=== PATIENT | male | born 1975 | race Caucasian/White ===

== ENCOUNTER 2016-04-19 13:38 | Emergency (ER) | payer BC ==
[2016-04-19 14:00] VITALS: BP 123/64; PULSE 77; RESP 17; TEMP 98.4
--- NOTE | 2016-04-19 15:04 | ED ---
URI HPI - General Chief Complaint: Upper Respiratory Infection Stated Complaint: sore throat/Ribs hurting Time Seen by Provider: 04/19/16 14:40 Source: patient, RN notes reviewed Mode of arrival: ambulatory Limitations: no limitations - History of Present Illness Initial Comments: Patient is a 32-year-old male with chief complaint of a left rib pain with coughing. Patient reports he is recently gotten over strep throat and influenza Plan the antibiotics approximately 3 days ago. Patient reports that he has no sore throat or upper respiratory congestion but feels that he now has bronchitis and possible pneumonia with this increased cough in the chest pain. Patient reports that earlier today he was coughing so hard he felt a pop in his left ribs. Patient denies any other specific injury to cause the pain. He denies any shortness of breath or chest pain right now. Patient denies any fever or chills. - Related Data Home Medications Medication Instructions Recorded Confirmed Atenolol [Atenolol] 50 mg PO DAILY@1200 08/13/15 09/28/15 Diazepam [Diazepam] 10 mg PO DAILY@1200 08/13/15 09/28/15 Previous Rx's Medication Instructions Recorded Albuterol Inhaler [Ventolin Hfa 1 - 2 puff INHALATION Q6HR PRN #1 04/19/16 Inhaler] inhaler methylPREDNISolone Dose Pack 4 mg PO DIRECTED #21 package 04/19/16 [Medrol Dose Pack] Allergies Allergy/AdvReac Type Severity Reaction Status Date / Time codeine Allergy Hallucinati Verified 04/19/16 13:56 ons Penicillins Allergy Rash/Hives Verified 04/19/16 13:56 Review of Systems ROS Statement: Those systems with pertinent positive or pertinent negative responses have been documented in the HPI. ROS Other: All systems not noted in ROS Statement are negative. Past Medical History Past Medical History: Hypertension History of Any Multi-Drug Resistant Organisms: None Reported Past Surgical History: No Surgical Hx Reported Past Psychological History: Anxiety Smoking Status: Current every day smoker Past Alcohol Use History: None Reported Past Drug Use History: None Reported General Exam - General Exam Comments Initial Comments: Patient is a well-appearing 40-year-old male. He does not appear to be in any acute distress. Limitations: no limitations General appearance: alert, in no apparent distress Head exam: Present: atraumatic, normocephalic, normal inspection Eye exam: Present: normal appearance, PERRL, EOMI. Absent: scleral icterus, conjunctival injection, periorbital swelling ENT exam: Present: normal exam, mucous membranes moist Neck exam: Present: normal inspection. Absent: tenderness, meningismus, lymphadenopathy Respiratory exam: Present: normal lung sounds bilaterally, other (Patient does have a mild productive cough with deep inspiration.). Absent: respiratory distress, wheezes, rales, rhonchi, stridor Cardiovascular Exam: Present: regular rate, normal rhythm, normal heart sounds. Absent: systolic murmur, diastolic murmur, rubs, gallop, clicks GI/Abdominal exam: Present: soft, normal bowel sounds. Absent: distended, tenderness, guarding, rebound, rigid Extremities exam: Present: normal inspection, full ROM, normal capillary refill. Absent: tenderness, pedal edema, joint swelling, calf tenderness Back exam: Present: normal inspection Neurological exam: Present: alert, oriented X3, CN II-XII intact Psychiatric exam: Present: normal affect, normal mood Skin exam: Present: warm, dry, intact, normal color. Absent: rash Course Vital Signs 04/19/16 13:56 Temperature 98.4 F Pulse Rate 77 Respiratory 17 Rate Blood Pressure 123/64 O2 Sat by Pulse 96 Oximetry Medical Decision Making - Medical Decision Making Patient is a 32-year-old male chief complaint of cough and left rib pain with coughing. Patient reports that earlier today he felt a rib pop due to significant coughing. He denies any fever or chills. Patient reports that he recently got over influenza and strep throat and completed antibiotics 2 days ago. Patient denies any other symptoms including fever or chills. Chest x-ray was reviewed. Patient has no wheezing at this time. Patient Xray is negative for any acute process.PAtient will be given Rx for steriods. Advised to follow up with PCP. Return parameters discussed. Disposition Clinical Impression: Bronchitis Disposition: HOME SELF-CARE Condition: Good Instructions: Acute Bronchitis (ED) Additional Instructions: Patient instructed to complete steroid prescription. Follow-up with primary care provider. Return to the [facility] if any alarming signs or symptoms occur. Prescriptions: Albuterol Inhaler [Ventolin Hfa Inhaler] 1 - 2 puff INHALATION Q6HR PRN #1 inhaler PRN Reason: Shortness Of Breath methylPREDNISolone Dose Pack [Medrol Dose Pack] 4 mg PO DIRECTED #21 package Referrals: Judith Rodriguez MD [Primary Care Provider] - 1-2 days Time of Disposition: 15:28
--- NOTE | 2016-04-19 15:21 | XR ---
EXAMINATION TYPE: XR chest 2V DATE OF EXAM: 04/19/2016 2:58 PM COMPARISON: NONE INDICATION: Pain, cough x2 months TECHNIQUE: Frontal and lateral views of the chest are obtained. FINDINGS: The heart size is normal. The pulmonary vasculature is normal. The lungs are clear. IMPRESSION: 1. No acute pulmonary process.
== END 2016-04-19 15:43 | disposition home or self-care (01) ==
LOC: EC 13:38
DX: J40 Bronchitis, not specified as acute or chronic (principal); R07.81 Pleurodynia; I10 Essential (primary) hypertension; F41.9 Anxiety disorder, unspecified; Z79.899 Other long term (current) drug therapy; Z88.5 Allergy status to narcotic agent; Z88.0 Allergy status to penicillin; F17.200 Nicotine dependence, unspecified, uncomplicated
CPT/HCPCS: 71020; 99283

== ENCOUNTER 2016-07-06 18:14 | Emergency (ER) | payer BC ==
--- NOTE | 2016-07-06 20:13 | ED ---
Extremity Problem HPI - General Chief complaint: Extremity Problem,Nontraumatic Stated complaint: CHEST/SHOULDER PAIN BREATHING, LIFTING OR COUGHIN Time Seen by Provider: 07/06/16 19:51 Source: patient, RN notes reviewed Mode of arrival: ambulatory Limitations: no limitations - History of Present Illness Initial comments: Patient is a 40-year-old male. Patient reports that over the past A he's had some left shoulder and chest pain whenever he is coughing or moving his arms. Patient reports that he did a different job at work today and had a lot of movement with her shoulders and arms. Patient states that he has full range of motion of her shoulder and chest it just hurts with movement. He did not take any Motrin or Tylenol. Patient denies any trauma or falls to the area. Patient states he is no numbness or tingling down the arms and has full strength at this time. Patient denies any recent fever, chills, shortness of breath, chest pain, back pain, abdominal pain, nausea vomiting, numbness or tingling, dysuria or hematuria, constipation or diarrhea, headaches or visual changes, or any other current symptoms. - Related Data Home Medications Medication Instructions Recorded Confirmed Atenolol [Atenolol] 50 mg PO DAILY@1200 08/13/15 07/06/16 Diazepam [Diazepam] 10 mg PO DAILY@1200 08/13/15 07/06/16 Previous Rx's Medication Instructions Recorded Naproxen 500 mg PO Q12HR #20 tab 07/06/16 Allergies Allergy/AdvReac Type Severity Reaction Status Date / Time codeine Allergy Hallucinati Verified 07/06/16 19:40 ons Penicillins Allergy Rash/Hives Verified 07/06/16 19:40 Review of Systems ROS Statement: Those systems with pertinent positive or pertinent negative responses have been documented in the HPI. ROS Other: All systems not noted in ROS Statement are negative. Past Medical History Past Medical History: Hypertension History of Any Multi-Drug Resistant Organisms: None Reported Past Surgical History: No Surgical Hx Reported Past Psychological History: Anxiety Smoking Status: Current every day smoker Past Alcohol Use History: None Reported Past Drug Use History: None Reported General Exam Limitations: no limitations General appearance: alert, in no apparent distress Head exam: Present: atraumatic, normocephalic, normal inspection Eye exam: Present: normal appearance, PERRL, EOMI. Absent: scleral icterus, conjunctival injection, periorbital swelling ENT exam: Present: normal exam, mucous membranes moist Neck exam: Present: normal inspection. Absent: tenderness, meningismus, lymphadenopathy Respiratory exam: Present: normal lung sounds bilaterally. Absent: respiratory distress, wheezes, rales, rhonchi, stridor Cardiovascular Exam: Present: regular rate, normal rhythm, normal heart sounds. Absent: systolic murmur, diastolic murmur, rubs, gallop, clicks GI/Abdominal exam: Present: soft, normal bowel sounds. Absent: distended, tenderness, guarding, rebound, rigid Extremities exam: Present: normal inspection, full ROM, normal capillary refill , other (Patient is reproducible left shoulder tenderness. Also reproducible left anterior chest wall tenderness.). Absent: tenderness, pedal edema, joint swelling, calf tenderness Back exam: Present: normal inspection Neurological exam: Present: alert, oriented X3, CN II-XII intact Psychiatric exam: Present: normal affect, normal mood Skin exam: Present: warm, dry, intact, normal color. Absent: rash Course Vital Signs 07/06/16 19:40 Temperature 97.6 F Pulse Rate 69 Respiratory 18 Rate Blood Pressure 122/69 O2 Sat by Pulse 98 Oximetry Medical Decision Making - Medical Decision Making Is a 32-year-old male chief complaint of left shoulder and chest pain with any movement. Patient pain is reproducible with movements. Patient denies any trauma. I discussed that we did not Need X-Rays at This Time. Discussed with the Patient to Take Anti-Inflammatory Medication Apply Heat over the Area. Patient Agrees with Treatment Plan. Also Discussed Following up with Orthopedic Physician If Symptoms Continue Persist. Disposition Clinical Impression: Left shoulder pain Disposition: HOME SELF-CARE Condition: Stable Instructions: Muscle Strain (ED) Additional Instructions: Patient advised to take Motrin or Tylenol or naproxen for pain. Apply heat and ice over the areas. Follow-up with primary care physician within the next 2-3 days. Prescriptions: Naproxen 500 mg PO Q12HR #20 tab Referrals: Judith Rodriguez MD [Primary Care Provider] - 1-2 days Time of Disposition: 20:11
[2016-07-06 20:14] VITALS: BP 122/69; PULSE 69; RESP 18; TEMP 97.6
== END 2016-07-06 20:19 | disposition home or self-care (01) ==
LOC: EC 18:14
DX: M25.512 Pain in left shoulder (principal); R07.9 Chest pain, unspecified; I10 Essential (primary) hypertension; F41.9 Anxiety disorder, unspecified; F17.200 Nicotine dependence, unspecified, uncomplicated; Z79.899 Other long term (current) drug therapy; Z88.0 Allergy status to penicillin; Z88.5 Allergy status to narcotic agent
CPT/HCPCS: 99284

== ENCOUNTER 2019-03-02 15:54 | Emergency (ER) | payer BC, OTHER ==
[2019-03-02 16:17] VITALS: RESP 18
[2019-03-02] MEDS ORDERED: SODIUM CHLORIDE 0.9% 500 ML 500 ML IV STA (16:35)
[2019-03-02] MEDS ORDERED: MORPHINE SULFATE 4 MG/ML SYRINGE IV STA (16:37)
[2019-03-02 17:10] LABS: Basophils # (A) 0.1 k/uL (0-0.2); Basophils % (A) 1 %; Eosinophils # (A) 0.3 k/uL (0-0.7); Eosinophils % (A) 3 %; HCT 47.1 % (39.0-53.0); HGB 15.5 gm/dL (13.0-17.5); Lymphocytes # (A) 1.8 k/uL (1.0-4.8); Lymphocytes % (A) 21 %; MCH 29.2 pg (25.0-35.0); MCHC 32.9 g/dL (31.0-37.0); MCV 88.6 fL (80.0-100.0); Mean Platelet Volume 7.2; Monocytes # (A) 0.5 k/uL (0-1.0); Monocytes % (A) 5 %; Neutrophils # (A) 5.8 k/uL (1.3-7.7); Neutrophils % (A) 68 %; Platelet Count 334 k/uL (150-450); RBC 5.32 m/uL (4.30-5.90); RDW 13.4 % (11.5-15.5); WBC 8.5 k/uL (3.8-10.6)
[2019-03-02 17:19] LABS: Appearance,Urine Clear (Clear); Bilirubin,Urine Negative (Negative); Blood,Urine Negative (Negative); Color,Urine Yellow; Glucose,Urine (UA) Negative (Negative); Ketones,Urine Negative (Negative); Leukocyte Esterase,Urine Negative (Negative); Nitrite,Urine Negative (Negative); Protein,Urine Trace (Negative); Specific Gravity,Urine 1.029 (1.001-1.035)
[2019-03-02 17:20] LABS: ALT 25 U/L (4-49); AST 27 U/L (17-59); African American GFR (CKD) >90 (>60 ml/min/1.73 sqM); Albumin 4.2 g/dL (3.5-5.0); Alkaline Phosphatase 132 U/L (38-126); Anion Gap 8 mmol/L; Blood Urea Nitrogen 16 mg/dL (9-20); Calcium 9.4 mg/dL (8.4-10.2); Carbon Dioxide 21 mmol/L (22-30); Chloride 110 mmol/L (98-107); Glucose 94 mg/dL (74-99); Non-African American GFR(CKD) >90 (>60 ml/min/1.73 sqM); Potassium 4.3 mmol/L (3.5-5.1); Sodium 139 mmol/L (137-145); Total Bilirubin 0.9 mg/dL (0.2-1.3); Total Protein 7.1 g/dL (6.3-8.2)
--- NOTE | 2019-03-02 18:46 | XR ---
EXAMINATION TYPE: XR chest 2V DATE OF EXAM: 03/02/2019 COMPARISON: 04/19/2016 HISTORY: Chest pain TECHNIQUE: 2 views FINDINGS: There is no heart failure. Heart size is normal. There is minimal linear density in the verito gula left upper lobe. There is no pleural effusion. Bony thorax is intact. IMPRESSION: Minimal scarring or subsegmental atelectasis in the lingula unchanged. Normal heart.
[2019-03-02] MEDS ORDERED: predniSONE 50 MG TAB PO STA (18:49)
[2019-03-02] MEDS ORDERED: IBUPROFEN 600 MG STARTER PACK 4 TAB BTL PO STA (18:49)
[2019-03-02] MEDS ORDERED: AZITHROMYCIN 500 MG TAB PO STA (18:49)
--- NOTE | 2019-03-02 18:54 | ED ---
General Adult HPI - General Source: patient, RN notes reviewed, old records reviewed Mode of arrival: ambulatory Limitations: no limitations <James Perea - Last Filed: 03/02/19 18:52> <Yoli Lopes - Last Filed: 03/04/19 14:27> - General Chief complaint: Abdominal Pain Stated complaint: Side/Back Pain Time Seen by Provider: 03/02/19 16:22 - History of Present Illness Initial comments: 43-year-old male patient presents to ED for chief complaint of bilateral flank pain. Patient reports that he recently had a cold and has been coughing consistently. Denies any chest pain shortness breath. Patient does report that HAS caused his flanks become very painful. Worse with range of motion. Denies anterior abdominal pain. Denies any other complaints at this time. Systemic: Pt denies fatigue, fever/chills, rash. Pt denies weakness, night sweats, weight loss. Neuro: Pt denies headache, visual disturbances, syncope or pre-syncope. HEENT: Pt denies ocular discharge or irritation, otalgia, rhinorrhea, p haryngitis or notable lymphadenopathy. Cardiopulmonary: Pt denies chest pain, SOB, heart palpitations, dyspnea on exertion. Abdominal/GI: Pt denies abdominal pain, n/v/d. : Pt denies dysuria, burning w/ urination, frequency/urgency. Denies new onset urinary or bowel incontinence. MSK: Pt denies myalgia, loss of strength or function in extremities. Neuro: Pt denies new onset weakness, paresthesias. (James Perea) - Related Data Home Medications Medication Instructions Recorded Confirmed Atenolol 50 mg PO DAILY@1200 08/13/15 07/06/16 Diazepam 10 mg PO DAILY@1200 08/13/15 07/06/16 Previous Rx's Medication Instructions Recorded Naproxen 500 mg PO Q12HR #20 tab 07/06/16 Albuterol Inhaler [Ventolin Hfa 1 - 2 puff INHALATION Q4-6H PRN #1 03/02/19 Inhaler] inhaler Azithromycin [Zithromax Z-pack] 0 mg PO DIRECTED #6 tab 03/02/19 predniSONE 50 mg PO DAILY #4 tab 03/02/19 Allergies Allergy/AdvReac Type Severity Reaction Status Date / Time codeine Allergy Hallucinati Verified 03/02/19 16:16 ons Penicillins Allergy Rash/Hives Verified 03/02/19 16:16 Review of Systems ROS Other: All systems not noted in ROS Statement are negative. <James Perea - Last Filed: 03/02/19 18:52> ROS Other: All systems not noted in ROS Statement are negative. <Yoli Lopes Yaritza - Last Filed: 03/04/19 14:27> ROS Statement: Those systems with pertinent positive or pertinent negative responses have been documented in the HPI. Past Medical History Past Medical History: Hypertension History of Any Multi-Drug Resistant Organisms: None Reported Past Surgical History: Hernia Repair Past Psychological History: Anxiety Smoking Status: Current every day smoker Past Alcohol Use History: None Reported Past Drug Use History: None Reported <James Perea - Last Filed: 03/02/19 18:52> General Exam Limitations: no limitations <James Perea - Last Filed: 03/02/19 18:52> - General Exam Comments Initial Comments: Constitutional: NAD, AOX3, Pt has pleasant affect. HEENT: NC/AT, trachea midline, neck supple, no lymphadenopathy. Posterior pharynx non erythematous, without exudates. External ears appear normal, without discharge. Mucous membranes moist. Eyes PERRLA, EOM intact. There is no scleral icterus. No pallor noted. Cardiopulmonary: RRR, no murmurs, rubs or gallops, no JVD noted. Lungs CTAB in anterior and posterior [place]. No peripheral edema. Abdominal exam: Abdomen soft and non-distended. Abdomen non-tender to palpation in all 4 quadrants. Bowel sounds active in LLQ. No hepatosplenomegaly. No ecchymosis. Flanks mildly tender bilaterally. Reproducible with range of motion. Neuro: CN II-XII grossly intact. No nuchal rigidity. No raccon eyes, no leblanc sign, no hemotympanum. No cervical spinal tenderness. MSK: No posterior calf tenderness bilaterally, homans sign negative bilaterally. Posterior tibialis and radial pulse +2 bilaterally. Sensation intact in upper and lower extremities. Full active ROM in upper and lower extremities, 5/5 stregnth. (James Perea) Course Vital Signs 03/02/19 03/02/19 16:14 19:07 Temperature 98.1 F 97.9 F Pulse Rate 72 65 Respiratory 18 18 Rate Blood Pressure 107/66 127/82 O2 Sat by Pulse 97 98 Oximetry Medical Decision Making - Lab Data Result diagrams: 03/02/19 16:40 03/02/19 16:40 <James Perea - Last Filed: 03/02/19 18:52> - Lab Data Result diagrams: 03/02/19 16:40 03/02/19 16:40 <Yoli Lopes - Last Filed: 03/04/19 14:27> - Medical Decision Making 43-year-old male patient with NC for chief complaint of bilateral flank pain after coughing. Patient reports that he recently had upper respiratory infection and has been coughing since. Patient vital signs are stable, afebrile. Patient is perk negative. Denies chest pain or shortness of breath. Physical exam displayed flanks tender, lungs clear to auscultation bilaterally. Investigations are non-impressive. Chest x-ray slight minimal scarring or subsegmental atelectasis in the lingula unchanged. Normal heart. Patient also seen by attending physician Dr. lopes, discharge or steroids, breathing treatment, azithromycin. Was appropriate as needed for discomfort. Will return to ER if condition worsens. Will follow up with PCP on monday. (James Perea) I was available for consultation in the emergency department. The history and physical exam were done by the midlevel provider. I was consulted for this patients care. I reviewed the case with the midlevel provider and based on their presentation of the patient, I agree with the assessment, medical decision making and plan of care as documented. Chart was dictated using e-contratos dictation software. Attempts were made to correct any dictation errors however some typographical errors may persist. (Yoli Lopes) - Lab Data Lab Results 03/02/19 03/02/19 03/02/19 Range/Units 16:40 16:40 16:53 WBC 8.5 (3.8-10.6) k/uL RBC 5.32 (4.30-5.90) m/uL Hgb 15.5 (13.0-17.5) gm/dL Hct 47.1 (39.0-53.0) % MCV 88.6 (80.0-100.0) fL MCH 29.2 (25.0-35.0) pg MCHC 32.9 (31.0-37.0) g/dL RDW 13.4 (11.5-15.5) % Plt Count 334 (150-450) k/uL Neutrophils % 68 % Lymphocytes % 21 % Monocytes % 5 % Eosinophils % 3 % Basophils % 1 % Neutrophils # 5.8 (1.3-7.7) k/uL Lymphocytes # 1.8 (1.0-4.8) k/uL Monocytes # 0.5 (0-1.0) k/uL Eosinophils # 0.3 (0-0.7) k/uL Basophils # 0.1 (0-0.2) k/uL Sodium 139 (137-145) mmol/L Potassium 4.3 (3.5-5.1) mmol/L Chloride 110 H (98-107) mmol/L Carbon Dioxide 21 L (22-30) mmol/L Anion Gap 8 mmol/L BUN 16 (9-20) mg/dL Creatinine 0.80 (0.66-1.25) mg/dL Est GFR (CKD-EPI)AfAm >90 (>60 ml/min/1.73 sqM) Est GFR (CKD-EPI)NonAf >90 (>60 ml/min/1.73 sqM) Glucose 94 (74-99) mg/dL Calcium 9.4 (8.4-10.2) mg/dL Total Bilirubin 0.9 (0.2-1.3) mg/dL AST 27 (17-59) U/L ALT 25 (4-49) U/L Alkaline Phosphatase 132 H (38-126) U/L Total Protein 7.1 (6.3-8.2) g/dL Albumin 4.2 (3.5-5.0) g/dL Lipase 67 (23-300) U/L Urine Color Yellow Urine Appearance Clear (Clear) Urine pH 6.0 (5.0-8.0) Ur Specific [place] 1.029 (1.001-1.035) Urine Protein Trace H (Negative) Urine Glucose (UA) Negative (Negative) Urine Ketones Negative (Negative) Urine Blood Negative (Negative) Urine Nitrite Negative (Negative) Urine Bilirubin Negative (Negative) Urine Urobilinogen 2.0 (<2.0) mg/dL Ur Leukocyte Esterase Negative (Negative) Disposition Is patient prescribed a controlled substance at d/c from ED?: No <EliazarJames J - Last Filed: 03/02/19 18:52> <Yoli Lopes - Last Filed: 03/04/19 14:27> Clinical Impression: Cough, Musculoskeletal pain Disposition: HOME SELF-CARE Condition: Stable Instructions (If sedation given, give patient instructions): Musculoskeletal Pain (ED), Acute Cough (ED) Additional Instructions: Take medication as directed. Follow-up with primary care provider tomorrow. Return to ER if condition worsens in any way. Use breathing treatments as needed Prescriptions: predniSONE 50 mg PO DAILY #4 tab Albuterol Inhaler [Ventolin Hfa Inhaler] 1 - 2 puff INHALATION Q4-6H PRN #1 inhaler PRN Reason: Cough Azithromycin [Zithromax Z-pack] 0 mg PO DIRECTED #6 tab Referrals: Judith Rodriguez MD [Primary Care Provider] - 1-2 days
[2019-03-02 19:07] VITALS: BP 127/82; PULSE 65; TEMP 97.9
== END 2019-03-02 19:07 | disposition home or self-care (01) ==
LOC: EC 15:54
DX: M79.18 Myalgia, other site (principal); R05 Cough; I10 Essential (primary) hypertension; F41.9 Anxiety disorder, unspecified; F17.200 Nicotine dependence, unspecified, uncomplicated; Z88.0 Allergy status to penicillin; Z88.5 Allergy status to narcotic agent; Z79.899 Other long term (current) drug therapy; Z87.09 Personal history of other diseases of the respiratory system
CPT/HCPCS: 36415; 80053; 83690; 85025; 81003; 71046; 99284; 96374; 96361; J2270; J7512

== ENCOUNTER 2019-03-17 18:53 | Emergency (ER) | payer OTHER ==
[2019-03-17 19:09] VITALS: RESP 16; TEMP 97.8
[2019-03-17] MEDS ORDERED: KETOROLAC 30 MG/ML 1 ML VIAL IVP STA (19:28)
[2019-03-17] MEDS ORDERED: SODIUM CHLORIDE 0.9% 1,000 ML IV STA (19:28)
[2019-03-17 19:59] LABS: Basophils # (A) 0.1 k/uL (0-0.2); Basophils % (A) 1 %; Eosinophils # (A) 0.3 k/uL (0-0.7); Eosinophils % (A) 3 %; HCT 46.1 % (39.0-53.0); HGB 15.5 gm/dL (13.0-17.5); Lymphocytes # (A) 2.3 k/uL (1.0-4.8); Lymphocytes % (A) 20 %; MCH 30.1 pg (25.0-35.0); MCHC 33.6 g/dL (31.0-37.0); MCV 89.4 fL (80.0-100.0); Mean Platelet Volume 7.5; Monocytes # (A) 0.6 k/uL (0-1.0); Monocytes % (A) 5 %; Neutrophils # (A) 8.4 k/uL (1.3-7.7); Neutrophils % (A) 71 %; Platelet Count 250 k/uL (150-450); RBC 5.15 m/uL (4.30-5.90); RDW 13.9 % (11.5-15.5); WBC 11.9 k/uL (3.8-10.6)
[2019-03-17 20:10] LABS: ALT 23 U/L (4-49); AST 22 U/L (17-59); African American GFR (CKD) >90 (>60 ml/min/1.73 sqM); Albumin 3.9 g/dL (3.5-5.0); Alkaline Phosphatase 122 U/L (38-126); Amylase 55 U/L (30-110); Anion Gap 8 mmol/L; Blood Urea Nitrogen 18 mg/dL (9-20); Calcium 9.3 mg/dL (8.4-10.2); Carbon Dioxide 24 mmol/L (22-30); Chloride 106 mmol/L (98-107); Glucose 124 mg/dL (74-99); Non-African American GFR(CKD) >90 (>60 ml/min/1.73 sqM); Potassium 4.2 mmol/L (3.5-5.1); Sodium 138 mmol/L (137-145); Total Bilirubin 0.8 mg/dL (0.2-1.3); Total Protein 6.8 g/dL (6.3-8.2)
--- NOTE | 2019-03-17 20:14 | ED ---
General Adult HPI - General Chief complaint: Shortness of Breath Stated complaint: SOB Time Seen by Provider: 03/17/19 19:11 Source: patient, RN notes reviewed Mode of arrival: ambulatory Limitations: no limitations - History of Present Illness Initial comments: 43-year-old male to past medical history of hypertension presents to the emergency department for a chief complaint of bilateral flank pain. Patient states he has had a cough for the past 3 weeks. States that because this cough he has started to have pain in his flank. This has been ongoing for 3 weeks. Sates the pain is improving somewhat but has not resolved. States his cough is also improved somewhat. He states that when he does cough he is short of breath. He denies any anterior chest pain or abdominal pain whatsoever. He denies fevers or chills. He states he did take antibiotics and steroids. He was prescribed an inhaler but was not able to have this filled.Patient has no other complaints at this time including chest pain, abdominal pain, nausea or vomiting, headache, or visual changes. - Related Data Home Medications Medication Instructions Recorded Confirmed Atenolol 50 mg PO DAILY@1200 08/12/16 07/06/16 Diazepam 10 mg PO DAILY@1200 //16 07/06/16 Previous Rx's Medication Instructions Recorded Naproxen 500 mg PO Q12HR #20 tab 07/06/16 Albuterol Inhaler [Ventolin Hfa 1 - 2 puff INHALATION Q4-6H PRN #1 03/02/19 Inhaler] inhaler Azithromycin [Zithromax Z-pack] 0 mg PO DIRECTED #6 tab 03/02/19 predniSONE 50 mg PO DAILY #4 tab 03/02/19 Lidocaine 5% Patch [Lidoderm 5% 1 patch TOPICAL DAILY PRN 5 Days 03/17/19 Patch] #5 patch Allergies Allergy/AdvReac Type Severity Reaction Status Date / Time codeine Allergy Hallucinati Verified 03/17/19 19:09 ons Penicillins Allergy Rash/Hives Verified 03/17/19 19:09 Review of Systems ROS Statement: Those systems with pertinent positive or pertinent negative responses have been documented in the HPI. ROS Other: All systems not noted in ROS Statement are negative. Past Medical History Past Medical History: Hypertension History of Any Multi-Drug Resistant Organisms: None Reported Past Surgical History: Hernia Repair Past Psychological History: Anxiety Smoking Status: Current every day smoker Past Alcohol Use History: None Reported Past Drug Use History: None Reported General Exam Limitations: no limitations General appearance: alert, in no apparent distress Head exam: Present: atraumatic, normocephalic, normal inspection Eye exam: Present: normal appearance, PERRL, EOMI. Absent: scleral icterus, co njunctival injection, periorbital swelling ENT exam: Present: normal exam, mucous membranes moist Neck exam: Present: normal inspection, full ROM. Absent: tenderness, meningismus, lymphadenopathy Respiratory exam: Present: normal lung sounds bilaterally. Absent: respiratory distress, wheezes, rales, rhonchi, stridor Cardiovascular Exam: Present: regular rate, normal rhythm, normal heart sounds. Absent: systolic murmur, diastolic murmur, rubs, gallop, clicks GI/Abdominal exam: Present: soft, normal bowel sounds. Absent: distended, tenderness, guarding, rebound, rigid Back exam: Present: CVA tenderness (R), CVA tenderness (L) Course Vital Signs 03/17/19 19:08 Temperature 97.8 F Pulse Rate 88 Respiratory 16 Rate Blood Pressure 125/80 O2 Sat by Pulse 98 Oximetry Medical Decision Making - Medical Decision Making Patient has tenderness noted of the bilateral flanks. This pain is worsened with movement. States that this all started when he developed a cough. Vitals are stable. CBC and CMP is unremarkable. Urinalysis is negative for infection or blood. Patient is having bilateral flank pain I did order a CT which is negative. he was given Toradol which did help significantly with his pain. At this time I think pain is likely musculoskeletal in nature given pain worsens with movement and is tender to palpation. He does not have any intra-abdominal tenderness. At this time patient will be given lidocaine patch. He will follow up with primary care. He'll return here if he has any worsening symptoms. - Lab Data Result diagrams: 03/17/19 19:45 03/17/19 19:45 Lab Results 03/17/19 03/17/19 03/17/19 Range/Units 19:45 19:45 19:45 WBC 11.9 H (3.8-10.6) k/uL RBC 5.15 (4.30-5.90) m/uL Hgb 15.5 (13.0-17.5) gm/dL Hct 46.1 (39.0-53.0) % MCV 89.4 (80.0-100.0) fL MCH 30.1 (25.0-35.0) pg MCHC 33.6 (31.0-37.0) g/dL RDW 13.9 (11.5-15.5) % Plt Count 250 (150-450) k/uL Neutrophils % 71 % Lymphocytes % 20 % Monocytes % 5 % Eosinophils % 3 % Basophils % 1 % Neutrophils # 8.4 H (1.3-7.7) k/uL Lymphocytes # 2.3 (1.0-4.8) k/uL Monocytes # 0.6 (0-1.0) k/uL Eosinophils # 0.3 (0-0.7) k/uL Basophils # 0.1 (0-0.2) k/uL Sodium 138 (137-145) mmol/L Potassium 4.2 (3.5-5.1) mmol/L Chloride 106 (98-107) mmol/L Carbon Dioxide 24 (22-30) mmol/L Anion Gap 8 mmol/L BUN 18 (9-20) mg/dL Creatinine 0.75 (0.66-1.25) mg/dL Est GFR (CKD-EPI)AfAm >90 (>60 ml/min/1.73 sqM) Est GFR (CKD-EPI)NonAf >90 (>60 ml/min/1.73 sqM) Glucose 124 H (74-99) mg/dL Calcium 9.3 (8.4-10.2) mg/dL Total Bilirubin 0.8 (0.2-1.3) mg/dL AST 22 (17-59) U/L ALT 23 (4-49) U/L Alkaline Phosphatase 122 (38-126) U/L Total Protein 6.8 (6.3-8.2) g/dL Albumin 3.9 (3.5-5.0) g/dL Amylase 55 (30-110) U/L Lipase 102 (23-300) U/L Urine Color Yellow Urine Appearance Clear (Clear) Urine pH 5.0 (5.0-8.0) Ur Specific [place] 1.026 (1.001-1.035) Urine Protein Negative (Negative) Urine Glucose (UA) Negative (Negative) Urine Ketones Negative (Negative) Urine Blood Negative (Negative) Urine Nitrite Negative (Negative) Urine Bilirubin Negative (Negative) Urine Urobilinogen <2.0 (<2.0) mg/dL Ur Leukocyte Esterase Negative (Negative) Disposition Clinical Impression: Musculoskeletal pain, Flank pain Disposition: HOME SELF-CARE Condition: Good Instructions (If sedation given, give patient instructions): Flank Pain (ED) Additional Instructions: Please use lidocaine patch as directed. Continue Motrin and Tylenol. Follow-up with primary care in 1-2 days. Return to the emergency department if you have any worsening symptoms. Prescriptions: Lidocaine 5% Patch [Lidoderm 5% Patch] 1 patch TOPICAL DAILY PRN 5 Days #5 patch PRN Reason: Pain Is patient prescribed a controlled substance at d/c from ED?: No Referrals: Judith Rodriguez MD [Primary Care Provider] - 1-2 days Time of Disposition: 21:40
--- NOTE | 2019-03-17 20:20 | XR ---
EXAMINATION TYPE: XR chest 2V DATE OF EXAM: 03/17/2019 COMPARISON: 03/02/2019 HISTORY: Cough TECHNIQUE: 2 views FINDINGS: Heart and mediastinum are normal. Lungs are clear of consolidation. There are no hilar mass es. Bony thorax is intact. IMPRESSION: No active cardiopulmonary disease. No adverse change.
--- NOTE | 2019-03-17 20:49 | CT ---
EXAMINATION TYPE: CT abdomen pelvis wo con DATE OF EXAM: 03/17/2019 COMPARISON: 08/13/2015 HISTORY: Bilateral flank pain CT DLP: 1374.4 mGycm Automated exposure control for dose reduction was used. The lung bases are clear. There is no pleural effusion. Heart size is normal. Liver spleen stomach pancreas gallbladder appear normal. Bile ducts are not dilated. There is no adrenal mass. Kidneys have normal size and contour. There is no hydronephrosis. Ureters a re not dilated. There is no retroperitoneal adenopathy. Appendix is short and appears normal. Bladder distends smoothly. There is small right side inguinal hernia that contains fat unchanged.. Th ere is no free fluid in the pelvis. There is no evidence of pelvic mass. There is no mesenteric edema. There is no ascites or free air. T here is no evidence of bowel obstruction. Lumbar spine is intact. Bony pelvis is intact. IMPRESSION: Negative CT scan abdomen and pelvis. No adverse change compared to old exam.
[2019-03-17 20:58] LABS: Appearance,Urine Clear (Clear); Bilirubin,Urine Negative (Negative); Blood,Urine Negative (Negative); Color,Urine Yellow; Glucose,Urine (UA) Negative (Negative); Ketones,Urine Negative (Negative); Leukocyte Esterase,Urine Negative (Negative); Nitrite,Urine Negative (Negative); Protein,Urine Negative (Negative); Specific Gravity,Urine 1.026 (1.001-1.035); Urobilinogen,Urine <2.0 mg/dL (<2.0)
[2019-03-17 21:55] VITALS: BP 128/87; PULSE 87
== END 2019-03-17 21:55 | disposition home or self-care (01) ==
LOC: EC 18:53
DX: R10.9 Unspecified abdominal pain (principal); R06.02 Shortness of breath; R05 Cough; I10 Essential (primary) hypertension; F17.200 Nicotine dependence, unspecified, uncomplicated; Z79.899 Other long term (current) drug therapy; Z88.0 Allergy status to penicillin; Z88.5 Allergy status to narcotic agent
CPT/HCPCS: 36415; 80053; 82150; 83690; 85025; 81003; 71046; 74176; 99285; 96374; 96361; J1885

== ENCOUNTER → 2020-01-29 | Outpatient (CLI) | payer OTHER ==
--- NOTE | 2020-01-30 10:41 | ECHOF ---
Referral Reason:I51.7 Cardiomegaly, R07.9 Chest pain MEASUREMENTS -------- HEIGHT: 182.9 cm WEIGHT: 129.7 kg BP: IVSd: 1.2 cm (0.6 - 1.1) LVIDd: 4.2 cm (3.9 - 5.3) LVPWd: 1.7 cm (0.6 - 1.1) IVSs: 1.5 cm LVIDs: 3.1 cm LVPWs: 1.5 cm LA Diam: 3.7 cm (2.7 - 3.8) RVIDd: 3.4 cm (< 3.3) LAESV Index (A-L): 18.00 ml/m Ao Diam: 3.0 cm (2.0 - 3.7) EPSS: 0.6 cm MV E Oleg: 0.82 m/s MV DecT: 233 ms MV A Oleg: 0.47 m/s MV E/A Ratio: 1.75 RAP: 5.00 mmHg RVSP: 12.89 mmHg MV EF SLOPE: 78.57 mm/s (70 - 150) MV EXCURSION: 16.31 mm (> 18.000) FINDINGS -------- Sinus rhythm. Morbid Obesity The left ventricular size is normal. There is mild concentric left ventricular hypertrophy. Overa ll left ventricular systolic function is low-normal with, an EF between 50 - 55 %. The right ventricle is normal in size. The left atrial size is normal. Normal LA size by volume 22+/-6 ml/m2. The right atrial size is normal. The aortic valve was not well visualized. Mild mitral regurgitation is present. Mild tricuspid regurgitation present. Right ventricular systolic pressure is normal at < 35 mmHg. The aortic root size is normal. Echo free space indicative of a pericardial fat pad. CONCLUSIONS -------- 1. Morbid Obesity 2. The left ventricular size is normal. 3. There is mild concentric left ventricular hypertrophy. 4. Overall left ventricular systolic function is low-normal with, an EF between 50 - 55 %. 5. The right ventricle is normal in size. 6. The left atrial size is normal. 7. Normal LA size by volume 22+/-6 ml/m2. 8. The right atrial size is normal. 9. The aortic valve was not well visualized. 10. Mild mitral regurgitation is present. 11. Mild tricuspid regurgitation present. 12. The aortic root size is normal. 13. Echo free space indicative of a pericardial fat pad. [employer]: Gloria Pelletier RDCS
== END | disposition home or self-care (01) ==
LOC: RADECHMAIN 14:45
PROVIDERS: ATTEND Internal Medicine
DX: I08.1 Rheumatic disorders of both mitral and tricuspid valves (principal); E66.01 Morbid (severe) obesity due to excess calories; Z88.0 Allergy status to penicillin; Z88.5 Allergy status to narcotic agent
CPT/HCPCS: 93306

== ENCOUNTER 2020-04-29 22:08 | Emergency (ER) | payer OTHER ==
[2020-04-29 22:15] VITALS: TEMP 98.4
[2020-04-29] MEDS ORDERED: SODIUM CHLORIDE 0.9% 1,000 ML IV STA (22:28)
--- NOTE | 2020-04-29 22:45 | ED ---
Chest Pain HPI - General Chief Complaint: Chest Pain Stated Complaint: Chest Pain Time Seen by Provider: 04/29/20 22:21 Source: patient, EMS, RN notes reviewed, old records reviewed Mode of arrival: EMS Limitations: no limitations - History of Present Illness Initial Comments: This is a 44-year-old male presents today to the ER for evaluation. Patient presents today for evaluation of a sudden episode of chest pain heaviness in his chest to his left shoulder left jaw neck area felt like a popping sensation in his chest and then became short of breath. Patient then checked his blood pressure and pulse which were both elevated his oxygen level at the time was normal. Patient has been going to cardiac evaluation as of late with no acute findings. He states he's had any symptoms episodically for over 5 years now. Patient currently has no complaints MD Complaint: chest pain -: hour(s) Onset: during rest Pain Location: substernal Pain Radiation: none Severity: moderate Severity scale (1-10): 6 Quality: tightness Consistency: now resolved Improves With: nothing Worsens With: nothing Anginal Symptoms: sense of impending doom Other Symptoms: palpitations Treatments Prior to Arrival: none - Related Data Home Medications Medication Instructions Recorded Confirmed Diazepam 10 mg PO DAILY 08/13/15 04/29/20 atenoloL [Atenolol] 50 mg PO BID 08/13/15 04/29/20 Albuterol Sulfate [Ventolin HFA] 2 puff INHALATION RT-QID PRN 04/29/20 04/29/20 Multivitamin [Multivitamins Adult 1 tab PO DAILY 04/29/20 04/29/20 Gummies] Tiotropium 18 Mcg/Puff [Spiriva] 1 puff INHALATION RT-DAILY 04/29/20 04/29/20 Umeclidinium [place] [Incruse 1 puff INHALATION RT-DAILY 04/29/20 04/29/20 Ellipta] Allergies Allergy/AdvReac Type Severity Reaction Status Date / Time codeine Allergy Hallucinati Verified 04/29/20 22:43 ons Penicillins Allergy Rash/Hives Verified 04/29/20 22:43 Review of Systems ROS Statement: Those systems with pertinent positive or pertinent negative responses have been documented in the HPI. ROS Other: All systems not noted in ROS Statement are negative. EKG Findings - EKG Comments: EKG Findings:: EKG shows NSR 67 IL 125 QRS 88 QTc 403 Past Medical History Past Medical History: Hypertension History of Any Multi-Drug Resistant Organisms: None Reported Past Surgical History: Hernia Repair Past Psychological History: Anxiety Smoking Status: Current every day smoker Past Alcohol Use History: None Reported Past Drug Use History: None Reported General Exam Limitations: no limitations General appearance: alert, in no apparent distress Head exam: Present: atraumatic, normocephalic, normal inspection Eye exam: Present: normal appearance, PERRL, EOMI. Absent: scleral icterus, conjunctival injection, periorbital swelling ENT exam: Present: normal exam, mucous membranes moist Neck exam: Present: normal inspection. Absent: tenderness, meningismus, lymphadenopathy Respiratory exam: Present: normal lung sounds bilaterally. Absent: respiratory distress, wheezes, rales, rhonchi, stridor Cardiovascular Exam: Present: regular rate, normal rhythm, normal heart sounds. Absent: systolic murmur, diastolic murmur, rubs, gallop, clicks GI/Abdominal exam: Present: soft, normal bowel sounds. Absent: distended, tenderness, guarding, rebound, rigid Extremities exam: Present: normal inspection, full ROM, normal capillary refill. Absent: tenderness, pedal edema, joint swelling, calf tenderness Back exam: Present: normal inspection Neurological exam: Present: alert, oriented X3, CN II-XII intact Psychiatric exam: Present: normal affect, normal mood Skin exam: Present: warm, dry, intact, normal color. Absent: rash Course Vital Signs 04/29/20 04/29/20 22:08 22:28 Temperature 98.4 F Pulse Rate 65 Respiratory 18 20 Rate Blood Pressure 157/119 O2 Sat by Pulse 99 Oximetry - Reevaluation(s) Reevaluation #1: 04/30/20 02:09 Medical record is reviewed Reevaluation #2: 04/30/20 02:09 spoke with patient at length regarding findings here in the ER including first and second troponin Reevaluation #3: 04/30/20 02:10 Further discussion of possibility of observation, patient really just keep outpatient evaluations Chest Pain MDM - MDM 44 male DEL with an episode of substernal chest pain CT of his chest is negative's troponin is negative 2 patient is this time is symptomatic management for he has been without symptoms here in the ER prefers discharge Disposition Clinical Impression: Chest pain Disposition: HOME SELF-CARE Condition: Undetermined Instructions (If sedation given, give patient instructions): Chest Pain (ED) Is patient prescribed a controlled substance at d/c from ED?: No Referrals: Judith Rodriguez MD [Primary Care Provider] - 1-2 days
[2020-04-29 22:51] LABS: Basophils # (A) 0.1 k/uL (0-0.2); Basophils % (A) 1 %; Eosinophils # (A) 0.5 k/uL (0-0.7); Eosinophils % (A) 5 %; HCT 48.6 % (39.0-53.0); HGB 16.4 gm/dL (13.0-17.5); Lymphocytes # (A) 2.6 k/uL (1.0-4.8); Lymphocytes % (A) 25 %; MCH 30.8 pg (25.0-35.0); MCHC 33.7 g/dL (31.0-37.0); MCV 91.5 fL (80.0-100.0); Mean Platelet Volume 7.9; Monocytes # (A) 0.5 k/uL (0-1.0); Monocytes % (A) 5 %; Neutrophils # (A) 6.5 k/uL (1.3-7.7); Neutrophils % (A) 63 %; Platelet Count 218 k/uL (150-450); RBC 5.31 m/uL (4.30-5.90); RDW 13.2 % (11.5-15.5); WBC 10.3 k/uL (3.8-10.6)
[2020-04-29 23:02] LABS: ALT 35 U/L (4-49); AST 46 U/L (17-59); African American GFR (CKD) >90 (>60 ml/min/1.73 sqM); Albumin 4.2 g/dL (3.5-5.0); Alkaline Phosphatase 84 U/L (38-126); Anion Gap 8 mmol/L; Blood Urea Nitrogen 15 mg/dL (9-20); Calcium 8.9 mg/dL (8.4-10.2); Carbon Dioxide 23 mmol/L (22-30); Chloride 105 mmol/L (98-107); Glucose 120 mg/dL (74-99); Lipase 110 U/L (23-300); Non-African American GFR(CKD) >90 (>60 ml/min/1.73 sqM); Sodium 136 mmol/L (137-145); Total Bilirubin 0.8 mg/dL (0.2-1.3); Total Protein 7.2 g/dL (6.3-8.2)
[2020-04-29 23:08] LABS: Potassium 5.1 mmol/L (3.5-5.1)
[2020-04-29 23:19] LABS: INR 0.9 (<1.2); Partial Thromboplastin Time 23.8 sec (22.0-30.0); Prothrombin Time 10.2 sec (9.0-12.0)
--- NOTE | 2020-04-29 23:19 | CT ---
EXAMINATION TYPE: CT angio chest DATE OF EXAM: 04/29/2020 COMPARISON: None HISTORY: pain CT DLP: 1010.3 mGycm Automated exposure control for dose reduction was used. CONTRAST: Performed with IV Contrast, patient injected with 100 mL of Isovue 370. There are 3-D post processed images. There is some mild increased interstitial density in both lungs. There is no pulmonary consolidation. There is no evidence of a pulmonary mass. There is no pleural effusion. Heart size is normal. There is no pericardial effusion. Upper abdominal soft tissues are intact. There are no hilar masses. There is no mediastinal adenopathy. Thoracic aorta is intact. There is no aneurysm or dissection. I see no filling defects in the pulmonary arteries. Thoracic spine is intact. The ribs appear intact. IMPRESSION: No evidence of pulmonary embolism. Minimal pulmonary interstitial infiltrates. No suspicious pulmonary mass.
[2020-04-30 02:37] VITALS: BP 135/89; PULSE 60; RESP 16
== END 2020-04-30 02:30 | disposition home or self-care (01) ==
LOC: EC 22:08
DX: R07.2 Precordial pain (principal); I10 Essential (primary) hypertension; F41.9 Anxiety disorder, unspecified; F17.200 Nicotine dependence, unspecified, uncomplicated; Z79.899 Other long term (current) drug therapy; Z88.5 Allergy status to narcotic agent; Z88.0 Allergy status to penicillin
CPT/HCPCS: 36415; 93005; 83880; 80053; 84443; 83690; 83735; 84484; 85025; 85610; 85730; 71275; 99285; 96360; Q9967

== ENCOUNTER 2020-05-28 02:29 | Emergency (ER) | payer OTHER ==
[2020-05-28 02:36] VITALS: TEMP 98.8
--- NOTE | 2020-05-28 02:40 | ED ---
Chest Pain HPI - General Chief Complaint: Arrhythmia/Palpitations Stated Complaint: Hypertension Time Seen by Provider: 05/28/20 02:30 Source: patient, EMS, RN notes reviewed, old records reviewed Mode of arrival: ambulatory Limitations: no limitations - History of Present Illness Initial Comments: This is a 44-year-old male DF for evaluation. Patient presents today for evaluation regards to palpitations and significant shortness of breath disparate arrival with chest pain. Patient becomes severely anxious his this is not the first time patient has had this issue. Patient does have history of high blood pressure states is very concerned over significant swelling some blood pressure from [place]. Complaint: chest pain, other (Shortness of breath anxiety and changing blood pressure) -: unknown (Multiple issues of similar complaint) Onset: during rest, awoke with symptoms Pain Radiation: none Severity: moderate Severity scale (1-10): 4 Quality: tightness, aching, heaviness Consistency: constant Improves With: nothing Worsens With: nothing Anginal Symptoms: nausea, diaphoresis, dyspnea Other Symptoms: acid taste in mouth, palpitations Treatments Prior to Arrival: none - Related Data Home Medications Medication Instructions Recorded Confirmed Diazepam 10 mg PO DAILY 08/13/15 04/29/20 atenoloL [Atenolol] 50 mg PO BID 08/13/15 04/29/20 Albuterol Sulfate [Ventolin HFA] 2 puff INHALATION RT-QID PRN 04/29/20 04/29/20 Multivitamin [Multivitamins Adult 1 tab PO DAILY 04/29/20 04/29/20 Gummies] Tiotropium 18 Mcg/Puff [Spiriva] 1 puff INHALATION RT-DAILY 04/29/20 04/29/20 Umeclidinium [place] [Incruse 1 puff INHALATION RT-DAILY 04/29/20 04/29/20 Ellipta] Allergies Allergy/AdvReac Type Severity Reaction Status Date / Time codeine Allergy Hallucinati Verified 04/29/20 22:43 ons Penicillins Allergy Rash/Hives Verified 04/29/20 22:43 Review of Systems ROS Statement: Those systems with pertinent positive or pertinent negative responses have been documented in the HPI. ROS Other: All systems not noted in ROS Statement are negative. EKG Findings - EKG Comments: EKG Findings:: EKG shows nst 86 FL 134 QRS 88 QTc 442 Past Medical History Past Medical History: Hypertension History of Any Multi-Drug Resistant Organisms: None Reported Past Surgical History: Hernia Repair Past Psychological History: Anxiety Smoking Status: Former smoker, Vaper Past Alcohol Use History: None Reported Past Drug Use History: None Reported General Exam Limitations: no limitations General appearance: alert, in no apparent distress Head exam: Present: atraumatic, normocephalic, normal inspection Eye exam: Present: normal appearance, PERRL, EOMI. Absent: scleral icterus, conjunctival injection, periorbital swelling ENT exam: Present: normal exam, mucous membranes moist Neck exam: Present: normal inspection. Absent: tenderness, meningismus, lymphadenopathy Respiratory exam: Present: normal lung sounds bilaterally. Absent: respiratory distress, wheezes, rales, rhonchi, stridor Cardiovascular Exam: Present: regular rate, normal rhythm, normal heart sounds. Absent: systolic murmur, diastolic murmur, rubs, gallop, clicks GI/Abdominal exam: Present: soft, normal bowel sounds. Absent: distended, tenderness, guarding, rebound, rigid Extremities exam: Present: normal inspection, full ROM, normal capillary refill. Absent: tenderness, pedal edema, joint swelling, calf tenderness Back exam: Present: normal inspection Neurological exam: Present: alert, oriented X3, CN II-XII intact Psychiatric exam: Present: normal affect, normal mood Skin exam: Present: warm, dry, intact, normal color. Absent: rash Course Vital Signs 05/28/20 05/28/20 05/28/20 02:33 02:36 05:23 Temperature 98.8 F Pulse Rate 90 66 Pulse Rate [ 87 Lapel Baster ] Respiratory 18 16 Rate Blood Pressure 127/86 112/76 O2 Sat by Pulse 100 96 Oximetry - Reevaluation(s) Reevaluation #1: Medical record is reviewed Patient symptoms are improved and remained resolved here in the ER Patient spoke with at length, no acute distress Patient feels good for discharge home Chest Pain MDM - MDM 44 male to the ER for evaluation patient presents today for evaluation regards to significant episode of blood pressure changes shortness of breath cough and congestion. Patient will be discharged home to continue follow-up as an outpatient Disposition Clinical Impression: Chest pain, Palpitations, Hypertension Disposition: HOME SELF-CARE Condition: Good Instructions (If sedation given, give patient instructions): Heart Palpitations (ED), Hypertension (ED) Is patient prescribed a controlled substance at d/c from ED?: No Referrals: Judith Rodriguez MD [Primary Care Provider] - 1-2 days
[2020-05-28 02:49] LABS: Glucose,Whole Blood 125 mg/dL (75-99)
[2020-05-28 02:58] LABS: HCT 45.9 % (39.0-53.0); HGB 16.2 gm/dL (13.0-17.5); MCH 31.6 pg (25.0-35.0); MCHC 35.2 g/dL (31.0-37.0); MCV 89.9 fL (80.0-100.0); Platelet Count 270 k/uL (150-450); RBC 5.11 m/uL (4.30-5.90); RDW 12.8 % (11.5-15.5)
[2020-05-28 02:59] LABS: Basophils # (A) 0.1 k/uL (0-0.2); Basophils % (A) 1 %; Eosinophils # (A) 0.5 k/uL (0-0.7); Eosinophils % (A) 5 %; Lymphocytes # (A) 3.6 k/uL (1.0-4.8); Lymphocytes % (A) 36 %; Mean Platelet Volume 7.1; Monocytes # (A) 0.5 k/uL (0-1.0); Monocytes % (A) 5 %; Neutrophils # (A) 5.2 k/uL (1.3-7.7); Neutrophils % (A) 52 %
[2020-05-28 03:09] LABS: ALT 35 U/L (4-49); AST 30 U/L (17-59); African American GFR (CKD) >90 (>60 ml/min/1.73 sqM); Alkaline Phosphatase 78 U/L (38-126); Anion Gap 11 mmol/L; Blood Urea Nitrogen 16 mg/dL (9-20); Calcium 9.1 mg/dL (8.4-10.2); Carbon Dioxide 20 mmol/L (22-30); Chloride 105 mmol/L (98-107); Creatine Kinase 159 U/L (55-170); Glucose 129 mg/dL (74-99); Lipase 117 U/L (23-300); Magnesium 1.9 mg/dL (1.6-2.3); Non-African American GFR(CKD) >90 (>60 ml/min/1.73 sqM); Potassium 3.7 mmol/L (3.5-5.1); Sodium 136 mmol/L (137-145); Total Bilirubin 0.5 mg/dL (0.2-1.3); Total Protein 6.5 g/dL (6.3-8.2)
--- NOTE | 2020-05-28 03:12 | XR ---
EXAM: XR Chest, 2 Views CLINICAL HISTORY: ITS.REASON XR Reason: Chest Pain TECHNIQUE: Frontal and lateral views of the chest. COMPARISON: March 17, 2019 FINDINGS: Lungs: Unremarkable. No consolidation. Pleural space: Unremarkable. No pneumothorax. Heart: Unremarkable. No cardiomegaly. Mediastinum: Unremarkable. Bones/joints: There is mild osteophytosis in the lower thoracic spine. IMPRESSION: No acute findings in the chest.
[2020-05-28 03:16] LABS: INR 0.9 (<1.2); Partial Thromboplastin Time 23.4 sec (22.0-30.0); Prothrombin Time 10.2 sec (9.0-12.0)
[2020-05-28 04:58] LABS: Appearance,Urine Clear (Clear); Bilirubin,Urine Negative (Negative); Blood,Urine Negative (Negative); Color,Urine Yellow; Glucose,Urine (UA) Negative (Negative); Ketones,Urine Negative (Negative); Leukocyte Esterase,Urine Negative (Negative); Nitrite,Urine Negative (Negative); PH, Urine 5.5 (5.0-8.0); Protein,Urine Negative (Negative); Specific Gravity,Urine 1.015 (1.001-1.035); Urobilinogen,Urine <2.0 mg/dL (<2.0)
[2020-05-28 05:08] LABS: Amphetamine Screen,Urine Not Detected (NotDetected); Barbiturate Screen,Urine Not Detected (NotDetected); Benzodiazepines Screen,Urine Detected (NotDetected); Cocaine Screen,Urine Not Detected (NotDetected); Methadone Screen, Urine Not Detected (NotDetected); Opiate Screen,Urine Not Detected (NotDetected); Oxycodone Screen, Urine Not Detected (NotDetected); Phencyclidine Screen,Urine Not Detected (NotDetected); Tricyclic Antidepressant,Urine Not Detected (NotDetected); Urn Cannabinoid Scrn Not Detected (NotDetected)
[2020-05-28 05:24] VITALS: BP 112/76; PULSE 66; RESP 16
== END 2020-05-28 05:24 | disposition home or self-care (01) ==
LOC: EC 02:29
DX: R07.89 Other chest pain (principal); I10 Essential (primary) hypertension; R00.2 Palpitations; R11.0 Nausea; R61 Generalized hyperhidrosis; R05 Cough; R09.89 Other specified symptoms and signs involving the circulatory and respiratory systems; R43.8 Other disturbances of smell and taste; Z79.899 Other long term (current) drug therapy; Z88.5 Allergy status to narcotic agent; Z88.0 Allergy status to penicillin; F41.9 Anxiety disorder, unspecified; Z87.891 Personal history of nicotine dependence; Z98.890 Other specified postprocedural states
CPT/HCPCS: 36415; 71046; 80053; 80306; 81003; 82550; 83690; 83735; 83880; 84484; 85025; 85610; 85730; 93005; 99285

== ENCOUNTER 2020-06-10 21:47 | Emergency (ER) | payer OTHER ==
[2020-06-10 22:11] VITALS: BP 134/81; PULSE 77; RESP 20; TEMP 98
--- NOTE | 2020-06-10 22:31 | ED ---
ENT HPI <Shakeel Rosales - Last Filed: 06/10/20 22:58> - General Source: patient, RN notes reviewed Mode of arrival: ambulatory Limitations: no limitations - History of Present Illness MD complaint: tooth pain (upper left molars #14, #15) -: days(s) (2) 1 - cracked with purulent drainage, no abscesses Severity: severe Severity scale (1-10): 9 Quality: aching Consistency: constant Improves with: none Worsens with: eating, movement Context- Dental: history of dental caries, poor dental care (states for several years has had teeth breaking and falling out, unable to tolerate local anesthesia for tooth repairs in past) <Shawn Hoffman - Last Filed: 06/10/20 23:02> - General Chief complaint: Dental/Oral Stated complaint: dental pain Time Seen by Provider: 06/10/20 22:14 - History of Present Illness Initial comments: 44-year-old white male patient comes to the emergency room with chronic dental caries, patient complaining of left upper tooth #15 fracture and painful for the past 2 days. Patient has seen dentists in the past who want to extract teeth with local anesthesia, patient states does not receive good enough anesthesia with local so has not gone back for extractions. Patient states he's been struggling for several years with chronic dental caries and tooth fractures. Patient states has only been using Tylenol for pain states unable to take NSAIDs and has a possible childhood ALLERGY to codeine but doesn't know what his react ion was. (Shawn Hoffman) - Related Data Home Medications Medication Instructions Recorded Confirmed Diazepam 10 mg PO DAILY 08/13/15 04/29/20 atenoloL [Atenolol] 50 mg PO BID 08/13/15 04/29/20 Albuterol Sulfate [Ventolin HFA] 2 puff INHALATION RT-QID PRN 04/29/20 04/29/20 Multivitamin [Multivitamins Adult 1 tab PO DAILY 04/29/20 04/29/20 Gummies] Tiotropium 18 Mcg/Puff [Spiriva] 1 puff INHALATION RT-DAILY 04/29/20 04/29/20 Umeclidinium [place] [Incruse 1 puff INHALATION RT-DAILY 04/29/20 04/29/20 Ellipta] Previous Rx's Medication Instructions Recorded Clindamycin HCl 450 mg PO Q8HR #90 cap 06/10/20 traMADol HCl [Ultram] 50 mg PO Q6H PRN #15 tab 06/10/20 Allergies Allergy/AdvReac Type Severity Reaction Status Date / Time codeine Allergy Hallucinati Verified 06/10/20 22:11 ons Penicillins Allergy Rash/Hives Verified 06/10/20 22:11 Review of Systems ROS Other: All systems not noted in ROS Statement are negative. <Shakeel Rosales - Last Filed: 06/10/20 22:58> ROS Other: All systems not noted in ROS Statement are negative. <Shawn Hoffman - Last Filed: 06/10/20 23:02> ROS Statement: Those systems with pertinent positive or pertinent negative responses have been documented in the HPI. Past Medical History Past Medical History: Hypertension History of Any Multi-Drug Resistant Organisms: None Reported Past Surgical History: Hernia Repair Past Psychological History: Anxiety Smoking Status: Former smoker, Vaper Past Alcohol Use History: None Reported Past Drug Use History: None Reported <Shawn Hoffman - Last Filed: 06/10/20 23:02> General Exam Limitations: no limitations General appearance: alert, in no apparent distress Head exam: Present: atraumatic, normocephalic, normal inspection Eye exam: Present: normal appearance, PERRL, EOMI. Absent: scleral icterus, conjunctival injection, periorbital swelling ENT exam: Present: mucous membranes moist Expanded Mouth exam: Present: normal external inspection Teeth exam: Present: dental caries, fractured tooth # (15), dental tenderness #, gingival enlargement (multiple missing, fractured teeth, extensive dental caries throughout) Throat exam: normal inspection. negative: tonsillar erythema, tonsillar exudate, R peritonsillar mass, L peritonsillar mass Neck exam: Present: normal inspection, full ROM. Absent: tenderness, meningismus, lymphadenopathy Respiratory exam: Present: normal lung sounds bilaterally. Absent: respiratory distress, wheezes, rales, rhonchi, stridor Cardiovascular Exam: Present: regular rate GI/Abdominal exam: Present: soft Extremities exam: Present: normal inspection, normal capillary refill Neurological exam: Present: alert, oriented X3, CN II-XII intact Psychiatric exam: Present: normal affect, normal mood Skin exam: Present: warm, dry, intact, normal color. Absent: rash <Shawn Hoffman - Last Filed: 06/10/20 23:02> Course Vital Signs 06/10/20 22:09 Temperature 98.0 F Pulse Rate 77 Respiratory 20 Rate Blood Pressure 134/81 O2 Sat by Pulse 98 Oximetry Medical Decision Making <Shawn Hoffman - Last Filed: 06/10/20 23:02> - Medical Decision Making Patient vital signs stable, temperature 98.0 heart rate 77 Mr. rate 20 oxygen 98% on room air blood pressure 134/81. Case discussed with Dr. Rosales, Patient will be prescribed clindamycin and tramadol and directed to return if any signs of allergic reaction. (Shawn Hoffman) Disposition <Shakeel Rosales - Last Filed: 06/10/20 22:58> Is patient prescribed a controlled substance at d/c from ED?: Yes Time of Disposition: 22:57 <Shawn Hoffman - Last Filed: 06/10/20 23:02> Clinical Impression: Dental caries, Fracture of tooth, Toothache Disposition: HOME SELF-CARE Condition: Good Instructions (If sedation given, give patient instructions): Dental Abscess (ED), Toothache (ED) Additional Instructions: Follow-up with dentist or dental clinic next week take medication as prescribed. Prescriptions: Clindamycin HCl 450 mg PO Q8HR #90 cap traMADol HCl [Ultram] 50 mg PO Q6H PRN #15 tab PRN Reason: Pain Referrals: Judith Rodriguez MD [Primary Care Provider] - 1-2 days
[2020-06-10] MEDS ORDERED: traMADol 50 MG STARTER PACK 3 TAB BTL PO STA (23:15)
== END 2020-06-10 23:20 | disposition home or self-care (01) ==
LOC: EC 21:47
DX: S02.5XXA Fracture of tooth (traumatic), initial encounter for closed fracture (principal); K02.9 Dental caries, unspecified; F41.9 Anxiety disorder, unspecified; I10 Essential (primary) hypertension; F17.290 Nicotine dependence, other tobacco product, uncomplicated; X58.XXXA Exposure to other specified factors, initial encounter
CPT/HCPCS: 99282

== ENCOUNTER 2020-06-24 23:12 | Emergency (ER) | payer OTHER ==
[2020-06-24 23:18] VITALS: TEMP 98.8
[2020-06-24] MEDS ORDERED: SODIUM CHLORIDE 0.9% 1,000 ML IV STA (23:41)
--- NOTE | 2020-06-24 23:42 | ED ---
Recheck HPI - General Chief Complaint: Arrhythmia/Palpitations Stated Complaint: palpitations Time Seen by Provider: 06/24/20 23:19 Source: patient, EMS, RN notes reviewed, old records reviewed Mode of arrival: EMS Limitations: no limitations - History of Present Illness Initial Comments: This is a 44-year-old male well-known to this emergency department for similar symptoms presenting with today. Patient near syncopal event elevated blood pressure and some anxiety. Patient does suffer from again the symptoms chronically. Patient more frustrated with the fact that he has is recurrent symptoms here tonight. Patient is without complaint currently thinks he may have coronavirus. Patient has no recent change in medications, no current complaints MD Complaint: other (Concern for coronavirus, recurrent palpitations elevated blood pressure and near syncopal event) -: minutes(s) Returns Today for: other (Patient has continued persistent sporadic symptoms) Symptoms Since Prior Visit: no new symptoms Context: other (none) Associated Symptoms: shortness of breath Treatments Prior to Arrival: other (none) - Related Data Home Medications Medication Instructions Recorded Confirmed Diazepam 10 mg PO DAILY 08/13/15 04/29/20 atenoloL [Atenolol] 50 mg PO BID 08/13/15 04/29/20 Albuterol Sulfate [Ventolin HFA] 2 puff INHALATION RT-QID PRN 04/29/20 04/29/20 Multivitamin [Multivitamins Adult 1 tab PO DAILY 04/29/20 04/29/20 Gummies] Tiotropium 18 Mcg/Puff [Spiriva] 1 puff INHALATION RT-DAILY 04/29/20 04/29/20 Umeclidinium [place] [Incruse 1 puff INHALATION RT-DAILY 04/29/20 04/29/20 Ellipta] Previous Rx's Medication Instructions Recorded Clindamycin HCl 450 mg PO Q8HR #90 cap 06/10/20 traMADol HCl [Ultram] 50 mg PO Q6H PRN #15 tab 06/10/20 Allergies Allergy/AdvReac Type Severity Reaction Status Date / Time codeine Allergy Hallucinati Verified 06/24/20 23:18 ons Penicillins Allergy Rash/Hives Verified 06/24/20 23:18 Review of Systems ROS Statement: Those systems with pertinent positive or pertinent negative responses have been documented in the HPI. ROS Other: All systems not noted in ROS Statement are negative. Past Medical History Past Medical History: Hypertension History of Any Multi-Drug Resistant Organisms: None Reported Past Surgical History: Hernia Repair Past Psychological History: Anxiety Smoking Status: Former smoker, Vaper Past Alcohol Use History: None Reported Past Drug Use History: None Reported General Exam Limitations: no limitations General appearance: alert, in no apparent distress Head exam: Present: atraumatic, normocephalic, normal inspection Eye exam: Present: normal appearance, PERRL, EOMI. Absent: scleral icterus, conjunctival injection, periorbital swelling ENT exam: Present: normal exam, mucous membranes moist Neck exam: Present: normal inspection. Absent: tenderness, meningismus, lymphadenopathy Respiratory exam: Present: normal lung sounds bilaterally. Absent: respiratory distress, wheezes, rales, rhonchi, stridor Cardiovascular Exam: Present: regular rate, normal rhythm, normal heart sounds. Absent: systolic murmur, diastolic murmur, rubs, gallop, clicks GI/Abdominal exam: Present: soft, normal bowel sounds. Absent: distended, tenderness, guarding, rebound, rigid Extremities exam: Present: normal inspection, full ROM, normal capillary refill. Absent: tenderness, pedal edema, joint swelling, calf tenderness Back exam: Present: normal inspection Neurological exam: Present: alert, oriented X3, CN II-XII intact Psychiatric exam: Present: normal affect, normal mood Skin exam: Present: warm, dry, intact, normal color. Absent: rash Course Vital Signs 06/24/20 06/25/20 23:15 01:18 Temperature 98.8 F Pulse Rate 77 72 Respiratory 18 16 Rate Blood Pressure 125/85 112/75 O2 Sat by Pulse 96 96 Oximetry - Reevaluation(s) Reevaluation #1: 06/25/20 01:42 Medical record is reviewed Reevaluation #2: 06/25/20 01:42 Patient remains without complaint, no recurrent episodes Reevaluation #3: 06/25/20 01:43 Patient is informed of results and questions have been answered Medical Decision Making - Medical Decision Making 44 male DF for evaluation patient has near syncopal event palpitations and impending doom symptoms. No acute cause found patient can be discharged home - Lab Data Result diagrams: 06/24/20 23:41 06/24/20 23:41 Lab Results 06/24/20 06/24/2021 Range/Units 23:41 23:41 23:41 WBC 10.7 H (3.8-10.6) k/uL RBC 5.28 (4.30-5.90) m/uL Hgb 16.6 (13.0-17.5) gm/dL Hct 47.4 (39.0-53.0) % MCV 89.8 (80.0-100.0) fL MCH 31.4 (25.0-35.0) pg MCHC 35.0 (31.0-37.0) g/dL RDW 12.8 (11.5-15.5) % Plt Count 312 (150-450) k/uL MPV 7.4 Neutrophils % 86 % Lymphocytes % 11 % Monocytes % 2 % Eosinophils % 0 % Basophils % 1 % Neutrophils # 9.2 H (1.3-7.7) k/uL Lymphocytes # 1.2 (1.0-4.8) k/uL Monocytes # 0.2 (0-1.0) k/uL Eosinophils # 0.0 (0-0.7) k/uL Basophils # 0.1 (0-0.2) k/uL Sodium 136 L (137-145) mmol/L Potassium 4.7 (3.5-5.1) mmol/L Chloride 105 (98-107) mmol/L Carbon Dioxide 24 (22-30) mmol/L Anion Gap 7 mmol/L BUN 14 (9-20) mg/dL Creatinine 0.92 (0.66-1.25) mg/dL Est GFR (CKD-EPI)AfAm >90 (>60 ml/min/1.73 sqM) Est GFR (CKD-EPI)NonAf >90 (>60 ml/min/1.73 sqM) Glucose 116 H (74-99) mg/dL Calcium 9.8 (8.4-10.2) mg/dL Magnesium 2.2 (1.6-2.3) mg/dL Total Bilirubin 0.5 (0.2-1.3) mg/dL AST 32 (17-59) U/L ALT 35 (4-49) U/L Alkaline Phosphatase 97 (38-126) U/L Lactate Dehydrogenase 422 (313-618) U/L C-Reactive Protein 9.2 (<10.0) mg/L Total Protein 7.4 (6.3-8.2) g/dL Albumin 4.4 (3.5-5.0) g/dL Coronavirus (PCR) Not Detected (Not Detectd) - Radiology Data Radiology results: report reviewed (Chest x-rays negative for acute disease), image reviewed Disposition Clinical Impression: Palpitations, Near syncope Disposition: HOME SELF-CARE Condition: Good Instructions (If sedation given, give patient instructions): Heart Palpitations (ED) Is patient prescribed a controlled substance at d/c from ED?: No Referrals: Judith Rodriguez MD [Primary Care Provider] - 1-2 days
--- NOTE | 2020-06-25 00:11 | XR ---
EXAMINATION TYPE: XR chest 1V portable DATE OF EXAM: 06/24/2020 COMPARISON: 05/28/2020 HISTORY: Covid pneumonia. TECHNIQUE: Single view FINDINGS: There is slight increased interstitial density. There is no pulmonary consolidation. Heart size is normal. There are no hilar masses. There is some mild increased density at the left cardiac b order. This could be some infiltrate or atelectasis in the lingula left upper lobe. IMPRESSION: There is evidence for some new mild lingula infiltrate or atelectasis. Normal heart. No p ulmonary consolidation in the other lung [place].
[2020-06-25 00:57] LABS: Basophils # (A) 0.1 k/uL (0-0.2); Basophils % (A) 1 %; Eosinophils % (A) 0 %; HCT 47.4 % (39.0-53.0); HGB 16.6 gm/dL (13.0-17.5); Lymphocytes # (A) 1.2 k/uL (1.0-4.8); Lymphocytes % (A) 11 %; MCH 31.4 pg (25.0-35.0); MCV 89.8 fL (80.0-100.0); Mean Platelet Volume 7.4; Monocytes # (A) 0.2 k/uL (0-1.0); Monocytes % (A) 2 %; Neutrophils # (A) 9.2 k/uL (1.3-7.7); Neutrophils % (A) 86 %; Platelet Count 312 k/uL (150-450); RBC 5.28 m/uL (4.30-5.90); RDW 12.8 % (11.5-15.5); WBC 10.7 k/uL (3.8-10.6)
[2020-06-25 01:20] LABS: ALT 35 U/L (4-49); AST 32 U/L (17-59); African American GFR (CKD) >90 (>60 ml/min/1.73 sqM); Albumin 4.4 g/dL (3.5-5.0); Alkaline Phosphatase 97 U/L (38-126); Anion Gap 7 mmol/L; Blood Urea Nitrogen 14 mg/dL (9-20); C Reactive Protein 9.2 mg/L (<10.0); Calcium 9.8 mg/dL (8.4-10.2); Carbon Dioxide 24 mmol/L (22-30); Chloride 105 mmol/L (98-107); Glucose 116 mg/dL (74-99); LDH 422 U/L (313-618); Magnesium 2.2 mg/dL (1.6-2.3); Non-African American GFR(CKD) >90 (>60 ml/min/1.73 sqM); Potassium 4.7 mmol/L (3.5-5.1); Sodium 136 mmol/L (137-145); Total Bilirubin 0.5 mg/dL (0.2-1.3); Total Protein 7.4 g/dL (6.3-8.2)
[2020-06-25 01:55] VITALS: BP 120/81; PULSE 75; RESP 18
== END 2020-06-25 01:55 | disposition home or self-care (01) ==
LOC: EC 23:12
DX: R00.2 Palpitations (principal); R55 Syncope and collapse; I10 Essential (primary) hypertension; Z20.822 Contact with and (suspected) exposure to COVID-19; Z79.899 Other long term (current) drug therapy; Z87.891 Personal history of nicotine dependence; Z88.0 Allergy status to penicillin; Z88.5 Allergy status to narcotic agent
CPT/HCPCS: 36415; 71045; 80053; 82533; 83615; 83735; 84443; 85025; 86140; 87635; 96360; 99285

== ENCOUNTER → 2021-03-23 | Outpatient (CLI) | payer OTHER ==
--- NOTE | 2021-03-24 09:20 | XR ---
EXAMINATION TYPE: XR chest 2V DATE OF EXAM: 03/23/2021 COMPARISON: 06/24/2020 HISTORY: 45-year-old male shortness of breath TECHNIQUE: Frontal and lateral views FINDINGS: Heart normal size. Stable focal density left cardiophrenic junction, likely epicardial fat pad. Hyper inflation. Hazy lower lung densities related to overlying soft tissue. No consolidation or pleural ef fusion. IMPRESSION: Stable density along the left cardiophrenic angle, likely prominent epicardial fat pad. Background CO PD. No acute process seen.
== END | disposition home or self-care (01) ==
LOC: RADXRMAIN 17:21
PROVIDERS: ATTEND Internal Medicine
DX: R06.02 Shortness of breath (principal)
CPT/HCPCS: 71046

== ENCOUNTER 2021-06-17 16:27 | Emergency (ER) | payer OTHER ==
[2021-06-17 16:43] VITALS: RESP 16
[2021-06-17 17:21] LABS: Glucose,Whole Blood 116 mg/dL (75-99)
[2021-06-17] MEDS ORDERED: SODIUM CHLORIDE 0.9% 1,000 ML IV ONE (17:43)
[2021-06-17 18:04] LABS: Basophils # (A) 0.2 k/uL (0-0.2); Basophils % (A) 1 %; Eosinophils # (A) 0.3 k/uL (0-0.7); Eosinophils % (A) 2 %; HCT 51.9 % (39.0-53.0); HGB 17.5 gm/dL (13.0-17.5); Lymphocytes # (A) 1.9 k/uL (1.0-4.8); Lymphocytes % (A) 16 %; MCH 30.9 pg (25.0-35.0); MCHC 33.7 g/dL (31.0-37.0); MCV 91.8 fL (80.0-100.0); Mean Platelet Volume 7.4; Monocytes # (A) 0.6 k/uL (0-1.0); Monocytes % (A) 5 %; Neutrophils # (A) 8.8 k/uL (1.3-7.7); Neutrophils % (A) 74 %; Platelet Count 319 k/uL (150-450); RBC 5.66 m/uL (4.30-5.90); RDW 12.6 % (11.5-15.5)
[2021-06-17 18:17] LABS: ALT 41 U/L (4-49); AST 31 U/L (17-59); African American GFR (CKD) >90 (>60 ml/min/1.73 sqM); Albumin 4.3 g/dL (3.5-5.0); Alkaline Phosphatase 95 U/L (38-126); Anion Gap 8 mmol/L; Blood Urea Nitrogen 7 mg/dL (9-20); Calcium 9.2 mg/dL (8.4-10.2); Carbon Dioxide 24 mmol/L (22-30); Chloride 105 mmol/L (98-107); Glucose 102 mg/dL (74-99); Non-African American GFR(CKD) >90 (>60 ml/min/1.73 sqM); Potassium 4.8 mmol/L (3.5-5.1); Sodium 137 mmol/L (137-145); Total Bilirubin 0.8 mg/dL (0.2-1.3); Total Protein 7.4 g/dL (6.3-8.2)
--- NOTE | 2021-06-17 19:12 | CT ---
EXAMINATION TYPE: CT soft tissue neck w con DATE OF EXAM: 06/17/2021 6:21 PM COMPARISON: None HISTORY: Throat swelling, bad dentition. CT DLP: 516.7 mGycm Automated exposure control for dose reduction was used. CONTRAST: CT scan of the neck is performed following with IV Contrast, patient injected with 100 mL of Isovue 3 00. Axial images are obtained, coronal and sagittal reformatted images are reviewed. FINDINGS: Borderline enlarged submandibular node is present on the right likely inflammatory. Periapi steve abscess suspected along the right mandible, bilateral maxilla Airway: No gross abnormality seen. Epiglottis shows a normal appearance. Level of the true and false cords is unremarkable. Parotid/submandibular glands: No gross abnormality seen. Carotid/Vascular Structures: Normal Osseous Structures: degenerative disc changes are present in the visualized spine. Other: Minimal inflammatory change present in the left maxillary sinus, skull base is normal. IMPRESSION: Mild sinus disease. Degenerative disc disease. Lymphadenopathy may be secondary to peria pical abscesses.
[2021-06-17] MEDS ORDERED: diazePAM 5 MG TAB PO STA (19:33)
[2021-06-17] MEDS ORDERED: CLINDAMYCIN 150 MG CAP PO STA (19:36)
[2021-06-17 19:43] VITALS: BP 100/67; PULSE 78; TEMP 98.2
--- NOTE | 2021-06-17 20:11 | ED ---
General Adult HPI - General Chief complaint: Dizziness Stated complaint: Sore throat Time Seen by Provider: 06/17/21 16:46 Source: patient, EMS Mode of arrival: EMS Limitations: no limitations - History of Present Illness Initial comments: 45-year-old male who presents emergency Department with complaints of sore throat, dental ache, throat swelling, high blood pressure and dry mouth. Patient has very poor dentition and does not see a dentist. States that he has had chronic dental pain however has become worse over the past couple of days. States the point where he feels nauseated, lightheaded and patient had a palpable lump in his throat last night. He denies any shortness of breath or chest pain. Patient currently on any antibiotics. He also reports to me that he is off of several of his home medications as he has been unable to obtain refills from Dr. Rodriguez's office. Denies headache or fevers. No sick contacts with similar symptoms. No abdominal pain. Denies any changes in his bowel or bladder habits. No other alleviating, precipitating or mopping factors - Related Data Home Medications Medication Instructions Recorded Confirmed Albuterol Sulfate [Proair Hfa] 2 puff INHALATION RT-QID PRN 06/20/21 06/20/21 Ergocalciferol [Vitamin D2 (1250 1,250 mcg PO MO 06/20/21 06/20/21 Mcg = 02980 Iu)] Pantoprazole [Protonix] 40 mg PO DAILY 06/20/21 06/20/21 Previous Rx's Medication Instructions Recorded Clindamycin HCl 300 mg PO Q6HR #40 cap 06/17/21 atenoloL [Tenormin] 25 mg PO BID #28 tab 06/17/21 diazePAM [Valium] 5 mg PO BID #6 tab 06/17/21 Diazepam [Valium] 10 mg PO Q8H PRN 3 Days #9 tab 06/22/21 Allergies Allergy/AdvReac Type Severity Reaction Status Date / Time Penicillins Allergy Rash/Hives Verified 06/20/21 20:22 codeine AdvReac Hallucinati Verified 06/20/21 20:22 ons hydroxyzine [From Vistaril] AdvReac Seizures Verified 06/20/21 20:27 Review of Systems ROS Statement: Those systems with pertinent positive or pertinent negative responses have been documented in the HPI. ROS Other: All systems not noted in ROS Statement are negative. Past Medical History Past Medical History: COPD, Hypertension, Seizure Disorder Additional Past Medical History / Comment(s): tooth abscess History of Any Multi-Drug Resistant Organisms: None Reported Past Surgical History: Hernia Repair Past Psychological History: Anxiety, Depression Smoking Status: Former smoker, Vaper Past Alcohol Use History: None Reported Past Drug Use History: None Reported General Exam Limitations: no limitations General appearance: alert, in no apparent distress Head exam: Present: atraumatic, normocephalic, normal inspection Eye exam: Present: normal appearance, PERRL, EOMI. Absent: scleral icterus, conjunctival injection, periorbital swelling ENT exam: Present: mucous membranes moist, TM's normal bilaterally, other (significant dental caries. Multiple teeth broken off at the gum. No identifiable drainable abscess) Neck exam: Present: normal inspection. Absent: tenderness, meningismus, lymphadenopathy Respiratory exam: Present: normal lung sounds bilaterally. Absent: respiratory distress, wheezes, rales, rhonchi, stridor Cardiovascular Exam: Present: regular rate, normal rhythm, normal heart sounds. Absent: systolic murmur, diastolic murmur, rubs, gallop, clicks GI/Abdominal exam: Present: soft, normal bowel sounds. Absent: distended, tenderness, guarding, rebound, rigid Extremities exam: Present: normal inspection, full ROM, normal capillary refill. Absent: tenderness, pedal edema, joint swelling, calf tenderness Back exam: Present: normal inspection Neurological exam: Present: alert, oriented X3, CN II-XII intact Psychiatric exam: Present: normal affect, normal mood Skin exam: Present: warm, dry, intact, normal color. Absent: rash Course Vital Signs 06/17/21 06/17/21 16:36 19:41 Temperature 98.2 F Pulse Rate 84 78 Respiratory 16 16 Rate Blood Pressure 108/77 100/67 O2 Sat by Pulse 96 96 Oximetry Medical Decision Making - Medical Decision Making Upon arrival the patient is placed into room 30. A thorough history and physical exam was performed. Patient has extremely poor dentition however no identifiable abscess to be drained. No concerning signs of Aleks angina. Patient does have palpable lymphadenopathy. Recommended laboratory studies. Patient swab for Covid and strep which are negative. He does have slight leukocytosis of 12. He is given a liter bolus of normal saline, 5 mg of Valium as he states he is out of this medication unable to obtain a refill. Also dosed clindamycin. He is sent over for a CT of his neck which does not identify any signs of Aleks angina. Does have lymphadenopathy. Patient will be started on clindamycin in the outpatient setting. Also given a short prescription for his Valium. Instructed to follow-up with his primary care doctor. Needs to see a dentist within 10 days for extraction. Return to the emergency room for any new or worsening symptoms. Patient agreed to the treatment plan was discharged home in stable condition - Lab Data Result diagrams: 06/17/21 17:44 06/17/21 17:44 Lab Results 06/17/21 06/17/21 06/17/21 Range/Units 17:19 17:44 17:44 WBC 12.0 H (3.8-10.6) k/uL RBC 5.66 (4.30-5.90) m/uL Hgb 17.5 (13.0-17.5) gm/dL Hct 51.9 (39.0-53.0) % MCV 91.8 (80.0-100.0) fL MCH 30.9 (25.0-35.0) pg MCHC 33.7 (31.0-37.0) g/dL RDW 12.6 (11.5-15.5) % Plt Count 319 (150-450) k/uL MPV 7.4 Neutrophils % 74 % Lymphocytes % 16 % Monocytes % 5 % Eosinophils % 2 % Basophils % 1 % Neutrophils # 8.8 H (1.3-7.7) k/uL Lymphocytes # 1.9 (1.0-4.8) k/uL Monocytes # 0.6 (0-1.0) k/uL Eosinophils # 0.3 (0-0.7) k/uL Basophils # 0.2 (0-0.2) k/uL Sodium 137 (137-145) mmol/L Potassium 4.8 (3.5-5.1) mmol/L Chloride 105 (98-107) mmol/L Carbon Dioxide 24 (22-30) mmol/L Anion Gap 8 mmol/L BUN 7 L (9-20) mg/dL Creatinine 0.81 (0.66-1.25) mg/dL Est GFR (CKD-EPI)AfAm >90 (>60 ml/min/1.73 sqM) Est GFR (CKD-EPI)NonAf >90 (>60 ml/min/1.73 sqM) Glucose 102 H (74-99) mg/dL POC Glucose (mg/dL) 116 H (75-99) mg/dL POC Glu [employer] ID [place] Calcium 9.2 (8.4-10.2) mg/dL Total Bilirubin 0.8 (0.2-1.3) mg/dL AST 31 (17-59) U/L ALT 41 (4-49) U/L Alkaline Phosphatase 95 (38-126) U/L Total Protein 7.4 (6.3-8.2) g/dL Albumin 4.3 (3.5-5.0) g/dL Coronavirus (PCR) (Not Detectd) Group A Strep Rapid (Negative) 06/17/21 06/17/21 Range/Units 17:52 17:52 WBC (3.8-10.6) k/uL RBC (4.30-5.90) m/uL Hgb (13.0-17.5) gm/dL Hct (39.0-53.0) % MCV (80.0-100.0) fL MCH (25.0-35.0) pg MCHC (31.0-37.0) g/dL RDW (11.5-15.5) % Plt Count (150-450) k/uL MPV Neutrophils % % Lymphocytes % % Monocytes % % Eosinophils % % Basophils % % Neutrophils # (1.3-7.7) k/uL Lymphocytes # (1.0-4.8) k/uL Monocytes # (0-1.0) k/uL Eosinophils # (0-0.7) k/uL Basophils # (0-0.2) k/uL Sodium (137-145) mmol/L Potassium (3.5-5.1) mmol/L Chloride (98-107) mmol/L Carbon Dioxide (22-30) mmol/L Anion Gap mmol/L BUN (9-20) mg/dL Creatinine (0.66-1.25) mg/dL Est GFR (CKD-EPI)AfAm (>60 ml/min/1.73 sqM) Est GFR (CKD-EPI)NonAf (>60 ml/min/1.73 sqM) Glucose (74-99) mg/dL POC Glucose (mg/dL) (75-99) mg/dL POC Glu [employer] ID Calcium (8.4-10.2) mg/dL Total Bilirubin (0.2-1.3) mg/dL AST (17-59) U/L ALT (4-49) U/L Alkaline Phosphatase (38-126) U/L Total Protein (6.3-8.2) g/dL Albumin (3.5-5.0) g/dL Coronavirus (PCR) Not Detected (Not Detectd) Group A Strep Rapid Negative (Negative) Disposition Clinical Impression: Dental caries, Lymphadenopathy Disposition: HOME SELF-CARE Condition: Stable Instructions (If sedation given, give patient instructions): Dental Abscess (ED) Additional Instructions: Please of follow-up with your dentist within 10 days. Take your prescription medications as directed and return to the emergency room for any new or worsening symptoms Prescriptions: Clindamycin HCl 300 mg PO Q6HR #40 cap atenoloL [Tenormin] 25 mg PO BID #28 tab diazePAM [Valium] 5 mg PO BID #6 tab Is patient prescribed a controlled substance at d/c from ED?: No Referrals: Judith Rodriguez MD [Primary Care Provider] - 1-2 days Time of Disposition: 20:10
== END 2021-06-17 20:32 | disposition home or self-care (01) ==
LOC: EC 16:27
DX: K02.9 Dental caries, unspecified (principal); R59.1 Generalized enlarged lymph nodes; J44.9 Chronic obstructive pulmonary disease, unspecified; I10 Essential (primary) hypertension; Z87.891 Personal history of nicotine dependence; Z20.822 Contact with and (suspected) exposure to COVID-19; Z88.8 Allergy status to other drugs, medicaments and biological substances; Z88.0 Allergy status to penicillin; Z88.5 Allergy status to narcotic agent
CPT/HCPCS: 99284; 36415; 80053; 85025; 87081; 87430; 87635; 70491; 96360; Q9967

== ENCOUNTER 2021-06-20 18:30 | Emergency (ER) | payer OTHER ==
[2021-06-20 18:43] VITALS: TEMP 97.9
--- NOTE | 2021-06-20 18:54 | ED ---
General Adult HPI - General Chief complaint: Chest Pain Stated complaint: anxiety, SOB Time Seen by Provider: 06/20/21 18:38 Source: patient, EMS Mode of arrival: EMS Limitations: no limitations - History of Present Illness Initial comments: Patient presents to the ED by ambulance for evaluation. Patient states that he was sitting at his computer about an hour prior to coming to the ED when he suddenly became dizzy/lightheaded and noticed that his pulse rate had dropped to the 50s. Patient states that he then moved over to his bed and his pulse rate improved to the 90s. Patient states that he has also had intermittent left- sided chest pain and mild dyspnea since his symptoms began. Patient states that he has a history of "hypertensive crisis", so he checks his blood pressure and pulse rate regularly. Patient denies trauma or injury, fever or chills, headache, focal numbness/weakness/neuro deficit, radiation of his chest pain, neck/arm/jaw/back pain, pleuritic pain, cough or cold symptoms, palpitations, syncope, abdominal pain, nausea/vomiting/diaphoresis, dysuria or urinary symptoms, decreased urine output, leg or calf swelling or pain, or any other symptoms or complaints. Patient denies illicit drug use. - Related Data Home Medications Medication Instructions Recorded Confirmed Albuterol Sulfate [Proair Hfa] 2 puff INHALATION RT-QID PRN 06/20/21 06/20/21 Ergocalciferol [Vitamin D2 (1250 1,250 mcg PO MO 06/20/21 06/20/21 Mcg = 77293 Iu)] Pantoprazole [Protonix] 40 mg PO DAILY 06/20/21 06/20/21 Previous Rx's Medication Instructions Recorded Clindamycin HCl 300 mg PO Q6HR #40 cap 06/17/21 atenoloL [Tenormin] 25 mg PO BID #28 tab 06/17/21 diazePAM [Valium] 5 mg PO BID #6 tab 06/17/21 Allergies Allergy/AdvReac Type Severity Reaction Status Date / Time Penicillins Allergy Rash/Hives Verified 06/20/21 20:22 codeine AdvReac Hallucinati Verified 06/20/21 20:22 ons hydroxyzine [From Vistaril] AdvReac Seizures Verified 06/20/21 20:27 Review of Systems ROS Statement: Those systems with pertinent positive or pertinent negative responses have been documented in the HPI. ROS Other: All systems not noted in ROS Statement are negative. Past Medical History Past Medical History: COPD, Hypertension, Seizure Disorder Additional Past Medical History / Comment(s): tooth abscess History of Any Multi-Drug Resistant Organisms: None Reported Past Surgical History: No Surgical Hx Reported, Hernia Repair Past Psychological History: Anxiety, Depression Smoking Status: Former smoker, Vaper Past Alcohol Use History: None Reported Past Drug Use History: None Reported General Exam Limitations: no limitations General appearance: alert, in no apparent distress Head exam: Present: atraumatic, normocephalic Eye exam: Present: normal appearance, EOMI ENT exam: Present: mucous membranes moist Neck exam: Present: other (Trachea is in midline) Respiratory exam: Present: normal lung sounds bilaterally. Absent: respiratory distress, wheezes, rales, rhonchi, stridor Cardiovascular Exam: Present: regular rate, normal rhythm, normal heart sounds, other (Normal radial pulses bilaterally) GI/Abdominal exam: Present: soft. Absent: distended, tenderness, guarding Extremities exam: Present: other (Negative Homans sign bilaterally). Absent: tenderness, pedal edema, calf tenderness Neurological exam: Present: alert, oriented X3. Absent: motor sensory deficit Psychiatric exam: Present: normal affect, normal mood Skin exam: Present: warm, dry, intact, normal color Course Vital Signs 06/20/21 06/20/21 06/20/21 18:35 18:45 20:04 Temperature 97.9 F Pulse Rate 78 72 Respiratory 20 18 18 Rate Blood Pressure 123/81 116/73 O2 Sat by Pulse 100 95 Oximetry 06/20/21 06/20/21 22:00 23:54 Temperature Pulse Rate 74 84 Respiratory 18 18 Rate Blood Pressure 124/84 123/71 O2 Sat by Pulse 95 95 Oximetry - Reevaluation(s) Reevaluation #1: 06/21/21 00:21 Patient denies development of any new symptoms while in the ED. Patient remains alert and breathing comfortably with a normal room air oxygen saturation. Patient is aware of his test results, and he feels comfortable being discharged home at this time. Patient was counseled about dizziness and chest pain, and he was clearly explained return and follow-up instructions. Patient was instructed to follow up closely with his primary care provider. Patient was also instructed to have a low threshold for return to the emergency department should his symptoms worsen. Patient feels comfortable with this plan. EKG Findings - EKG Comments: EKG Findings:: Normal sinus rhythm, ventricular rate of 77 bpm, no ectopy, normal NM and QRS intervals, normal QT interval, nonspecific ST abnormality, normal axis Medical Decision Making - Medical Decision Making Patient's EKG and chest x-ray are fairly unremarkable. Patient's labs are also fairly unremarkable, including 2 negative troponins drawn over 2 hours apart, as well as a normal d-dimer. Patient's vital signs are normal/reassuring, including a normal room air oxygen saturation. I am uncertain of the etiology of the patient's symptoms, but I do not suspect an emergent medical condition at this time. Will discharge patient home at this time. Patient feels comfortable this plan. - Lab Data Result diagrams: 06/20/21 19:25 06/20/21 19:25 Lab Results 06/20/21 06/20/21 06/20/21 Range/Units 19:25 19:25 19:25 WBC 9.3 (3.8-10.6) k/uL RBC 5.19 (4.30-5.90) m/uL Hgb 15.8 (13.0-17.5) gm/dL Hct 47.7 (39.0-53.0) % MCV 91.9 (80.0-100.0) fL MCH 30.3 (25.0-35.0) pg MCHC 33.0 (31.0-37.0) g/dL RDW 12.6 (11.5-15.5) % Plt Count 283 (150-450) k/uL MPV 7.6 Neutrophils % 58 % Lymphocytes % 29 % Monocytes % 5 % Eosinophils % 4 % Basophils % 1 % Neutrophils # 5.4 (1.3-7.7) k/uL Lymphocytes # 2.7 (1.0-4.8) k/uL Monocytes # 0.5 (0-1.0) k/uL Eosinophils # 0.4 (0-0.7) k/uL Basophils # 0.1 (0-0.2) k/uL PT 10.1 (9.0-12.0) sec INR 0.9 (<1.2) APTT 24.7 (22.0-30.0) sec D-Dimer (<0.60) mg/L FEU Sodium 137 (137-145) mmol/L Potassium 4.4 (3.5-5.1) mmol/L Chloride 108 H (98-107) mmol/L Carbon Dioxide 21 L (22-30) mmol/L Anion Gap 8 mmol/L BUN 10 (9-20) mg/dL Creatinine 0.85 (0.66-1.25) mg/dL Est GFR (CKD-EPI)AfAm >90 (>60 ml/min/1.73 sqM) Est GFR (CKD-EPI)NonAf >90 (>60 ml/min/1.73 sqM) Glucose 105 H (74-99) mg/dL Calcium 9.0 (8.4-10.2) mg/dL Magnesium 2.1 (1.6-2.3) mg/dL Total Bilirubin 0.9 (0.2-1.3) mg/dL AST 33 (17-59) U/L ALT 39 (4-49) U/L Alkaline Phosphatase 89 (38-126) U/L Troponin I (0.000-0.034) ng/mL NT-Pro-B Natriuret Pep pg/mL Total Protein 6.9 (6.3-8.2) g/dL Albumin 4.1 (3.5-5.0) g/dL 06/20/21 06/20/21 06/20/21 Range/Units 19:25 19:25 19:25 WBC (3.8-10.6) k/uL RBC (4.30-5.90) m/uL Hgb (13.0-17.5) gm/dL Hct (39.0-53.0) % MCV (80.0-100.0) fL MCH (25.0-35.0) pg MCHC (31.0-37.0) g/dL RDW (11.5-15.5) % Plt Count (150-450) k/uL MPV Neutrophils % % Lymphocytes % % Monocytes % % Eosinophils % % Basophils % % Neutrophils # (1.3-7.7) k/uL Lymphocytes # (1.0-4.8) k/uL Monocytes # (0-1.0) k/uL Eosinophils # (0-0.7) k/uL Basophils # (0-0.2) k/uL PT (9.0-12.0) sec INR (<1.2) APTT (22.0-30.0) sec D-Dimer 0.42 (<0.60) mg/L FEU Sodium (137-145) mmol/L Potassium (3.5-5.1) mmol/L Chloride (98-107) mmol/L Carbon Dioxide (22-30) mmol/L Anion Gap mmol/L BUN (9-20) mg/dL Creatinine (0.66-1.25) mg/dL Est GFR (CKD-EPI)AfAm (>60 ml/min/1.73 sqM) Est GFR (CKD-EPI)NonAf (>60 ml/min/1.73 sqM) Glucose (74-99) mg/dL Calcium (8.4-10.2) mg/dL Magnesium (1.6-2.3) mg/dL Total Bilirubin (0.2-1.3) mg/dL AST (17-59) U/L ALT (4-49) U/L Alkaline Phosphatase (38-126) U/L Troponin I <0.012 (0.000-0.034) ng/mL NT-Pro-B Natriuret Pep 63 pg/mL Total Protein (6.3-8.2) g/dL Albumin (3.5-5.0) g/dL 06/20/21 Range/Units 22:51 WBC (3.8-10.6) k/uL RBC (4.30-5.90) m/uL Hgb (13.0-17.5) gm/dL Hct (39.0-53.0) % MCV (80.0-100.0) fL MCH (25.0-35.0) pg MCHC (31.0-37.0) g/dL RDW (11.5-15.5) % Plt Count (150-450) k/uL MPV Neutrophils % % Lymphocytes % % Monocytes % % Eosinophils % % Basophils % % Neutrophils # (1.3-7.7) k/uL Lymphocytes # (1.0-4.8) k/uL Monocytes # (0-1.0) k/uL Eosinophils # (0-0.7) k/uL Basophils # (0-0.2) k/uL PT (9.0-12.0) sec INR (<1.2) APTT (22.0-30.0) sec D-Dimer (<0.60) mg/L FEU Sodium (137-145) mmol/L Potassium (3.5-5.1) mmol/L Chloride (98-107) mmol/L Carbon Dioxide (22-30) mmol/L Anion Gap mmol/L BUN (9-20) mg/dL Creatinine (0.66-1.25) mg/dL Est GFR (CKD-EPI)AfAm (>60 ml/min/1.73 sqM) Est GFR (CKD-EPI)NonAf (>60 ml/min/1.73 sqM) Glucose (74-99) mg/dL Calcium (8.4-10.2) mg/dL Magnesium (1.6-2.3) mg/dL Total Bilirubin (0.2-1.3) mg/dL AST (17-59) U/L ALT (4-49) U/L Alkaline Phosphatase (38-126) U/L Troponin I <0.012 (0.000-0.034) ng/mL NT-Pro-B Natriuret Pep pg/mL Total Protein (6.3-8.2) g/dL Albumin (3.5-5.0) g/dL - Radiology Data Chest x-ray: No acute cardiopulmonary disease/process. Disposition Clinical Impression: Chest pain, Dizziness Disposition: HOME SELF-CARE Condition: Stable Instructions (If sedation given, give patient instructions): Chest Pain (ED), Dizziness (ED) Additional Instructions: Return to the ER immediately should you develop new or worsening pain, increased shortness of breath, increased dizziness, fainting, a fever, vomiting, or new or worsening symptoms. Follow up closely with your primary care provider. Is patient prescribed a controlled substance at d/c from ED?: No Referrals: Judith Rodriguez MD [Primary Care Provider] - 1-2 days Time of Disposition: 00:25
[2021-06-20 18:59] VITALS: RESP 18
[2021-06-20 19:33] LABS: Basophils # (A) 0.1 k/uL (0-0.2); Basophils % (A) 1 %; Eosinophils # (A) 0.4 k/uL (0-0.7); Eosinophils % (A) 4 %; HCT 47.7 % (39.0-53.0); HGB 15.8 gm/dL (13.0-17.5); Lymphocytes # (A) 2.7 k/uL (1.0-4.8); Lymphocytes % (A) 29 %; MCH 30.3 pg (25.0-35.0); MCV 91.9 fL (80.0-100.0); Mean Platelet Volume 7.6; Monocytes # (A) 0.5 k/uL (0-1.0); Monocytes % (A) 5 %; Neutrophils # (A) 5.4 k/uL (1.3-7.7); Neutrophils % (A) 58 %; Platelet Count 283 k/uL (150-450); RBC 5.19 m/uL (4.30-5.90); RDW 12.6 % (11.5-15.5); WBC 9.3 k/uL (3.8-10.6)
[2021-06-20 19:42] LABS: INR 0.9 (<1.2); Partial Thromboplastin Time 24.7 sec (22.0-30.0); Prothrombin Time 10.1 sec (9.0-12.0)
[2021-06-20 19:45] LABS: ALT 39 U/L (4-49); AST 33 U/L (17-59); African American GFR (CKD) >90 (>60 ml/min/1.73 sqM); Albumin 4.1 g/dL (3.5-5.0); Alkaline Phosphatase 89 U/L (38-126); Anion Gap 8 mmol/L; Blood Urea Nitrogen 10 mg/dL (9-20); Carbon Dioxide 21 mmol/L (22-30); Chloride 108 mmol/L (98-107); Glucose 105 mg/dL (74-99); Magnesium 2.1 mg/dL (1.6-2.3); Non-African American GFR(CKD) >90 (>60 ml/min/1.73 sqM); Potassium 4.4 mmol/L (3.5-5.1); Sodium 137 mmol/L (137-145); Total Bilirubin 0.9 mg/dL (0.2-1.3); Total Protein 6.9 g/dL (6.3-8.2)
[2021-06-20] MEDS ORDERED: ASPIRIN 81 MG PO STA (19:47)
--- NOTE | 2021-06-20 19:50 | XR ---
EXAMINATION TYPE: XR chest 2V DATE OF EXAM: 06/20/2021 7:35 PM COMPARISON:Multiple radiographs, with the most recent on 06/02/2019 TECHNIQUE: XR chest 2V Frontal view of the chest. CLINICAL INDICATION:Male, 45 years old with history of Chest Pain; FINDINGS: Lungs/Pleura: There is no evidence of pleural effusion, focal consolidation, or pneumothorax. Pulmonary vascularity: Unremarkable. Heart/mediastinum: Cardiomediastinal silhouette is unremarkable. Musculoskeletal: No acute osseous pathology. IMPRESSION: No acute cardiopulmonary disease/process.
[2021-06-20 23:55] VITALS: BP 123/71; PULSE 84
== END 2021-06-21 00:31 | disposition home or self-care (01) ==
LOC: EC 18:30
DX: R07.89 Other chest pain (principal); R42 Dizziness and giddiness; I10 Essential (primary) hypertension; J44.9 Chronic obstructive pulmonary disease, unspecified; Z87.891 Personal history of nicotine dependence; Z88.0 Allergy status to penicillin; Z88.8 Allergy status to other drugs, medicaments and biological substances; Z88.5 Allergy status to narcotic agent
CPT/HCPCS: 36415; 71046; 80053; 83735; 83880; 84484; 85025; 85379; 85610; 85730; 99285

== ENCOUNTER 2021-08-23 | Emergency (ER) | payer OTHER ==
[2021-08-23 00:08] VITALS: RESP 18
[2021-08-23] MEDS ORDERED: SODIUM CHLORIDE 0.9% 1,000 ML IV STA (00:17)
--- NOTE | 2021-08-23 00:24 | ED ---
General Adult HPI - General Chief complaint: Dizziness Stated complaint: Dizziness Time Seen by Provider: 08/23/21 00:10 Source: patient, EMS, RN notes reviewed, old records reviewed Mode of arrival: EMS Limitations: no limitations - History of Present Illness Initial comments: 45-year-old male presents to the emergency room with complaints of weakness and dizziness that started about half an hour prior to arrival. Patient states that he was laying in bed when he became dizzy and short of breath. He states that he checked his blood pressure, his heart rate and his oxygen level and found that his heart rate was in the 50s and his oxygen saturation was 89%. He states his blood pressure was also elevated. Patient appears anxious but denies any f eelings of anxiety. No sick contacts. Denies any chest pain, fevers, nausea, vomiting or diarrhea. Patient does have a history of COPD, seizures, hypertension, anxiety and dizziness. He is a former smoker. -: minutes(s) (30) Severity scale (1-10): 0 Associated Symptoms: shortness of breath, weakness, other (dizzy) Treatments Prior to Arrival: none - Related Data Home Medications Medication Instructions Recorded Confirmed Albuterol Sulfate [Proair Hfa] 2 puff INHALATION RT-QID PRN 06/20/21 06/20/21 Ergocalciferol [Vitamin D2 (1250 1,250 mcg PO MO 06/20/21 06/20/21 Mcg = 20484 Iu)] Pantoprazole [Protonix] 40 mg PO DAILY 06/20/21 06/20/21 Previous Rx's Medication Instructions Recorded Clindamycin HCl 300 mg PO Q6HR #40 cap 06/17/21 atenoloL [Tenormin] 25 mg PO BID #28 tab 06/17/21 diazePAM [Valium] 5 mg PO BID #6 tab 06/17/21 Diazepam [Valium] 10 mg PO Q8H PRN 3 Days #9 tab 06/22/21 Allergies Allergy/AdvReac Type Severity Reaction Status Date / Time Penicillins Allergy Rash/Hives Verified 08/23/21 00:08 codeine AdvReac Hallucinati Verified 08/23/21 00:08 ons hydroxyzine [From Vistaril] AdvReac Seizures Verified 08/23/21 00:08 Review of Systems ROS Statement: Those systems with pertinent positive or pertinent negative responses have been documented in the HPI. ROS Other: All systems not noted in ROS Statement are negative. Past Medical History Past Medical History: COPD, Hypertension, Seizure Disorder Additional Past Medical History / Comment(s): tooth abscess History of Any Multi-Drug Resistant Organisms: None Reported Past Surgical History: No Surgical Hx Reported, Hernia Repair Past Psychological History: Anxiety, Depression Smoking Status: Former smoker, Vaper Past Alcohol Use History: None Reported Past Drug Use History: None Reported General Exam Limitations: no limitations General appearance: alert, in no apparent distress, anxious Head exam: Present: atraumatic, normocephalic Eye exam: Present: normal appearance. Absent: scleral icterus, conjunctival injection ENT exam: Present: normal exam, normal oropharynx, mucous membranes dry Neck exam: Present: normal inspection. Absent: tenderness, meningismus Respiratory exam: Present: normal lung sounds bilaterally. Absent: respiratory distress, accessory muscle use Cardiovascular Exam: Present: regular rate, normal heart sounds GI/Abdominal exam: Present: soft. Absent: distended, tenderness, rigid Extremities exam: Present: normal capillary refill. Absent: pedal edema Back exam: Present: normal inspection, full ROM. Absent: tenderness, CVA tenderness (R), CVA tenderness (L), rash noted Neurological exam: Present: alert, oriented X3, normal gait Psychiatric exam: Present: anxious Skin exam: Present: warm, dry, normal color. Absent: cyanosis, diaphoretic, petechiae, pallor Course Vital Signs 08/23/21 08/23/21 00:06 01:44 Temperature 98.3 F 98.1 F Pulse Rate 82 78 Respiratory 18 18 Rate Blood Pressure 121/79 121/75 O2 Sat by Pulse 99 99 Oximetry EKG Findings - EKG Results: EKG: sinus rhythm (Ventricular rate of 77, MA interval 0.140, QRS 0.93, QTC 0.401) Medical Decision Making - Medical Decision Making Coronavirus test is negative. Electrolytes are unremarkable. D-dimer is negative at 0.34. EKG shows normal sinus rhythm. Troponin is negative at 0.012 Chest x-ray shows no evidence of infiltrate. On exam, vital signs are stable, oxygen saturation is 99% on room air. Lungs are clear to auscultation. Patient appears anxious but denies having anxiety at this time. Review of medical records show that patient has been seen multiple times for similar symptoms. Upon further questioning, patient states that he has been out of his Valium for over a month and is unable to get to his primary care doctor due to lack of transportation. He states that he was seen in the emergency room in the past and given a prescription for Valium and is asking for another prescription. Medical records indicate Valium was prescribed for seizure activity. I did advise him that his anxiety medication should be prescribed by his primary care doctor and not the emergency room. He was given a dose of Ativan for his anxiety in the ER and discharged home. Case discussed with Dr. Shepherd - Lab Data Result diagrams: 08/23/21 00:31 08/23/21 00:31 Lab Results 08/23/21 08/23/21 08/23/21 Range/Units 00:31 00: 00:31 WBC 8.2 (3.8-10.6) k/uL RBC 5.39 (4.30-5.90) m/uL Hgb 15.8 (13.0-17.5) gm/dL Hct 49.8 (39.0-53.0) % MCV 92.4 (80.0-100.0) fL MCH 29.4 (25.0-35.0) pg MCHC 31.8 (31.0-37.0) g/dL RDW 13.0 (11.5-15.5) % Plt Count 257 (150-450) k/uL MPV 7.6 Neutrophils % 55 % Lymphocytes % 30 % Monocytes % 6 % Eosinophils % 4 % Basophils % 2 % Neutrophils # 4.5 (1.3-7.7) k/uL Lymphocytes # 2.5 (1.0-4.8) k/uL Monocytes # 0.5 (0-1.0) k/uL Eosinophils # 0.3 (0-0.7) k/uL Basophils # 0.2 (0-0.2) k/uL D-Dimer (<0.60) mg/L FEU Sodium 137 (137-145) mmol/L Potassium 4.0 (3.5-5.1) mmol/L Chloride 104 (98-107) mmol/L Carbon Dioxide 27 (22-30) mmol/L Anion Gap 6 mmol/L BUN 13 (9-20) mg/dL Creatinine 0.87 (0.66-1.25) mg/dL Est GFR (CKD-EPI)AfAm >90 (>60 ml/min/1.73 sqM) Est GFR (CKD-EPI)NonAf >90 (>60 ml/min/1.73 sqM) Glucose 102 H (74-99) mg/dL Plasma Lactic Acid Matteo 1.6 (0.7-2.0) mmol/L Calcium 8.7 (8.4-10.2) mg/dL Total Bilirubin 0.5 (0.2-1.3) mg/dL AST 31 (17-59) U/L ALT 36 (4-49) U/L Alkaline Phosphatase 97 (38-126) U/L Troponin I (0.000-0.034) ng/mL Total Protein 7.0 (6.3-8.2) g/dL Albumin 4.2 (3.5-5.0) g/dL Coronavirus (PCR) (Not Detectd) 08/23/21 08/23/21 08/23/21 Range/Units 00:31 00:31 00:31 WBC (3.8-10.6) k/uL RBC (4.30-5.90) m/uL Hgb (13.0-17.5) gm/dL Hct (39.0-53.0) % MCV (80.0-100.0) fL MCH (25.0-35.0) pg MCHC (31.0-37.0) g/dL RDW (11.5-15.5) % Plt Count (150-450) k/uL MPV Neutrophils % % Lymphocytes % % Monocytes % % Eosinophils % % Basophils % % Neutrophils # (1.3-7.7) k/uL Lymphocytes # (1.0-4.8) k/uL Monocytes # (0-1.0) k/uL Eosinophils # (0-0.7) k/uL Basophils # (0-0.2) k/uL D-Dimer 0.34 (<0.60) mg/L FEU Sodium (137-145) mmol/L Potassium (3.5-5.1) mmol/L Chloride (98-107) mmol/L Carbon Dioxide (22-30) mmol/L Anion Gap mmol/L BUN (9-20) mg/dL Creatinine (0.66-1.25) mg/dL Est GFR (CKD-EPI)AfAm (>60 ml/min/1.73 sqM) Est GFR (CKD-EPI)NonAf (>60 ml/min/1.73 sqM) Glucose (74-99) mg/dL Plasma Lactic Acid Matteo (0.7-2.0) mmol/L Calcium (8.4-10.2) mg/dL Total Bilirubin (0.2-1.3) mg/dL AST (17-59) U/L ALT (4-49) U/L Alkaline Phosphatase (38-126) U/L Troponin I <0.012 (0.000-0.034) ng/mL Total Protein (6.3-8.2) g/dL Albumin (3.5-5.0) g/dL Coronavirus (PCR) Not Detected (Not Detectd) Disposition Clinical Impression: Dizziness, Weakness, Anxiety Disposition: HOME SELF-CARE Condition: Good Instructions (If sedation given, give patient instructions): Weakness (ED), Dizziness (ED), Anxiety (ED) Additional Instructions: Your blood work, x-ray and EKG are reassuring with no acute abnormalities. At this time I feel you can be safely discharged home. This may be your anxiety, it is important that you follow-up with your primary care doctor this week for continuation of care. Return to the emergency room with any new or concerning symptoms. Is patient prescribed a controlled substance at d/c from ED?: No Referrals: Logan Sanders MD [Primary Care Provider] - 1-2 days Time of Disposition: 01:21
[2021-08-23 00:54] LABS: Basophils # (A) 0.2 k/uL (0-0.2); Basophils % (A) 2 %; Eosinophils # (A) 0.3 k/uL (0-0.7); Eosinophils % (A) 4 %; HCT 49.8 % (39.0-53.0); HGB 15.8 gm/dL (13.0-17.5); Lymphocytes # (A) 2.5 k/uL (1.0-4.8); Lymphocytes % (A) 30 %; MCH 29.4 pg (25.0-35.0); MCHC 31.8 g/dL (31.0-37.0); MCV 92.4 fL (80.0-100.0); Mean Platelet Volume 7.6; Monocytes # (A) 0.5 k/uL (0-1.0); Monocytes % (A) 6 %; Neutrophils # (A) 4.5 k/uL (1.3-7.7); Neutrophils % (A) 55 %; Platelet Count 257 k/uL (150-450); RBC 5.39 m/uL (4.30-5.90); WBC 8.2 k/uL (3.8-10.6)
--- NOTE | 2021-08-23 00:57 | XR ---
EXAMINATION TYPE: XR chest 2V DATE OF EXAM: 08/23/2021 COMPARISON: 06/20/2021 HISTORY: Short of breath TECHNIQUE: 2 views FINDINGS: Heart and mediastinum are normal. Lungs are clear. Diaphragm is normal. Bony thorax appears normal. IMPRESSION: Normal chest. No change.
[2021-08-23 01:01] LABS: ALT 36 U/L (4-49); AST 31 U/L (17-59); African American GFR (CKD) >90 (>60 ml/min/1.73 sqM); Albumin 4.2 g/dL (3.5-5.0); Alkaline Phosphatase 97 U/L (38-126); Anion Gap 6 mmol/L; Blood Urea Nitrogen 13 mg/dL (9-20); Calcium 8.7 mg/dL (8.4-10.2); Carbon Dioxide 27 mmol/L (22-30); Chloride 104 mmol/L (98-107); Glucose 102 mg/dL (74-99); Non-African American GFR(CKD) >90 (>60 ml/min/1.73 sqM); Sodium 137 mmol/L (137-145); Total Bilirubin 0.5 mg/dL (0.2-1.3)
[2021-08-23] MEDS ORDERED: LORazepam 2 MG/ML INJ IV STA (01:27)
[2021-08-23 01:45] VITALS: BP 121/75; PULSE 78; TEMP 98.1
== END 2021-08-23 01:57 | disposition home or self-care (01) ==
LOC: EC
DX: R53.1 Weakness (principal); F41.9 Anxiety disorder, unspecified; R42 Dizziness and giddiness; J44.9 Chronic obstructive pulmonary disease, unspecified; I10 Essential (primary) hypertension; Z87.891 Personal history of nicotine dependence; Z88.0 Allergy status to penicillin; Z88.6 Allergy status to analgesic agent; Z88.8 Allergy status to other drugs, medicaments and biological substances
CPT/HCPCS: 36415; 93005; 85379; 80053; 83605; 84484; 85025; 87635; 71046; 99285; 96374; 96361; J2060

== ENCOUNTER 2021-09-09 16:45 | Emergency (ER) | payer OTHER ==
[2021-09-09] MEDS ORDERED: LORazepam 2 MG/ML INJ IV STA (16:54)
[2021-09-09] MEDS ORDERED: methylPREDNISolone SOD SUCCI 125 MG/2 ML VIAL IV STA (16:54)
[2021-09-09] MEDS ORDERED: MAG HYDROX/AL HYDROX/SIMETH 30 ML CUP PO PRN (16:55)
[2021-09-09] MEDS ORDERED: ONDANSETRON 4 MG/2 ML VIAL IVP STA (16:55)
[2021-09-09] MEDS ORDERED: FAMOTIDINE 20 MG/2 ML VIAL IV STA (16:55)
[2021-09-09 16:56] VITALS: TEMP 98
[2021-09-09 17:38] LABS: Basophils # (A) 0.1 k/uL (0-0.2); Basophils % (A) 1 %; Eosinophils # (A) 0.2 k/uL (0-0.7); Eosinophils % (A) 3 %; HGB 16.9 gm/dL (13.0-17.5); Lymphocytes # (A) 2.3 k/uL (1.0-4.8); Lymphocytes % (A) 32 %; MCH 30.7 pg (25.0-35.0); MCHC 33.2 g/dL (31.0-37.0); MCV 92.7 fL (80.0-100.0); Mean Platelet Volume 7.8; Monocytes # (A) 0.3 k/uL (0-1.0); Monocytes % (A) 4 %; Neutrophils # (A) 4.4 k/uL (1.3-7.7); Neutrophils % (A) 59 %; Platelet Count 296 k/uL (150-450); RBC 5.51 m/uL (4.30-5.90); WBC 7.4 k/uL (3.8-10.6)
[2021-09-09 17:46] LABS: ALT 36 U/L (4-49); AST 33 U/L (17-59); African American GFR (CKD) >90 (>60 ml/min/1.73 sqM); Albumin 4.8 g/dL (3.5-5.0); Alkaline Phosphatase 99 U/L (38-126); Amylase 56 U/L (30-110); Anion Gap 10 mmol/L; Blood Urea Nitrogen 14 mg/dL (9-20); Calcium 9.7 mg/dL (8.4-10.2); Carbon Dioxide 23 mmol/L (22-30); Chloride 106 mmol/L (98-107); Glucose 101 mg/dL (74-99); Lipase 97 U/L (23-300); Non-African American GFR(CKD) >90 (>60 ml/min/1.73 sqM); Potassium 3.9 mmol/L (3.5-5.1); Sodium 139 mmol/L (137-145); Total Bilirubin 0.9 mg/dL (0.2-1.3); Total Protein 7.5 g/dL (6.3-8.2)
[2021-09-09 17:49] LABS: INR 0.9 (<1.2); Partial Thromboplastin Time 24.7 sec (22.0-30.0); Prothrombin Time 10.4 sec (9.0-12.0)
[2021-09-09] MEDS ORDERED: SODIUM CHLORIDE 0.9% 1,000 ML IV STA (17:59)
--- NOTE | 2021-09-09 17:59 | XR ---
EXAMINATION TYPE: XR chest 2V DATE OF EXAM: 09/09/2021 5:28 PM COMPARISON: Chest radiographs from 08/23/2021 TECHNIQUE: XR chest 2V Frontal and lateral views of the chest. CLINICAL INDICATION:Male, 45 years old with history of difficulty breathing; FINDINGS: Lungs/Pleura: There is no evidence of pleural effusion, focal consolidation, or pneumothorax. Pulmonary vascularity: Unremarkable. Heart/mediastinum: Cardiomediastinal silhouette is unremarkable. Musculoskeletal: No acute osseous pathology. IMPRESSION: No acute cardiopulmonary disease/process.
[2021-09-09 18:36] LABS: Appearance,Urine Clear (Clear); Bilirubin,Urine Negative (Negative); Blood,Urine Negative (Negative); Color,Urine Yellow; Glucose,Urine (UA) Negative (Negative); Ketones,Urine Negative (Negative); Leukocyte Esterase,Urine Negative (Negative); Nitrite,Urine Negative (Negative); PH, Urine 7.5 (5.0-8.0); Protein,Urine Negative (Negative); Specific Gravity,Urine 1.009 (1.001-1.035); Urobilinogen,Urine <2.0 mg/dL (<2.0)
--- NOTE | 2021-09-09 18:39 | ED ---
General Adult HPI - General Chief complaint: Shortness of Breath Stated complaint: BRIANNA Time Seen by Provider: 09/09/21 16:53 Source: patient, EMS, RN notes reviewed, old records reviewed Mode of arrival: EMS Limitations: no limitations - History of Present Illness Initial comments: Patient is a 45-year-old male with past medical history remarkable for asthma, COPD, hypertension, seizure disorder is been seen here in our department multiple times over the last few months for similar complaints presents with shortness of breath. States he is having an asthma exacerbation. Upon arrival at his home, EMS started him on an updraft. Had stable vital signs. Lungs were clear. Patient states over the last 3 days his shortness of breath is gone worse so he presents for further evaluation. Patient's friend is a history of blood clots. It sounds like he was sick and was hospitalized. Patient states he was at home and had no follow up with his doctor, so called EMS for further evaluation. He sits this is his asthma. It is also concerning for an infection. Denies cough, fevers. States he has chest pain but points to his epigastric area. States all the symptoms have been ongoing for the last 3 days. Denies diarrhea, nausea, vomiting. Denies any headaches. Denies any fevers. His no other acute complaint at this time. Was previously diagnosed with anxiety. Patient does not believe that is what is going on at this time. - Related Data Home Medications Medication Instructions Recorded Confirmed Albuterol Sulfate [Proair Hfa] 2 puff INHALATION RT-QID PRN 06/20/21 06/20/21 Ergocalciferol [Vitamin D2 (1250 1,250 mcg PO MO 06/20/21 06/20/21 Mcg = 25187 Iu)] Pantoprazole [Protonix] 40 mg PO DAILY 06/20/21 06/20/21 Previous Rx's Medication Instructions Recorded atenoloL [Tenormin] 25 mg PO BID #28 tab 06/17/21 clindamycin HCL [Clindamycin HCl] 300 mg PO Q6HR #40 cap 06/17/21 diazePAM [Valium] 5 mg PO BID #6 tab 06/17/21 diazePAM [Valium] 10 mg PO Q8H PRN 3 Days #9 tab 06/22/21 LORazepam [Ativan] 0.5 mg PO DAILY PRN 3 Days #3 tab 09/09/21 predniSONE [Deltasone] 40 mg PO DAILY 5 Days #10 tab 09/09/21 Allergies Allergy/AdvReac Type Severity Reaction Status Date / Time Penicillins Allergy Rash/Hives Verified 09/09/21 16:57 codeine AdvReac Hallucinati Verified 09/09/21 16:57 ons hydroxyzine [From Vistaril] AdvReac Seizures Verified 09/09/21 16:57 Review of Systems ROS Statement: Those systems with pertinent positive or pertinent negative responses have been documented in the HPI. Review of Systems: CONST: Denies fever EYES: Denies blurry vision ENT: Denies nasal congestion C/V: Endorses chest pain RESP: Endorses shortness of breath GI: Denies abdominal pain : Denies dysuria SKIN: Denies rash. MSK: Denies joint pain. NEURO: Denies headache ROS Other: All systems not noted in ROS Statement are negative. Past Medical History Past Medical History: Asthma, COPD, Hypertension, Seizure Disorder Additional Past Medical History / Comment(s): tooth abscess History of Any Multi-Drug Resistant Organisms: None Reported Past Surgical History: No Surgical Hx Reported, Hernia Repair Past Psychological History: Anxiety, Depression Smoking Status: Former smoker, Vaper Past Alcohol Use History: None Reported Past Drug Use History: None Reported General Exam - General Exam Comments Initial Comments: General: Appears in mild distress. Appears to be having a panic attack. HEAD: Normal with no signs of head trauma. EYES: PERRLA, EOMI, conjunctiva normal, no discharge. ENT: Hearing grossly intact, normal oropharynx. RESPIRATORY: Clear breath sounds bilaterally. No wheezes, rales, or rhonchi. No hypoxia. No increased work of breathing. C/V: Regular rate and rhythm. S1 and S2 auscultated, no edema, peripheral pulses 2+ and intact throughout ABD: Abd is soft, nontender, nondistended EXT: Normal range of motion, no obvious deformity SKIN: No rashes or lesions observed on exposed skin. NEURO: Alert and oriented 4. No focal sensory strength deficits. Limitations: no limitations Course Vital Signs 09/09/21 09/09/21 16:47 19:15 Temperature 98.0 F Pulse Rate 97 82 Respiratory 22 18 Rate Blood Pressure 124/77 122/76 O2 Sat by Pulse 99 99 Oximetry Procedures - [facility] Protocol (Time Out) Nurse: Elizabeth Cutler Medical Decision Making - Medical Decision Making Based on the patient's presentation and physical exam, I have a strong suspicion that he is experiencing a panic attack. However patient says this is not the case. Vital signs within normal limits. He has no obvious signs of asthma. However we will rule out other etiology for shortness of breath at this time including cardiac, pulmonary, blood clot. He was in agreement this plan. He will be given IV steroids, a GI cocktail, as well as IV Ativan. Patient will receive a 1 L fluid bolus. He was in agreement this plan. EKG showed no signs of acute ischemia. Chest x-ray shows no acute cardiopulmonary process. Laboratory studies are remarkable for a d-dimer within normal limits at 0.46. Patient is slightly elevated lactic acid of 2.6 which is likely related to his increased work of breathing. Slight dehydration. Is receiving IV fluid bolus. Troponin is undetectable for his chest pain that has been ongoing for the last 3 days. BNP is within normal limits.Remainder of the labs are unremarkable. On reevaluation, vital signs remain within normal limits. We discussed at length his symptoms and likely he is experiencing anxiety or panic attack. He finally did admit that he was stopped on diazepam which was a daily medication for him up until 2 months ago and this is when he started presenting from home for these complaints of shortness of breath. I expect him he is likely experiencing these because he is no longer on his anxiety medication which was diazepam at this time. I discussed that I cannot provide him with a long-term medication for this, but can give him 3 tablets of Ativan for home until he can follow-up with his PCP. He did have an appointment but missed the appointment because he states "I did not feel well." I stressed the importance of following up with his PCP. He expressed understanding. He also be given prednisone for home for his mild asthma exacerbation. he was in agreement and would like to go home at this time. I will provide the patient with a prescription for prednisone 40 mg for 5 days, Ativan 3 tablets total 0.5 mg. I instructed the patient to follow up with their PCP in the next 3 days. I explained that the patient should return to the emergency department if they experience any worsening symptoms. Strict return precautions were discussed with the patient. The patient expressed understanding of these instructions. I answered all questions that the patient had. The patient was discharged home in good condition with their prescriptions and follow up information. - Lab Data Result diagrams: 09/09/21 17:20 09/09/21 17:20 Lab Results 09/09/21 09/09/21 09/09/21 Range/Units 17:20 17:20 17:20 WBC 7.4 (3.8-10.6) k/uL RBC 5.51 (4.30-5.90) m/uL Hgb 16.9 (13.0-17.5) gm/dL Hct 51.0 (39.0-53.0) % MCV 92.7 (80.0-100.0) fL MCH 30.7 (25.0-35.0) pg MCHC 33.2 (31.0-37.0) g/dL RDW 13.0 (11.5-15.5) % Plt Count 296 (150-450) k/uL MPV 7.8 Neutrophils % 59 % Lymphocytes % 32 % Monocytes % 4 % Eosinophils % 3 % Basophils % 1 % Neutrophils # 4.4 (1.3-7.7) k/uL Lymphocytes # 2.3 (1.0-4.8) k/uL Monocytes # 0.3 (0-1.0) k/uL Eosinophils # 0.2 (0-0.7) k/uL Basophils # 0.1 (0-0.2) k/uL PT 10.4 (9.0-12.0) sec INR 0.9 (<1.2) APTT 24.7 (22.0-30.0) sec D-Dimer 0.46 (<0.60) mg/L FEU Sodium 139 (137-145) mmol/L Potassium 3.9 (3.5-5.1) mmol/L Chloride 106 (98-107) mmol/L Carbon Dioxide 23 (22-30) mmol/L Anion Gap 10 mmol/L BUN 14 (9-20) mg/dL Creatinine 0.95 (0.66-1.25) mg/dL Est GFR (CKD-EPI)AfAm >90 (>60 ml/min/1.73 sqM) Est GFR (CKD-EPI)NonAf >90 (>60 ml/min/1.73 sqM) Glucose 101 H (74-99) mg/dL Lactic Ac Sepsis Rflx Plasma Lactic Acid Matteo (0.7-2.0) mmol/L Calcium 9.7 (8.4-10.2) mg/dL Magnesium 2.0 (1.6-2.3) mg/dL Total Bilirubin 0.9 (0.2-1.3) mg/dL AST 33 (17-59) U/L ALT 36 (4-49) U/L Alkaline Phosphatase 99 (38-126) U/L Troponin I (0.000-0.034) ng/mL NT-Pro-B Natriuret Pep pg/mL Total Protein 7.5 (6.3-8.2) g/dL Albumin 4.8 (3.5-5.0) g/dL Amylase 56 (30-110) U/L Lipase 97 (23-300) U/L Urine Color Urine Appearance (Clear) Urine pH (5.0-8.0) Ur Specific Byron (1.001-1.035) Urine Protein (Negative) Urine Glucose (UA) (Negative) Urine Ketones (Negative) Urine Blood (Negative) Urine Nitrite (Negative) Urine Bilirubin (Negative) Urine Urobilinogen (<2.0) mg/dL Ur Leukocyte Esterase (Negative) Coronavirus (PCR) (Not Detectd) Influenza Type A RNA (Not Detectd) Influenza Type B (PCR) (Not Detectd) 09/09/21 09/09/21 09/09/21 Range/Units 17:20 17:20 17:20 WBC (3.8-10.6) k/uL RBC (4.30-5.90) m/uL Hgb (13.0-17.5) gm/dL Hct (39.0-53.0) % MCV (80.0-100.0) fL MCH (25.0-35.0) pg MCHC (31.0-37.0) g/dL RDW (11.5-15.5) % Plt Count (150-450) k/uL MPV Neutrophils % % Lymphocytes % % Monocytes % % Eosinophils % % Basophils % % Neutrophils # (1.3-7.7) k/uL Lymphocytes # (1.0-4.8) k/uL Monocytes # (0-1.0) k/uL Eosinophils # (0-0.7) k/uL Basophils # (0-0.2) k/uL PT (9.0-12.0) sec INR (<1.2) APTT (22.0-30.0) sec D-Dimer (<0.60) mg/L FEU Sodium (137-145) mmol/L Potassium (3.5-5.1) mmol/L Chloride (98-107) mmol/L Carbon Dioxide (22-30) mmol/L Anion Gap mmol/L BUN (9-20) mg/dL Creatinine (0.66-1.25) mg/dL Est GFR (CKD-EPI)AfAm (>60 ml/min/1.73 sqM) Est GFR (CKD-EPI)NonAf (>60 ml/min/1.73 sqM) Glucose (74-99) mg/dL Lactic Ac Sepsis Rflx Plasma Lactic Acid Matteo 2.6 H* (0.7-2.0) mmol/L Calcium (8.4-10.2) mg/dL Magnesium (1.6-2.3) mg/dL Total Bilirubin (0.2-1.3) mg/dL AST (17-59) U/L ALT (4-49) U/L Alkaline Phosphatase (38-126) U/L Troponin I <0.012 (0.000-0.034) ng/mL NT-Pro-B Natriuret Pep 98 pg/mL Total Protein (6.3-8.2) g/dL Albumin (3.5-5.0) g/dL Amylase (30-110) U/L Lipase (23-300) U/L Urine Color Urine Appearance (Clear) Urine pH (5.0-8.0) Ur Specific Byron (1.001-1.035) Urine Protein (Negative) Urine Glucose (UA) (Negative) Urine Ketones (Negative) Urine Blood (Negative) Urine Nitrite (Negative) Urine Bilirubin (Negative) Urine Urobilinogen (<2.0) mg/dL Ur Leukocyte Esterase (Negative) Coronavirus (PCR) (Not Detectd) Influenza Type A RNA (Not Detectd) Influenza Type B (PCR) (Not Detectd) 09/09/21 09/09/21 09/09/21 Range/Units 17:20 17:20 17:20 WBC (3.8-10.6) k/uL RBC (4.30-5.90) m/uL Hgb (13.0-17.5) gm/dL Hct (39.0-53.0) % MCV (80.0-100.0) fL MCH (25.0-35.0) pg MCHC (31.0-37.0) g/dL RDW (11.5-15.5) % Plt Count (150-450) k/uL MPV Neutrophils % % Lymphocytes % % Monocytes % % Eosinophils % % Basophils % % Neutrophils # (1.3-7.7) k/uL Lymphocytes # (1.0-4.8) k/uL Monocytes # (0-1.0) k/uL Eosinophils # (0-0.7) k/uL Basophils # (0-0.2) k/uL PT (9.0-12.0) sec INR (<1.2) APTT (22.0-30.0) sec D-Dimer (<0.60) mg/L FEU Sodium (137-145) mmol/L Potassium (3.5-5.1) mmol/L Chloride (98-107) mmol/L Carbon Dioxide (22-30) mmol/L Anion Gap mmol/L BUN (9-20) mg/dL Creatinine (0.66-1.25) mg/dL Est GFR (CKD-EPI)AfAm (>60 ml/min/1.73 sqM) Est GFR (CKD-EPI)NonAf (>60 ml/min/1.73 sqM) Glucose (74-99) mg/dL Lactic Ac Sepsis Rflx Plasma Lactic Acid Matteo (0.7-2.0) mmol/L Calcium (8.4-10.2) mg/dL Magnesium (1.6-2.3) mg/dL Total Bilirubin (0.2-1.3) mg/dL AST (17-59) U/L ALT (4-49) U/L Alkaline Phosphatase (38-126) U/L Troponin I (0.000-0.034) ng/mL NT-Pro-B Natriuret Pep pg/mL Total Protein (6.3-8.2) g/dL Albumin (3.5-5.0) g/dL Amylase (30-110) U/L Lipase (23-300) U/L Urine Color Yellow Urine Appearance Clear (Clear) Urine pH 7.5 (5.0-8.0) Ur Specific Byron 1.009 (1.001-1.035) Urine Protein Negative (Negative) Urine Glucose (UA) Negative (Negative) Urine Ketones Negative (Negative) Urine Blood Negative (Negative) Urine Nitrite Negative (Negative) Urine Bilirubin Negative (Negative) Urine Urobilinogen <2.0 (<2.0) mg/dL Ur Leukocyte Esterase Negative (Negative) Coronavirus (PCR) Not Detected (Not Detectd) Influenza Type A RNA Not Detected (Not Detectd) Influenza Type B (PCR) Not Detected (Not Detectd) 09/09/21 Range/Units 17:58 WBC (3.8-10.6) k/uL RBC (4.30-5.90) m/uL Hgb (13.0-17.5) gm/dL Hct (39.0-53.0) % MCV (80.0-100.0) fL MCH (25.0-35.0) pg MCHC (31.0-37.0) g/dL RDW (11.5-15.5) % Plt Count (150-450) k/uL MPV Neutrophils % % Lymphocytes % % Monocytes % % Eosinophils % % Basophils % % Neutrophils # (1.3-7.7) k/uL Lymphocytes # (1.0-4.8) k/uL Monocytes # (0-1.0) k/uL Eosinophils # (0-0.7) k/uL Basophils # (0-0.2) k/uL PT (9.0-12.0) sec INR (<1.2) APTT (22.0-30.0) sec D-Dimer (<0.60) mg/L FEU Sodium (137-145) mmol/L Potassium (3.5-5.1) mmol/L Chloride (98-107) mmol/L Carbon Dioxide (22-30) mmol/L Anion Gap mmol/L BUN (9-20) mg/dL Creatinine (0.66-1.25) mg/dL Est GFR (CKD-EPI)AfAm (>60 ml/min/1.73 sqM) Est GFR (CKD-EPI)NonAf (>60 ml/min/1.73 sqM) Glucose (74-99) mg/dL Lactic Ac Sepsis Rflx Y Plasma Lactic Acid Matteo (0.7-2.0) mmol/L Calcium (8.4-10.2) mg/dL Magnesium (1.6-2.3) mg/dL Total Bilirubin (0.2-1.3) mg/dL AST (17-59) U/L ALT (4-49) U/L Alkaline Phosphatase (38-126) U/L Troponin I (0.000-0.034) ng/mL NT-Pro-B Natriuret Pep pg/mL Total Protein (6.3-8.2) g/dL Albumin (3.5-5.0) g/dL Amylase (30-110) U/L Lipase (23-300) U/L Urine Color Urine Appearance (Clear) Urine pH (5.0-8.0) Ur Specific Byron (1.001-1.035) Urine Protein (Negative) Urine Glucose (UA) (Negative) Urine Ketones (Negative) Urine Blood (Negative) Urine Nitrite (Negative) Urine Bilirubin (Negative) Urine Urobilinogen (<2.0) mg/dL Ur Leukocyte Esterase (Negative) Coronavirus (PCR) (Not Detectd) Influenza Type A RNA (Not Detectd) Influenza Type B (PCR) (Not Detectd) - EKG Data -: EKG Interpreted by Me EKG Comments: 12-lead Electrocardiogram Interpretation Note EKG was reviewed and interpreted by myself. 12-lead ECG performed at 1654 is interpreted by me as revealing normal sinus rhythm at a rate of default value beats per minute. [place] is normal. [place] intervals 139 ms, QRS duration is 90 ms, QTc is 393 ms.. There were no ST or T wave abnormalities to suggest myocardial ischemia or injury. R wave progression across the precordium was satisfactory. By my interpretation this EKG is non-diagnostic for acute ischemia. Disposition Clinical Impression: Anxiety, Panic attack, Asthma exacerbation Disposition: HOME SELF-CARE Condition: Good Instructions (If sedation given, give patient instructions): Asthma (ED), Panic Attack (ED) Prescriptions: LORazepam [Ativan] 0.5 mg PO DAILY PRN 3 Days #3 tab PRN Reason: Anxiety predniSONE [Deltasone] 40 mg PO DAILY 5 Days #10 tab Is patient prescribed a controlled substance at d/c from ED?: Yes When asked, does pt state using other controlled substances?: No If prescribed controlled substance>3 days was MAPS reviewed?: Prescribed <3 Days Referrals: Errol Ness [Primary Care Provider] - 1-2 days Time of Disposition: 18:55
[2021-09-09 19:24] VITALS: BP 122/76; PULSE 82; RESP 18
== END 2021-09-09 19:15 | disposition home or self-care (01) ==
LOC: EC 16:45
DX: J45.901 Unspecified asthma with (acute) exacerbation (principal); F41.9 Anxiety disorder, unspecified; F41.0 Panic disorder [episodic paroxysmal anxiety]; I10 Essential (primary) hypertension; Z20.822 Contact with and (suspected) exposure to COVID-19; Z87.891 Personal history of nicotine dependence; Z88.0 Allergy status to penicillin; Z88.5 Allergy status to narcotic agent; Z88.6 Allergy status to analgesic agent
CPT/HCPCS: 36415; 85379; 83880; 80053; 82150; 83605; 83690; 83735; 84484; 85025; 85610; 85730; 81003; 87502; 87635; 71046; 99285; 96374; 96375; 96361; J2060; J2930

== ENCOUNTER 2021-09-09 23:52 | Emergency (ER) | payer OTHER ==
[2021-09-10] VITALS: TEMP 97.2
[2021-09-10 04:40] VITALS: RESP 16
[2021-09-10 04:57] LABS: Basophils % (A) 0 %; Eosinophils % (A) 0 %; HCT 45.8 % (39.0-53.0); Lymphocytes # (A) 0.9 k/uL (1.0-4.8); Lymphocytes % (A) 10 %; MCH 30.3 pg (25.0-35.0); MCHC 32.8 g/dL (31.0-37.0); MCV 92.5 fL (80.0-100.0); Mean Platelet Volume 7.6; Monocytes # (A) 0.2 k/uL (0-1.0); Monocytes % (A) 2 %; Neutrophils # (A) 7.7 k/uL (1.3-7.7); Neutrophils % (A) 87 %; Platelet Count 288 k/uL (150-450); RBC 4.96 m/uL (4.30-5.90); WBC 8.8 k/uL (3.8-10.6)
[2021-09-10 05:09] LABS: ALT 34 U/L (4-49); AST 29 U/L (17-59); African American GFR (CKD) >90 (>60 ml/min/1.73 sqM); Albumin 4.4 g/dL (3.5-5.0); Alkaline Phosphatase 81 U/L (38-126); Anion Gap 9 mmol/L; Blood Urea Nitrogen 13 mg/dL (9-20); Calcium 9.1 mg/dL (8.4-10.2); Carbon Dioxide 20 mmol/L (22-30); Chloride 108 mmol/L (98-107); Glucose 140 mg/dL (74-99); Non-African American GFR(CKD) >90 (>60 ml/min/1.73 sqM); Potassium 4.6 mmol/L (3.5-5.1); Sodium 137 mmol/L (137-145); Total Bilirubin 0.6 mg/dL (0.2-1.3)
[2021-09-10] MEDS ORDERED: SODIUM CHLORIDE 0.9% 1,000 ML IV ONE (06:24)
[2021-09-10 07:04] VITALS: BP 96/64; PULSE 68
--- NOTE | 2021-09-10 07:38 | ED ---
Arrhythmia/Palpitations HPI - General Chief Complaint: Arrhythmia/Palpitations Stated Complaint: Palpitations, anxiety Time Seen by Provider: 09/10/21 03:30 Source: patient Mode of arrival: EMS Limitations: no limitations - History of Present Illness Initial Comments: This patient's 45-year-old man who presents with complaint that he has been having episodes where his heart rate is elevated. Patient does note that he had previously been on benzodiazepine but that that was stopped recently. Patient did not have chest pains. There is some intermittent mild dyspnea associated with the palpitations. No other symptoms. MD Complaint: rapid heart beat -: hour(s) Context: occurred during rest Associated Symptoms: shortness of breath, anxiety - Related Data Home Medications Medication Instructions Recorded Confirmed Albuterol Sulfate [Proair Hfa] 2 puff INHALATION RT-QID PRN 06/20/21 06/20/21 Ergocalciferol [Vitamin D2 (1250 1,250 mcg PO MO 06/20/21 06/20/21 Mcg = 26267 Iu)] Pantoprazole [Protonix] 40 mg PO DAILY 06/20/21 06/20/21 Previous Rx's Medication Instructions Recorded atenoloL [Tenormin] 25 mg PO BID #28 tab 06/17/21 clindamycin HCL [Clindamycin HCl] 300 mg PO Q6HR #40 cap 06/17/21 diazePAM [Valium] 5 mg PO BID #6 tab 06/17/21 diazePAM [Valium] 10 mg PO Q8H PRN 3 Days #9 tab 06/22/21 LORazepam [Ativan] 0.5 mg PO DAILY PRN 3 Days #3 tab 09/09/21 predniSONE [Deltasone] 40 mg PO DAILY 5 Days #10 tab 09/09/21 Allergies Allergy/AdvReac Type Severity Reaction Status Date / Time Penicillins Allergy Rash/Hives Verified 09/10/21 00:00 codeine AdvReac Hallucinati Verified 09/10/21 00:00 ons hydroxyzine [From Vistaril] AdvReac Seizures Verified 09/10/21 00:00 Review of Systems ROS Statement: Those systems with pertinent positive or pertinent negative responses have been documented in the HPI. ROS Other: All systems not noted in ROS Statement are negative. Constitutional: Denies: fever, chills Respiratory: Reports: dyspnea. Denies: cough Cardiovascular: Reports: palpitations. Denies: chest pain, orthopnea, edema, syncope Gastrointestinal: Denies: abdominal pain, nausea, vomiting, diarrhea Genitourinary: Denies: dysuria, hematuria Skin: Denies: rash Neurological: Denies: headache, weakness Psychiatric: Reports: anxiety Past Medical History Past Medical History: Asthma, COPD, Hypertension, Seizure Disorder Additional Past Medical History / Comment(s): tooth abscess History of Any Multi-Drug Resistant Organisms: None Reported Past Surgical History: No Surgical Hx Reported, Hernia Repair Past Psychological History: Anxiety, Depression Smoking Status: Former smoker, Vaper Past Alcohol Use History: None Reported Past Drug Use History: None Reported General Exam Limitations: no limitations General appearance: alert, in no apparent distress Head exam: Present: atraumatic, normocephalic Eye exam: Present: normal appearance. Absent: scleral icterus, conjunctival injection Neck exam: Present: normal inspection Respiratory exam: Present: normal lung sounds bilaterally. Absent: respiratory distress, wheezes, rales, rhonchi, stridor Cardiovascular Exam: Present: regular rate, normal rhythm, normal heart sounds. Absent: systolic murmur, diastolic murmur, rubs, gallop GI/Abdominal exam: Present: soft. Absent: distended, tenderness, guarding, rebound, rigid, mass Extremities exam: Present: normal inspection, normal capillary refill. Absent: pedal edema, calf tenderness Back exam: Present: normal inspection. Absent: CVA tenderness (R), CVA tenderness (L) Neurological exam: Present: alert Psychiatric exam: Present: anxious Skin exam: Present: warm, dry, intact, normal color. Absent: rash Course Vital Signs 09/09/21 09/10/21 09/10/21 23:57 04:39 07:03 Temperature 97.2 F L Pulse Rate 105 H 75 68 Respiratory 18 16 16 Rate Blood Pressure 130/79 98/61 96/64 O2 Sat by Pulse 99 97 98 Oximetry Medical Decision Making - Lab Data Result diagrams: 09/10/21 04:44 09/10/21 04:44 Lab Results 09/10/21 09/10/21 09/10/21 Range/Units 04:44 04:44 04:44 WBC 8.8 (3.8-10.6) k/uL RBC 4.96 (4.30-5.90) m/uL Hgb 15.0 (13.0-17.5) gm/dL Hct 45.8 (39.0-53.0) % MCV 92.5 (80.0-100.0) fL MCH 30.3 (25.0-35.0) pg MCHC 32.8 (31.0-37.0) g/dL RDW 13.0 (11.5-15.5) % Plt Count 288 (150-450) k/uL MPV 7.6 Neutrophils % 87 % Lymphocytes % 10 % Monocytes % 2 % Eosinophils % 0 % Basophils % 0 % Neutrophils # 7.7 (1.3-7.7) k/uL Lymphocytes # 0.9 L (1.0-4.8) k/uL Monocytes # 0.2 (0-1.0) k/uL Eosinophils # 0.0 (0-0.7) k/uL Basophils # 0.0 (0-0.2) k/uL Sodium 137 (137-145) mmol/L Potassium 4.6 (3.5-5.1) mmol/L Chloride 108 H (98-107) mmol/L Carbon Dioxide 20 L (22-30) mmol/L Anion Gap 9 mmol/L BUN 13 (9-20) mg/dL Creatinine 0.81 (0.66-1.25) mg/dL Est GFR (CKD-EPI)AfAm >90 (>60 ml/min/1.73 sqM) Est GFR (CKD-EPI)NonAf >90 (>60 ml/min/1.73 sqM) Glucose 140 H (74-99) mg/dL Calcium 9.1 (8.4-10.2) mg/dL Total Bilirubin 0.6 (0.2-1.3) mg/dL AST 29 (17-59) U/L ALT 34 (4-49) U/L Alkaline Phosphatase 81 (38-126) U/L Troponin I <0.012 (0.000-0.034) ng/mL Total Protein 7.0 (6.3-8.2) g/dL Albumin 4.4 (3.5-5.0) g/dL Disposition Clinical Impression: Near syncope Disposition: HOME SELF-CARE Condition: Good Instructions (If sedation given, give patient instructions): Near Syncope (ED) Is patient prescribed a controlled substance at d/c from ED?: No Referrals: Errol Ness [Primary Care Provider] - 1-2 days Time of Disposition: 07:15
== END 2021-09-10 07:54 | disposition home or self-care (01) ==
LOC: EC 23:52
DX: R55 Syncope and collapse (principal); J45.909 Unspecified asthma, uncomplicated; I10 Essential (primary) hypertension; Z87.891 Personal history of nicotine dependence; Z88.8 Allergy status to other drugs, medicaments and biological substances; Z88.0 Allergy status to penicillin; Z88.5 Allergy status to narcotic agent
CPT/HCPCS: 36415; 80053; 84484; 85025; 93005

== ENCOUNTER 2021-09-13 19:18 | Emergency (ER) | payer OTHER ==
[2021-09-13 19:28] VITALS: RESP 16; TEMP 97.9
[2021-09-13] MEDS ORDERED: KETOROLAC 15 MG/ML 1 ML VIAL IVP STA (19:53)
[2021-09-13] MEDS ORDERED: SODIUM CHLORIDE 0.9% 1,000 ML IV STA (19:53)
[2021-09-13] MEDS ORDERED: ASPIRIN 81 MG PO STA (19:53)
[2021-09-13] MEDS ORDERED: methocarbamoL 500 MG TAB PO STA (19:54)
[2021-09-13] MEDS ORDERED: LORazepam 1 MG TAB PO STA (19:54)
--- NOTE | 2021-09-13 20:10 | ED ---
General Adult HPI - General Chief complaint: Extremity Problem,Nontraumatic Stated complaint: Extremity Pain Time Seen by Provider: 09/13/21 19:26 Source: patient, EMS, RN notes reviewed, old records reviewed Mode of arrival: EMS - History of Present Illness Initial comments: Patient is a 45-year-old male who presents after frequent reevaluation over the last multiple weeks for symptoms related to anxiety complaining of nonspecific complaints. States earlier this weekend he coughed and then felt some left rib pain that he states radiated to his right shoulder and then down to his right knee over the anterior aspect of his body. No known palliative or provocative factors. States he thinks he has sepsis. Has no known sick contacts. This is similar to prior presentations which I personally have seen him for. Usually improves after treating his anxiety. He lives at home alone with no ride. He is due to follow-up with his PCP tomorrow. Denies any shortness breath, fevers, chills, cough, abdominal pain, nausea, vomiting, diarrhea. No known sick contacts. Presents for further evaluation at this time. - Related Data Home Medications Medication Instructions Recorded Confirmed Albuterol Sulfate [Proair Hfa] 2 puff INHALATION RT-QID PRN 06/20/21 06/20/21 Ergocalciferol [Vitamin D2 (1250 1,250 mcg PO MO 06/20/21 06/20/21 Mcg = 55344 Iu)] Pantoprazole [Protonix] 40 mg PO DAILY 06/20/21 06/20/21 Previous Rx's Medication Instructions Recorded atenoloL [Tenormin] 25 mg PO BID #28 tab 06/17/21 clindamycin HCL [Clindamycin HCl] 300 mg PO Q6HR #40 cap 06/17/21 diazePAM [Valium] 5 mg PO BID #6 tab 06/17/21 diazePAM [Valium] 10 mg PO Q8H PRN 3 Days #9 tab 06/22/21 LORazepam [Ativan] 0.5 mg PO DAILY PRN 3 Days #3 tab 09/09/21 predniSONE [Deltasone] 40 mg PO DAILY 5 Days #10 tab 09/09/21 Allergies Allergy/AdvReac Type Severity Reaction Status Date / Time Penicillins Allergy Rash/Hives Verified 09/10/21 00:00 codeine AdvReac Hallucinati Verified 09/10/21 00:00 ons hydroxyzine [From Vistaril] AdvReac Seizures Verified 09/10/21 00:00 Review of Systems ROS Statement: Those systems with pertinent positive or pertinent negative responses have been documented in the HPI. Review of Systems: CONST: Denies fever EYES: Denies blurry vision ENT: Denies nasal congestion C/V: Endorses left-sided rib pain RESP: Denies shortness of breath GI: Denies abdominal pain : Denies dysuria SKIN: Denies rash. MSK: Endorses joint pain NEURO: Denies headache ROS Other: All systems not noted in ROS Statement are negative. Past Medical History Past Medical History: Asthma, COPD, Hypertension, Seizure Disorder Additional Past Medical History / Comment(s): tooth abscess History of Any Multi-Drug Resistant Organisms: None Reported Past Surgical History: No Surgical Hx Reported, Hernia Repair Past Psychological History: Anxiety, Depression Smoking Status: Former smoker, Vaper Past Alcohol Use History: None Reported Past Drug Use History: None Reported General Exam - General Exam Comments Initial Comments: General: Appears in no acute distress. HEAD: Normal with no signs of head trauma. EYES: PERRLA, EOMI, conjunctiva normal, no discharge. ENT: Hearing grossly intact, normal oropharynx. RESPIRATORY: Clear breath sounds bilaterally. No wheezes, rales, or rhonchi. C/V: Regular rate and rhythm. S1 and S2 auscultated, no edema, peripheral pulses 2+ and intact throughout ABD: Abd is soft, nontender, nondistended EXT: Normal range of motion. No obvious deformity of the extremities. No midline spinal tenderness to palpation. No focal tenderness of the right shoulder, primarily appears to be over the scapula and the supraspinatus and infraspinatus muscles. No obvious knee tenderness to palpation. SKIN: No rashes or lesions observed on exposed skin. NEURO: Alert and oriented 4. Course Vital Signs 09/13/21 09/13/21 19:23 22:16 Temperature 97.9 F Pulse Rate 75 74 Respiratory 16 Rate Blood Pressure 116/88 108/61 O2 Sat by Pulse 99 Oximetry Medical Decision Making - Medical Decision Making Based on the patient's presentation and physical exam, I do believe anxiety is playing a role into his current complaints but cannot rule out other etiology at this time. He'll receive Ativan addition to basic labs, cardiac labs due to the chest pain in addition to x-rays of the right shoulder and right knee. I did estate planning counselor him that looking back at his previous labs, he was not septic. He expre ssed understanding. Vital signs are within normal limits otherwise. He will receive symptomatic treatment. He was in agreement this plan. EKG shows no signs of acute ischemia.Chest x-ray shows no acute cardio pulmonary process. Shoulder x-ray shows no acute injury. It does reveal a posterior rib fracture on the right. This is old and chronic. Right knee x-ray shows no acute injury. Laboratory studies are remarkable for a negative troponin. Remainder of the labs are unremarkable. On reevaluation and patient is feeling improved. Did discuss with him at length in consultation on the importance of follow-up with his PCP which he does have an appointment with tomorrow. He was in agreement this plan. Patient is likely experiencing musculoskeletal pain which can be managed with [id number] analgesia. He was in agreement this plan. I instructed the patient to follow up with their PCP in the next 3 days. I explained that the patient should return to the emergency department if they experience any worsening symptoms. Strict return precautions were discussed with the patient. The patient expressed understanding of these instructions. I answered all questions that the patient had. The patient was discharged home in good condition with their prescriptions and follow up information. - Lab Data Result diagrams: 09/13/21 20:55 09/13/21 20:55 Lab Results 09/13/21 09/13/21 09/13/21 Range/Units 20:55 20:55 20:55 WBC 10.1 (3.8-10.6) k/uL RBC 5.35 (4.30-5.90) m/uL Hgb 16.5 (13.0-17.5) gm/dL Hct 49.7 (39.0-53.0) % MCV 92.9 (80.0-100.0) fL MCH 30.8 (25.0-35.0) pg MCHC 33.2 (31.0-37.0) g/dL RDW 12.9 (11.5-15.5) % Plt Count 318 (150-450) k/uL MPV 7.7 Neutrophils % 65 % Lymphocytes % 24 % Monocytes % 6 % Eosinophils % 3 % Basophils % 2 % Neutrophils # 6.6 (1.3-7.7) k/uL Lymphocytes # 2.5 (1.0-4.8) k/uL Monocytes # 0.6 (0-1.0) k/uL Eosinophils # 0.3 (0-0.7) k/uL Basophils # 0.2 (0-0.2) k/uL PT 10.7 (9.0-12.0) sec INR 1.0 (<1.2) APTT 24.0 (22.0-30.0) sec Sodium 139 (137-145) mmol/L Potassium 4.6 (3.5-5.1) mmol/L Chloride 106 (98-107) mmol/L Carbon Dioxide 26 (22-30) mmol/L Anion Gap 7 mmol/L BUN 13 (9-20) mg/dL Creatinine 1.03 (0.66-1.25) mg/dL Est GFR (CKD-EPI)AfAm >90 (>60 ml/min/1.73 sqM) Est GFR (CKD-EPI)NonAf 89 (>60 ml/min/1.73 sqM) Glucose 99 (74-99) mg/dL Calcium 9.6 (8.4-10.2) mg/dL Magnesium 2.3 (1.6-2.3) mg/dL Total Bilirubin 0.7 (0.2-1.3) mg/dL AST 34 (17-59) U/L ALT 42 (4-49) U/L Alkaline Phosphatase 98 (38-126) U/L Troponin I (0.000-0.034) ng/mL Total Protein 7.4 (6.3-8.2) g/dL Albumin 4.7 (3.5-5.0) g/dL 09/13/21 Range/Units 20:55 WBC (3.8-10.6) k/uL RBC (4.30-5.90) m/uL Hgb (13.0-17.5) gm/dL Hct (39.0-53.0) % MCV (80.0-100.0) fL MCH (25.0-35.0) pg MCHC (31.0-37.0) g/dL RDW (11.5-15.5) % Plt Count (150-450) k/uL MPV Neutrophils % % Lymphocytes % % Monocytes % % Eosinophils % % Basophils % % Neutrophils # (1.3-7.7) k/uL Lymphocytes # (1.0-4.8) k/uL Monocytes # (0-1.0) k/uL Eosinophils # (0-0.7) k/uL Basophils # (0-0.2) k/uL PT (9.0-12.0) sec INR (<1.2) APTT (22.0-30.0) sec Sodium (137-145) mmol/L Potassium (3.5-5.1) mmol/L Chloride (98-107) mmol/L Carbon Dioxide (22-30) mmol/L Anion Gap mmol/L BUN (9-20) mg/dL Creatinine (0.66-1.25) mg/dL Est GFR (CKD-EPI)AfAm (>60 ml/min/1.73 sqM) Est GFR (CKD-EPI)NonAf (>60 ml/min/1.73 sqM) Glucose (74-99) mg/dL Calcium (8.4-10.2) mg/dL Magnesium (1.6-2.3) mg/dL Total Bilirubin (0.2-1.3) mg/dL AST (17-59) U/L ALT (4-49) U/L Alkaline Phosphatase (38-126) U/L Troponin I <0.012 (0.000-0.034) ng/mL Total Protein (6.3-8.2) g/dL Albumin (3.5-5.0) g/dL - EKG Data -: EKG Interpreted by Me EKG Comments: 12-lead Electrocardiogram Interpretation Note EKG was reviewed and interpreted by myself. 12-lead ECG performed at 1921 is interpreted by me as revealing normal sinus rhythm at a rate of 75 beats per minute. Excello is normal. AR interval is 136 ms, QRS duration is 97 ms, QTc is 390 ms.. There were no ST or T wave abnormalities to suggest myocardial ischemia or injury. R wave progression across the precordium was satisfactory. By my interpretation this EKG is non-diagnostic for acute ischemia. Disposition Clinical Impression: Musculoskeletal pain, Atypical chest pain Disposition: HOME SELF-CARE Condition: Good Is patient prescribed a controlled substance at d/c from ED?: No Referrals: Errol Ness [Primary Care Provider] - 1-2 days Time of Disposition: 22:05
--- NOTE | 2021-09-13 21:17 | XR ---
EXAMINATION TYPE: XR knee complete RT DATE OF EXAM: 09/13/2021 COMPARISON: NONE HISTORY: Knee pain TECHNIQUE: 3 views FINDINGS: There is no sign of fracture nor dislocation. Joint spaces are normal. No sign of joint eff usion. IMPRESSION: Negative right knee exam.
--- NOTE | 2021-09-13 21:19 | XR ---
EXAMINATION TYPE: XR shoulder complete RT DATE OF EXAM: 09/13/2021 COMPARISON: NONE HISTORY: Pain TECHNIQUE: 3 views FINDINGS: There is no sign of fracture nor dislocation. Glenohumeral joint is intact. AC joint is int act. No pathologic calcification. There is old right upper posterior healed rib fractures. IMPRESSION: Negative right shoulder exam. No fracture seen.
[2021-09-13 21:20] LABS: Basophils # (A) 0.2 k/uL (0-0.2); Basophils % (A) 2 %; Eosinophils # (A) 0.3 k/uL (0-0.7); Eosinophils % (A) 3 %; HCT 49.7 % (39.0-53.0); HGB 16.5 gm/dL (13.0-17.5); Lymphocytes # (A) 2.5 k/uL (1.0-4.8); Lymphocytes % (A) 24 %; MCH 30.8 pg (25.0-35.0); MCHC 33.2 g/dL (31.0-37.0); MCV 92.9 fL (80.0-100.0); Mean Platelet Volume 7.7; Monocytes # (A) 0.6 k/uL (0-1.0); Monocytes % (A) 6 %; Neutrophils # (A) 6.6 k/uL (1.3-7.7); Neutrophils % (A) 65 %; Platelet Count 318 k/uL (150-450); RBC 5.35 m/uL (4.30-5.90); RDW 12.9 % (11.5-15.5); WBC 10.1 k/uL (3.8-10.6)
--- NOTE | 2021-09-13 21:21 | XR ---
EXAMINATION TYPE: XR chest 2V DATE OF EXAM: 09/13/2021 COMPARISON: 09/09/2021 HISTORY: Chest pain TECHNIQUE: 2 views FINDINGS: Heart is normal. Lungs are clear of infiltrate. No heart failure. There are no hilar masses . Costophrenic angles are clear. IMPRESSION: No active cardiopulmonary disease. Normal heart. No adverse change.
[2021-09-13 21:35] LABS: ALT 42 U/L (4-49); AST 34 U/L (17-59); African American GFR (CKD) >90 (>60 ml/min/1.73 sqM); Albumin 4.7 g/dL (3.5-5.0); Alkaline Phosphatase 98 U/L (38-126); Anion Gap 7 mmol/L; Blood Urea Nitrogen 13 mg/dL (9-20); Calcium 9.6 mg/dL (8.4-10.2); Carbon Dioxide 26 mmol/L (22-30); Chloride 106 mmol/L (98-107); Glucose 99 mg/dL (74-99); Magnesium 2.3 mg/dL (1.6-2.3); Non-African American GFR(CKD) 89 (>60 ml/min/1.73 sqM); Potassium 4.6 mmol/L (3.5-5.1); Prothrombin Time 10.7 sec (9.0-12.0); Sodium 139 mmol/L (137-145); Total Bilirubin 0.7 mg/dL (0.2-1.3); Total Protein 7.4 g/dL (6.3-8.2)
[2021-09-13 22:17] VITALS: BP 108/61; PULSE 74
== END 2021-09-13 22:34 | disposition home or self-care (01) ==
LOC: EC 19:18
DX: R07.89 Other chest pain (principal); I10 Essential (primary) hypertension; J44.9 Chronic obstructive pulmonary disease, unspecified; G40.909 Epilepsy, unspecified, not intractable, without status epilepticus; F32.A Depression, unspecified; F41.9 Anxiety disorder, unspecified; Z87.891 Personal history of nicotine dependence; Z79.51 Long term (current) use of inhaled steroids; Z79.899 Other long term (current) drug therapy
CPT/HCPCS: 36415; 93005; 80053; 83735; 84484; 85025; 85610; 85730; 73030; 73562; 71046; 99285; 96374; 96361; J1885

== ENCOUNTER 2021-09-15 00:56 | Emergency (ER) | payer OTHER ==
[2021-09-15 01:13] VITALS: RESP 16; TEMP 98.3
[2021-09-15] MEDS ORDERED: SODIUM CHLORIDE 0.9% 1,000 ML IV STA (01:29)
[2021-09-15] MEDS ORDERED: FAMOTIDINE 20 MG/2 ML VIAL IV STA ×2 (01:31→04:59)
[2021-09-15] MEDS ORDERED: MAG HYDROX/AL HYDROX/SIMETH 30 ML, HYOSCYAMINE ELIXIR 10 ML, LIDOCAINE VISCOUS 2% 10 ML PO STA ×6 (01:31→04:59)
--- NOTE | 2021-09-15 01:36 | ED ---
General Adult HPI - General Chief complaint: Chest Pain Stated complaint: Chest Pain, Anxiety Time Seen by Provider: 09/15/21 01:24 Source: patient, RN notes reviewed Mode of arrival: EMS - History of Present Illness Initial comments: This is a pleasant 45-year-old male who presents emergent department for recurrent visit. Patient states that he heard and felt a gurgling sensation in his epigastrium and then became anxious. Patient states he felt like he had tingling in both his legs and arms. He states he had a cold feeling. He states his blood pressure shot up but his heart rate reached Normal. He may have had some palpitations. Patient states that he had been treated previously with diazepam for anxiety. Patient states he was seen here on the and he went to his regular doctor yesterday. His position initially stated he was going to give him the diazepam and then came back to the room and told him he was going to put him on Lexapro instead. Patient denying any current chest pain. Patient states other symptoms have seemed to resolve. He does complain of some mild discomfort in the epigastric area. Patient denies any history of peptic ulcer disease. No nausea or vomiting. No hematemesis. No changes in balance or urination. No headache, no fever or chills, no changes in vision or hearing, no sore throat or difficulty with speech, no neck pain, no nausea or vomiting, no changes in urination or bowel movements, no numbness or tingling, no extremity pain, no skin rashes or lesions. - Related Data Home Medications Medication Instructions Recorded Confirmed Albuterol Sulfate [Proair Hfa] 2 puff INHALATION RT-QID PRN 06/20/21 06/20/21 Ergocalciferol [Vitamin D2 (1250 1,250 mcg PO MO 06/20/21 06/20/21 Mcg = 80247 Iu)] Pantoprazole [Protonix] 40 mg PO DAILY 06/20/21 06/20/21 Previous Rx's Medication Instructions Recorded atenoloL [Tenormin] 25 mg PO BID #28 tab 06/17/21 clindamycin HCL [Clindamycin HCl] 300 mg PO Q6HR #40 cap 06/17/21 diazePAM [Valium] 5 mg PO BID #6 tab 06/17/21 diazePAM [Valium] 10 mg PO Q8H PRN 3 Days #9 tab 04/05/22 LORazepam [Ativan] 0.5 mg PO DAILY PRN 3 Days #3 tab 09/09/21 predniSONE [Deltasone] 40 mg PO DAILY 5 Days #10 tab 09/09/21 Allergies Allergy/AdvReac Type Severity Reaction Status Date / Time Penicillins Allergy Rash/Hives Verified 09/10/21 00:00 codeine AdvReac Hallucinati Verified 09/10/21 00:00 ons hydroxyzine [From Vistaril] AdvReac Seizures Verified 09/10/21 00:00 Review of Systems ROS Statement: Those systems with pertinent positive or pertinent negative responses have been documented in the HPI. ROS Other: All systems not noted in ROS Statement are negative. Past Medical History Past Medical History: Asthma, COPD, Hypertension, Seizure Disorder Additional Past Medical History / Comment(s): tooth abscess History of Any Multi-Drug Resistant Organisms: None Reported Past Surgical History: No Surgical Hx Reported, Hernia Repair Past Psychological History: No Psychological Hx Reported, Anxiety, Depression Smoking Status: Former smoker, Vaper Past Alcohol Use History: None Reported Past Drug Use History: None Reported General Exam - General Exam Comments Initial Comments: Mildly anxious appearing 45-year-old male in minimal distress. Patient does not appear to be ill or toxic. Cranial nerves II through XII are intact General appearance: alert, in no apparent distress, anxious Head exam: Present: atraumatic, normocephalic, normal inspection Eye exam: Present: normal appearance, PERRL, EOMI. Absent: scleral icterus, conjunctival injection, periorbital swelling ENT exam: Present: normal exam, mucous membranes moist, TM's normal bilaterally, normal external ear exam Neck exam: Present: normal inspection, full ROM. Absent: tenderness, meningismus, lymphadenopathy Respiratory exam: Present: normal lung sounds bilaterally, chest wall tenderness. Absent: respiratory distress, wheezes, rales, rhonchi, stridor, accessory muscle use, decreased breath sounds, prolonged expiratory Cardiovascular Exam: Present: regular rate, normal rhythm, normal heart sounds. Absent: systolic murmur, diastolic murmur, rubs, gallop, clicks GI/Abdominal exam: Present: soft, tenderness, normal bowel sounds. Absent: distended, guarding, rebound, rigid Extremities exam: Present: normal inspection, full ROM, normal capillary refill. Absent: tenderness, pedal edema, joint swelling, calf tenderness Back exam: Present: normal inspection Neurological exam: Present: alert, oriented X3, CN II-XII intact Psychiatric exam: Present: normal affect, normal mood Skin exam: Present: warm, dry, intact, normal color. Absent: rash Course Vital Signs 09/15/21 01:09 Temperature 98.3 F Pulse Rate 72 Respiratory 16 Rate Blood Pressure 125/85 O2 Sat by Pulse 98 Oximetry - Reevaluation(s) Reevaluation #1: 09/15/21 03:40 Medical record is reviewed Symptoms are improved here in the emergency department Patient is informed of results and questions answered Patient in no distress EKG Findings - EKG Comments: EKG Findings:: EKG done at 1:10 AM ED attending physician reveals rate of 76, normal intervals, normal axis, normal QRS morphology, no acute ST or T-wave changes. No change when compared to previous study. Medical Decision Making - Medical Decision Making Symptomology likely related to anxiety. Of course peptic ulcer disease, intra- abdominal/cardiopulmonary etiology is within the differential. Patient is no acute EKG changes. We'll work the patient up for cardiac disease. This does not seem to be consistent with ischemic cardiac pain. Discussed the findings with the patient. All questions answered. Suspect the patient's nausea is mostly related to anxiety. Patient may have some level gastritis. However there was no evidence of bleeding. We'll treat the patient with omeprazole and have her follow-up with his regular physician. I did give 1 dose of anxiety medication. Patient was told to return to the ER for any signs or symptoms worsen. Told to return immediately if any other problems arise. All questions answered. Treatment plan discussed. Patient in agreement Every effort has been made to ensure accuracy of this dictation. However, due to the limitations of electronic medical records and dictation devices, errors in charting still occur. The case was discussed in detail with ED attending physician. Presentation, findings, treatment plan discussed in detail. Certified [employer] Dr. Shepherd - Lab Data Result diagrams: 09/15/21 01:38 09/15/21 01:38 Lab Results 09/15/21 09/15/21 09/15/21 Range/Units 01:38 01:38 01:38 WBC 8.8 (3.8-10.6) k/uL RBC 5.15 (4.30-5.90) m/uL Hgb 16.2 (13.0-17.5) gm/dL Hct 47.4 (39.0-53.0) % MCV 92.1 (80.0-100.0) fL MCH 31.4 (25.0-35.0) pg MCHC 34.2 (31.0-37.0) g/dL RDW 13.4 (11.5-15.5) % Plt Count 314 (150-450) k/uL MPV 7.8 Neutrophils % 53 % Lymphocytes % 34 % Monocytes % 6 % Eosinophils % 4 % Basophils % 1 % Neutrophils # 4.7 (1.3-7.7) k/uL Lymphocytes # 3.0 (1.0-4.8) k/uL Monocytes # 0.5 (0-1.0) k/uL Eosinophils # 0.3 (0-0.7) k/uL Basophils # 0.1 (0-0.2) k/uL Sodium 137 (137-145) mmol/L Potassium 4.3 (3.5-5.1) mmol/L Chloride 108 H (98-107) mmol/L Carbon Dioxide 21 L (22-30) mmol/L Anion Gap 8 mmol/L BUN 13 (9-20) mg/dL Creatinine 0.90 (0.66-1.25) mg/dL Est GFR (CKD-EPI)AfAm >90 (>60 ml/min/1.73 sqM) Est GFR (CKD-EPI)NonAf >90 (>60 ml/min/1.73 sqM) Glucose 99 (74-99) mg/dL Calcium 8.9 (8.4-10.2) mg/dL Magnesium 2.2 (1.6-2.3) mg/dL Total Bilirubin 0.6 (0.2-1.3) mg/dL AST 32 (17-59) U/L ALT 39 (4-49) U/L Alkaline Phosphatase 89 (38-126) U/L Troponin I <0.012 (0.000-0.034) ng/mL Total Protein 6.9 (6.3-8.2) g/dL Albumin 4.4 (3.5-5.0) g/dL Lipase 122 (23-300) U/L Disposition Clinical Impression: Gastritis, Anxiety Disposition: HOME SELF-CARE Condition: Stable Instructions (If sedation given, give patient instructions): Gastritis (ED), Anxiety (ED) Additional Instructions: Follow-up with your regular physician as directed. Return to the ER immediately if any symptoms worsen, new symptoms arise, or any other problems develop. Is patient prescribed a controlled substance at d/c from ED?: No Referrals: Errol Ness [Primary Care Provider] - 1-2 days Time of Disposition: 03:42
[2021-09-15 02:11] LABS: Basophils # (A) 0.1 k/uL (0-0.2); Basophils % (A) 1 %; Eosinophils # (A) 0.3 k/uL (0-0.7); Eosinophils % (A) 4 %; HCT 47.4 % (39.0-53.0); HGB 16.2 gm/dL (13.0-17.5); Lymphocytes % (A) 34 %; MCH 31.4 pg (25.0-35.0); MCHC 34.2 g/dL (31.0-37.0); MCV 92.1 fL (80.0-100.0); Mean Platelet Volume 7.8; Monocytes # (A) 0.5 k/uL (0-1.0); Monocytes % (A) 6 %; Neutrophils # (A) 4.7 k/uL (1.3-7.7); Neutrophils % (A) 53 %; Platelet Count 314 k/uL (150-450); RBC 5.15 m/uL (4.30-5.90); RDW 13.4 % (11.5-15.5); WBC 8.8 k/uL (3.8-10.6)
--- NOTE | 2021-09-15 02:38 | XR ---
EXAM: XR Abdomen, 2 Views and XR Chest, 1 View CLINICAL HISTORY: ITS.REASON XR Reason: Epigastric discomfort TECHNIQUE: Frontal view of the chest, frontal view of the abdomen/pelvis and upright or decubitus view of the abdomen. COMPARISON: No relevant prior studies available. FINDINGS: Lungs: No focal airspace consolidation. Pleural space: Unremarkable. No pneumothorax. Heart: Prominent epicardial fat-pad noted adjacent to the left heart border. No cardiomegaly. Mediastinum: Unremarkable. Intraperitoneal space: No free air. Gastrointestinal tract: Unremarkable. No dilation. Bones/joints: Unremarkable. IMPRESSION: 1. Nonspecific, nonobstructive bowel gas pattern. No pneumoperitoneum. No significant stool burden. 2. No acute cardiopulmonary process.
[2021-09-15 03:26] LABS: ALT 39 U/L (4-49); AST 32 U/L (17-59); African American GFR (CKD) >90 (>60 ml/min/1.73 sqM); Albumin 4.4 g/dL (3.5-5.0); Alkaline Phosphatase 89 U/L (38-126); Anion Gap 8 mmol/L; Blood Urea Nitrogen 13 mg/dL (9-20); Calcium 8.9 mg/dL (8.4-10.2); Carbon Dioxide 21 mmol/L (22-30); Chloride 108 mmol/L (98-107); Glucose 99 mg/dL (74-99); Lipase 122 U/L (23-300); Magnesium 2.2 mg/dL (1.6-2.3); Non-African American GFR(CKD) >90 (>60 ml/min/1.73 sqM); Potassium 4.3 mmol/L (3.5-5.1); Sodium 137 mmol/L (137-145); Total Bilirubin 0.6 mg/dL (0.2-1.3); Total Protein 6.9 g/dL (6.3-8.2)
[2021-09-15] MEDS ORDERED: diazePAM 5 MG TAB PO STA (03:40)
[2021-09-15 05:09] VITALS: BP 112/84; PULSE 75
== END 2021-09-15 05:11 | disposition home or self-care (01) ==
LOC: EC 00:56
DX: K29.70 Gastritis, unspecified, without bleeding (principal); F41.9 Anxiety disorder, unspecified; J44.9 Chronic obstructive pulmonary disease, unspecified; I10 Essential (primary) hypertension; Z87.891 Personal history of nicotine dependence; Z88.0 Allergy status to penicillin; Z88.5 Allergy status to narcotic agent; Z88.8 Allergy status to other drugs, medicaments and biological substances
CPT/HCPCS: 36415; 74022; 80053; 83690; 83735; 84484; 85025; 93005; 96374; 99285

== ENCOUNTER 2021-09-16 00:22 | Emergency (ER) | payer OTHER ==
[2021-09-16 00:30] VITALS: TEMP 98.5
[2021-09-16] MEDS ORDERED: DIAZEPAM 5 MG/ML 2 ML INJ IVP STA (00:48)
[2021-09-16] MEDS ORDERED: SODIUM CHLORIDE 0.9% 1,000 ML IV STA (00:48)
--- NOTE | 2021-09-16 00:49 | ED ---
General Adult HPI - General Chief complaint: Seizure Stated complaint: Possible Seizure Time Seen by Provider: 09/16/21 00:31 Source: patient, RN notes reviewed Mode of arrival: EMS Limitations: no limitations - History of Present Illness Initial comments: Patient comes to the emergency stating that he had a seizure at home. Patient states he started having an aura in which she saw some squiggly an orange colored lines in his field of vision. Patient states she then started shaking all over his body. Patient states his heart rate and blood pressure jumped up. He states this is when he called EMS. Patient recalls this entire event. Patient states he has had these types of seizures before which was controlled with only diazepam. Patient has previously seen Dr. Bonilla and had an EEG about 6 years ago. Patient states she was never put on seizure medications other than the diazepam. As stated yesterday, patient has been out of the diazepam for 2 months. Patient states his last seizure was a few months ago. Patient saw his regular physician yesterday and was given Lexapro. No headache, no fever or chills, no changes in vision or hearing, no sore throat or difficulty with speech, no neck pain, no chest pain or shortness of breath, no abdominal pain, no nausea or vomiting, no changes in urination or bowel mo vements, no numbness or tingling, no extremity pain, no skin rashes or lesions. - Related Data Home Medications Medication Instructions Recorded Confirmed Albuterol Sulfate [Proair Hfa] 2 puff INHALATION RT-QID PRN 06/20/21 06/20/21 Ergocalciferol [Vitamin D2 (1250 1,250 mcg PO MO 06/20/21 06/20/21 Mcg = 31966 Iu)] Pantoprazole [Protonix] 40 mg PO DAILY 06/20/21 06/20/21 Previous Rx's Medication Instructions Recorded atenoloL [Tenormin] 25 mg PO BID #28 tab 06/17/21 clindamycin HCL [Clindamycin HCl] 300 mg PO Q6HR #40 cap 06/17/21 diazePAM [Valium] 5 mg PO BID #6 tab 06/17/21 diazePAM [Valium] 10 mg PO Q8H PRN 3 Days #9 tab 06/22/21 LORazepam [Ativan] 0.5 mg PO DAILY PRN 3 Days #3 tab 09/09/21 predniSONE [Deltasone] 40 mg PO DAILY 5 Days #10 tab 09/09/21 Omeprazole [PriLOSEC] 20 mg PO DAILY #30 cap 09/15/21 busPIRone HCl [Buspar] 10 mg PO BID PRN #20 tab 09/16/21 Allergies Allergy/AdvReac Type Severity Reaction Status Date / Time Penicillins Allergy Rash/Hives Verified 09/10/21 00:00 codeine AdvReac Hallucinati Verified 09/10/21 00:00 ons hydroxyzine [From Vistaril] AdvReac Seizures Verified 09/10/21 00:00 Review of Systems ROS Statement: Those systems with pertinent positive or pertinent negative responses have been documented in the HPI. ROS Other: All systems not noted in ROS Statement are negative. Past Medical History Past Medical History: Asthma, COPD, Hypertension, Seizure Disorder Additional Past Medical History / Comment(s): tooth abscess History of Any Multi-Drug Resistant Organisms: None Reported Past Surgical History: No Surgical Hx Reported, Hernia Repair Past Psychological History: No Psychological Hx Reported, Anxiety, Depression Smoking Status: Former smoker, Vaper Past Alcohol Use History: None Reported Past Drug Use History: None Reported General Exam Limitations: no limitations General appearance: alert, in no apparent distress Head exam: Present: atraumatic, normocephalic, normal inspection Eye exam: Present: normal appearance, PERRL, EOMI. Absent: scleral icterus, conjunctival injection, periorbital swelling ENT exam: Present: normal exam, mucous membranes moist Neck exam: Present: normal inspection, full ROM. Absent: tenderness, mening ismus, lymphadenopathy Respiratory exam: Present: normal lung sounds bilaterally. Absent: respiratory distress, wheezes, rales, rhonchi, stridor Cardiovascular Exam: Present: regular rate, normal rhythm, normal heart sounds. Absent: systolic murmur, diastolic murmur, rubs, gallop, clicks GI/Abdominal exam: Present: soft, normal bowel sounds. Absent: distended, tenderness, guarding, rebound, rigid Extremities exam: Present: normal inspection, full ROM, normal capillary refill. Absent: tenderness, pedal edema, joint swelling, calf tenderness Back exam: Present: normal inspection Neurological exam: Present: alert, oriented X3, CN II-XII intact Expanded Patient oriented to: Present: person, place, time Speech: Present: fluid speech Cranial nerves: EOM's Intact: Normal, Gag Reflex: Normal, Tongue Deviation: Normal, Nystagmus: Normal, Facial Sensation: Normal, Facial Palsy with Forehead Movement: Normal, Facial Palsy without Forehead Movement: Normal Cerebellar function: Finger to Nose: Normal Upper motor neuron: Phillip Neglect: Normal, Pronator Drift: Normal, Babinski Sign: Normal, Sensory Extinction: Normal Motor strength exam: RUE: 5, LUE: 5, RLE: 5, LLE: 5 Eye Response: (4) open spontaneously Motor Response: (6) obeys commands Verbal Response: (5) oriented Venkatesh Total: 15 Psychiatric exam: Present: normal affect, normal mood Skin exam: Present: warm, dry, intact, normal color. Absent: rash Course Vital Signs 09/16/21 00:24 Temperature 98.5 F Pulse Rate 64 Respiratory 16 Rate Blood Pressure 121/77 O2 Sat by Pulse 96 Oximetry - Reevaluation(s) Reevaluation #1: 09/16/21 02:17 Medical record is reviewed Symptoms are improved here in the emergency department Patient is informed of results and questions answered Patient in no distress Medical Decision Making - Medical Decision Making Patient has no seizure activity here in the ER. Patient recalls the entire event. I suspect the patient symptomology likely is related to anxiety. Patient has no suicidal or homicidal ideation. Patient just started Lexapro yesterday. We'll give the patient follow-up with his regular physician tomorrow. Patient should also follow-up with a neurologist. Patient previously has seen Dr. Bonilla. I did offer EPS evaluation as patient seems to be suffering from anxiety. Certainly this could be some sort of atypical seizure activity. However, patient had an EEG 6 years ago and was never placed on antiseizure medication other than the diazepam which she apparently took for anxiety. Patient is been off of this medication for 2 months. Patient should not be undergoing withdrawal symptoms at this point. We'll try the patient on buspirone 10 mg twice a day when necessary. Discussed treatment plan with the patient. He concurs with this. Patient in no distress at discharge. Neurologically intact. Alert and oriented 4. Of course no driving or operating vehicles until clearance by the regular physician with the neurologist. The case was discussed in detail with ED attending physician. Presentation, findings, treatment plan discussed in detail. Patient was told to return to the ER for any signs or symptoms worsen. Told to return immediately if any other problems arise. All questions answered. Treatment plan discussed. Patient in agreement Every effort has been made to ensure accuracy of this dictation. However, due to the limitations of electronic medical records and dictation devices, errors in charting still occur. [employer] Administrator Dr. Shepherd - Lab Data Result diagrams: 09/16/21 01:00 09/16/21 01:00 Lab Results 09/16/21 09/16/21 Range/Units 01:00 01:00 WBC 8.6 (3.8-10.6) k/uL RBC 5.19 (4.30-5.90) m/uL Hgb 16.1 (13.0-17.5) gm/dL Hct 48.3 (39.0-53.0) % MCV 93.2 (80.0-100.0) fL MCH 31.1 (25.0-35.0) pg MCHC 33.4 (31.0-37.0) g/dL RDW 13.6 (11.5-15.5) % Plt Count 302 (150-450) k/uL MPV 7.9 Neutrophils % 56 % Lymphocytes % 31 % Monocytes % 7 % Eosinophils % 3 % Basophils % 1 % Neutrophils # 4.8 (1.3-7.7) k/uL Lymphocytes # 2.7 (1.0-4.8) k/uL Monocytes # 0.6 (0-1.0) k/uL Eosinophils # 0.3 (0-0.7) k/uL Basophils # 0.1 (0-0.2) k/uL Sodium 138 (137-145) mmol/L Potassium 4.3 (3.5-5.1) mmol/L Chloride 106 (98-107) mmol/L Carbon Dioxide 24 (22-30) mmol/L Anion Gap 8 mmol/L BUN 13 (9-20) mg/dL Creatinine 0.92 (0.66-1.25) mg/dL Est GFR (CKD-EPI)AfAm >90 (>60 ml/min/1.73 sqM) Est GFR (CKD-EPI)NonAf >90 (>60 ml/min/1.73 sqM) Glucose 96 (74-99) mg/dL Calcium 8.9 (8.4-10.2) mg/dL Magnesium 2.3 (1.6-2.3) mg/dL Total Bilirubin 0.7 (0.2-1.3) mg/dL AST 36 (17-59) U/L ALT 38 (4-49) U/L Alkaline Phosphatase 87 (38-126) U/L Total Protein 7.1 (6.3-8.2) g/dL Albumin 4.5 (3.5-5.0) g/dL Serum Alcohol <10 mg/dL Disposition Clinical Impression: Anxiety, Seizure-like activity Disposition: HOME SELF-CARE Condition: Good Instructions (If sedation given, give patient instructions): Recurrent Seizures in Adults (ED), Anxiety (ED) Additional Instructions: No driving or operating machinery until cleared by the neurologist. Follow-up with your regular physician as directed. Return to the ER immediately if any symptoms worsen, new symptoms arise, or any other problems develop. Prescriptions: busPIRone HCl [Buspar] 10 mg PO BID PRN #20 tab PRN Reason: Anxiety Is patient prescribed a controlled substance at d/c from ED?: No Referrals: Errol Ness [Primary Care Provider] - 09/16/21 8:00 am Yordan Bonilla MD [REFERRING] - 10/06/21
[2021-09-16 01:34] LABS: Basophils # (A) 0.1 k/uL (0-0.2); Basophils % (A) 1 %; Eosinophils # (A) 0.3 k/uL (0-0.7); Eosinophils % (A) 3 %; HCT 48.3 % (39.0-53.0); HGB 16.1 gm/dL (13.0-17.5); Lymphocytes # (A) 2.7 k/uL (1.0-4.8); Lymphocytes % (A) 31 %; MCH 31.1 pg (25.0-35.0); MCHC 33.4 g/dL (31.0-37.0); MCV 93.2 fL (80.0-100.0); Mean Platelet Volume 7.9; Monocytes # (A) 0.6 k/uL (0-1.0); Monocytes % (A) 7 %; Neutrophils # (A) 4.8 k/uL (1.3-7.7); Neutrophils % (A) 56 %; Platelet Count 302 k/uL (150-450); RBC 5.19 m/uL (4.30-5.90); RDW 13.6 % (11.5-15.5); WBC 8.6 k/uL (3.8-10.6)
[2021-09-16 01:42] LABS: ALT 38 U/L (4-49); African American GFR (CKD) >90 (>60 ml/min/1.73 sqM); Albumin 4.5 g/dL (3.5-5.0); Alcohol <10 mg/dL; Anion Gap 8 mmol/L; Blood Urea Nitrogen 13 mg/dL (9-20); Calcium 8.9 mg/dL (8.4-10.2); Carbon Dioxide 24 mmol/L (22-30); Chloride 106 mmol/L (98-107); Glucose 96 mg/dL (74-99); Non-African American GFR(CKD) >90 (>60 ml/min/1.73 sqM); Sodium 138 mmol/L (137-145); Total Bilirubin 0.7 mg/dL (0.2-1.3); Total Protein 7.1 g/dL (6.3-8.2)
[2021-09-16 01:53] LABS: AST 36 U/L (17-59); Alkaline Phosphatase 87 U/L (38-126); Magnesium 2.3 mg/dL (1.6-2.3); Potassium 4.3 mmol/L (3.5-5.1)
[2021-09-16 02:35] LABS: Amphetamine Screen,Urine Not Detected (NotDetected); Barbiturate Screen,Urine Not Detected (NotDetected); Benzodiazepines Screen,Urine Detected (NotDetected); Cocaine Screen,Urine Not Detected (NotDetected); Methadone Screen, Urine Not Detected (NotDetected); Opiate Screen,Urine Not Detected (NotDetected); Oxycodone Screen, Urine Not Detected (NotDetected); Phencyclidine Screen,Urine Not Detected (NotDetected); Tricyclic Antidepressant,Urine Not Detected (NotDetected); Urn Cannabinoid Scrn Not Detected (NotDetected)
[2021-09-16 02:57] VITALS: BP 102/70; PULSE 77; RESP 17
== END 2021-09-16 02:55 | disposition home or self-care (01) ==
LOC: EC 00:22
DX: F41.9 Anxiety disorder, unspecified (principal); R56.9 Unspecified convulsions; J44.9 Chronic obstructive pulmonary disease, unspecified; I10 Essential (primary) hypertension; Z87.891 Personal history of nicotine dependence; Z88.0 Allergy status to penicillin; Z88.5 Allergy status to narcotic agent; Z88.8 Allergy status to other drugs, medicaments and biological substances
CPT/HCPCS: 36415; 80053; 83735; 85025; 80306; 99284; 96374; 96361; G0480; J3360; 80320

== ENCOUNTER 2021-09-17 21:03 | Emergency (ER) | payer OTHER ==
[2021-09-17 21:31] VITALS: RESP 16; TEMP 98.7
[2021-09-17] MEDS ORDERED: KETOROLAC 15 MG/ML 1 ML VIAL IVP STA (21:41)
[2021-09-17] MEDS ORDERED: SODIUM CHLORIDE 0.9% 1,000 ML IV STA (21:41)
[2021-09-17] MEDS ORDERED: ORPHENADRINE 30 MG/ML 2 ML VIAL IM STA (21:41)
[2021-09-17] MEDS ORDERED: METOCLOPRAMIDE 5 MG/ML 2 ML VIAL IVP STA (21:41)
--- NOTE | 2021-09-17 23:31 | ED ---
Headache HPI - General Chief Complaint: Headache Stated Complaint: Weakness, Dizziness Time Seen by Provider: 09/17/21 21:23 Mode of arrival: EMS Limitations: no limitations - History of Present Illness Initial Comments: Patient is a 45-year-old male who presents to the emergency department with a chief complaint of headache, neck pain, and back pain. This is patient's sixth visit to the emergency department in the past 8 days. Patient states symptoms started last night. Describes the headache as a pressure behind his eyes. Patient also reports left-sided neck pain and left-sided lower back pain. Denies injury. States he has history of lower back pain in this region. Denies pain, numbness, and tingling of the legs, groin, and buttock region. Denies loss of bowel or bladder function. Patient states he took Tylenol this morning with no relief. He denies fever, chills, upper respiratory symptoms, sore throat, chest pain, abdominal pain, nausea, vomiting. Denies recent sick contacts. MD Complaint: headache - Related Data Home Medications Medication Instructions Recorded Confirmed Albuterol Sulfate [Proair Hfa] 2 puff INHALATION RT-QID PRN 06/20/21 06/20/21 Ergocalciferol [Vitamin D2 (1250 1,250 mcg PO MO 06/20/21 06/20/21 Mcg = 02949 Iu)] Pantoprazole [Protonix] 40 mg PO DAILY 06/20/21 06/20/21 Previous Rx's Medication Instructions Recorded atenoloL [Tenormin] 25 mg PO BID #28 tab 06/17/21 clindamycin HCL [Clindamycin HCl] 300 mg PO Q6HR #40 cap 06/17/21 diazePAM [Valium] 5 mg PO BID #6 tab 06/17/21 diazePAM [Valium] 10 mg PO Q8H PRN 3 Days #9 tab 06/22/21 LORazepam [Ativan] 0.5 mg PO DAILY PRN 3 Days #3 tab 09/09/21 predniSONE [Deltasone] 40 mg PO DAILY 5 Days #10 tab 09/09/21 Omeprazole [PriLOSEC] 20 mg PO DAILY #30 cap 09/15/21 busPIRone HCl [Buspar] 10 mg PO BID PRN #20 tab 09/16/21 Cyclobenzaprine [Flexeril] 10 mg PO TID PRN #15 tab 09/17/21 Allergies Allergy/AdvReac Type Severity Reaction Status Date / Time Penicillins Allergy Rash/Hives Verified 09/10/21 00:00 codeine AdvReac Hallucinati Verified 09/10/21 00:00 ons hydroxyzine [From Vistaril] AdvReac Seizures Verified 09/10/21 00:00 Review of Systems ROS Statement: Those systems with pertinent positive or pertinent negative responses have been documented in the HPI. ROS Other: All systems not noted in ROS Statement are negative. Past Medical History Past Medical History: Asthma, COPD, Hypertension, Seizure Disorder Additional Past Medical History / Comment(s): tooth abscess History of Any Multi-Drug Resistant Organisms: None Reported Past Surgical History: No Surgical Hx Reported, Hernia Repair Past Psychological History: No Psychological Hx Reported, Anxiety, Depression Smoking Status: Former smoker, Vaper Past Alcohol Use History: None Reported Past Drug Use History: None Reported General Exam Limitations: no limitations Head exam: Present: atraumatic, normocephalic, normal inspection Eye exam: Present: normal appearance, PERRL, EOMI. Absent: scleral icterus, conjunctival injection, periorbital swelling Neck exam: Present: normal inspection, tenderness (left paravertebral), full ROM. Absent: meningismus, lymphadenopathy Respiratory exam: Present: normal lung sounds bilaterally. Absent: respiratory distress, wheezes, rales, rhonchi, stridor Cardiovascular Exam: Present: regular rate, normal rhythm, normal heart sounds. Absent: systolic murmur, diastolic murmur, rubs, gallop, clicks Back exam: Present: normal inspection, full ROM. Absent: tenderness, paraspinal tenderness, vertebral tenderness, rash noted Neurological exam: Present: alert, oriented X3, CN II-XII intact Psychiatric exam: Present: normal affect, normal mood Skin exam: Present: warm, dry, intact, normal color. Absent: rash Course Vital Signs 09/17/21 09/17/21 21:21 23:00 Temperature 98.7 F Pulse Rate 78 66 Respiratory 16 16 Rate Blood Pressure 112/75 106/79 O2 Sat by Pulse 96 100 Oximetry Medical Decision Making - Medical Decision Making This is a 45-year-old male who presents with headache, neck pain,and back pain. Thorough history and examination were performed. No saddle anesthesia. No loss of bowel or bladder function. There is mild tenderness to palpation of the left paravertebral neck muscles. No tenderness to palpation of the lumbar spine and paravertebral muscles. Patient given migraine cocktail and Norflex. On reevaluation patient states his pain has improved markedly. COVID-19 and influenza A/B are not detected. He will be discharged home with Flexeril. He is instructed to follow-up with his primary care provider in one to 2 days. Return parameters discussed. Patient verbalizes understanding and is agreeable to this plan. Dr. Rosales is my attending. - Lab Data Lab Results 09/17/21 09/17/21 Range/Units 21:42 21:42 Coronavirus (PCR) Not Detected (Not Detectd) Influenza Type A RNA Not Detected (Not Detectd) Influenza Type B (PCR) Not Detected (Not Detectd) Disposition Clinical Impression: Headache, Neck pain, Back pain Disposition: HOME SELF-CARE Condition: Good Instructions (If sedation given, give patient instructions): Acute Headache (ED), Back Pain (ED), Neck Pain (ED) Additional Instructions: Take Flexeril as prescribed. Do not drink or operate machinery while taking Flexeril as it can make you sleepy. Follow-up with primary care provider in one to 2 days. Return to the emergency department if you experience new, concerning, or worsening symptoms. Prescriptions: Cyclobenzaprine [Flexeril] 10 mg PO TID PRN #15 tab PRN Reason: Muscle Spasm Is patient prescribed a controlled substance at d/c from ED?: No Referrals: Errol Ness [Primary Care Provider] - 1-2 days Time of Disposition: 23:34
[2021-09-17 23:54] VITALS: BP 106/79; PULSE 66
== END 2021-09-17 23:56 | disposition home or self-care (01) ==
LOC: EC 21:03
DX: R51.9 Headache, unspecified (principal); M54.2 Cervicalgia; M54.9 Dorsalgia, unspecified; J44.9 Chronic obstructive pulmonary disease, unspecified; I10 Essential (primary) hypertension; Z87.891 Personal history of nicotine dependence; Z20.822 Contact with and (suspected) exposure to COVID-19
CPT/HCPCS: 87502; 87635; 99284; 96374; 96375; 96372; J2360; J2765; J1885

== ENCOUNTER 2021-12-02 21:43 | Emergency (ER) | payer OTHER ==
[2021-12-02 21:53] VITALS: RESP 16; TEMP 98.1
--- NOTE | 2021-12-02 22:15 | ED ---
General Adult HPI - General Chief complaint: Chest Pain Stated complaint: Chest Pain Time Seen by Provider: 12/02/21 21:47 Source: patient, EMS, RN notes reviewed, old records reviewed Mode of arrival: EMS Limitations: no limitations - History of Present Illness Initial comments: 46-year-old male with cough, congestion, bilateral chest pain. Pain worse with cough and deep breathing. He's had cough productive of yellow sputum as well as a sore throat and nasal congestion. No vomiting. No fever. - Related Data Home Medications Medication Instructions Recorded Confirmed Albuterol Sulfate [Proair Hfa] 2 puff INHALATION RT-QID PRN 06/20/21 06/20/21 Ergocalciferol [Vitamin D2 (1250 1,250 mcg PO MO 06/20/21 06/20/21 Mcg = 48698 Iu)] Pantoprazole [Protonix] 40 mg PO DAILY 06/20/21 06/20/21 Previous Rx's Medication Instructions Recorded atenoloL [Tenormin] 25 mg PO BID #28 tab 06/17/21 clindamycin HCL [Clindamycin HCl] 300 mg PO Q6HR #40 cap 06/17/21 diazePAM [Valium] 5 mg PO BID #6 tab 06/17/21 diazePAM [Valium] 10 mg PO Q8H PRN 3 Days #9 tab 06/22/21 LORazepam [Ativan] 0.5 mg PO DAILY PRN 3 Days #3 tab 09/09/21 predniSONE [Deltasone] 40 mg PO DAILY 5 Days #10 tab 09/09/21 Omeprazole [PriLOSEC] 20 mg PO DAILY #30 cap 09/15/21 busPIRone HCl [Buspar] 10 mg PO BID PRN #20 tab 09/16/21 Cyclobenzaprine [Flexeril] 10 mg PO TID PRN #15 tab 09/17/21 diazePAM [Valium] 10 mg PO HS 3 Days #3 tab 12/03/21 Allergies Allergy/AdvReac Type Severity Reaction Status Date / Time Penicillins Allergy Rash/Hives Verified 09/10/21 00:00 codeine AdvReac Hallucinati Verified 09/10/21 00:00 ons hydroxyzine [From Vistaril] AdvReac Seizures Verified 09/10/21 00:00 Review of Systems ROS Statement: Those systems with pertinent positive or pertinent negative responses have been documented in the HPI. ROS Other: All systems not noted in ROS Statement are negative. Past Medical History Past Medical History: Asthma, COPD, Hypertension, Seizure Disorder Additional Past Medical History / Comment(s): tooth abscess History of Any Multi-Drug Resistant Organisms: None Reported Past Surgical History: No Surgical Hx Reported, Hernia Repair Past Psychological History: No Psychological Hx Reported, Anxiety, Depression Smoking Status: Former smoker, Vaper Past Alcohol Use History: None Reported Past Drug Use History: None Reported General Exam Limitations: no limitations General appearance: alert, in no apparent distress Head exam: Present: atraumatic, normocephalic Eye exam: Present: normal appearance, PERRL ENT exam: Present: normal exam Neck exam: Present: normal inspection. Absent: tenderness, meningismus Respiratory exam: Present: normal lung sounds bilaterally. Absent: respiratory distress, wheezes, rhonchi Cardiovascular Exam: Present: regular rate, normal rhythm GI/Abdominal exam: Present: soft. Absent: distended, tenderness, guarding Extremities exam: Present: normal inspection, normal capillary refill Neurological exam: Present: alert, oriented X3, CN II-XII intact. Absent: motor sensory deficit Skin exam: Present: warm, dry, intact. Absent: cyanosis, diaphoretic Course Vital Signs 12/02/21 12/02/21 21:46 21:57 Temperature 98.1 F Pulse Rate 91 Pulse Rate [ 87 Pulse Oximetery ] Respiratory 16 Rate Blood Pressure 116/70 O2 Sat by Pulse 98 Oximetry EKG Findings - EKG Comments: EKG Findings:: EKG: Sinus rhythm rate 79, WV interval 133, QRS duration 92, QTC [address] segment changes. Medical Decision Making - Medical Decision Making 46-YEAR-OLD MALE PRESENTING FOR EVALUATION OFuri SYMPTOMS AND RIGHT LATERAL CHEST PAIN.PATIENT DOES NOT HAVE acs SYMPTOMS. hIS ekg IS SINUS WITHOUT st SEGMENT CHANGES OR t-WAVE ABNORMALITY. cHEST X-RAY IS CLEAR.Covid test is negative. Patient reassured. - Lab Data Lab Results 12/02/21 Range/Units 22:28 Coronavirus (PCR) Not Detected (Not Detectd) Disposition Clinical Impression: Atypical chest pain, URI, acute Disposition: HOME SELF-CARE Condition: Good Instructions (If sedation given, give patient instructions): Upper Respiratory Infection (ED) Prescriptions: diazePAM [Valium] 10 mg PO HS 3 Days #3 tab Is patient prescribed a controlled substance at d/c from ED?: No Referrals: Errol Ness [STAFF PHYSICIAN] - 1-2 days Jony Barakat III, MD [STAFF PHYSICIAN] - 1-2 days Time of Disposition: 00:11
--- NOTE | 2021-12-02 22:42 | XR ---
EXAMINATION TYPE: XR chest 2V DATE OF EXAM: 12/02/2021 COMPARISON: 09/15/2021 HISTORY: Cough TECHNIQUE: 2 views FINDINGS: Heart and mediastinum are normal. Lungs are clear. Diaphragm is normal. Bony thorax appears normal. IMPRESSION: Normal chest. No change.
[2021-12-02] MEDS ORDERED: KETOROLAC 15 MG/ML 1 ML VIAL IM STA (23:04)
[2021-12-03 00:30] VITALS: BP 119/86; PULSE 91
== END 2021-12-03 00:30 | disposition home or self-care (01) ==
LOC: EC 21:43
DX: R07.89 Other chest pain (principal); J06.9 Acute upper respiratory infection, unspecified; J45.909 Unspecified asthma, uncomplicated; J44.9 Chronic obstructive pulmonary disease, unspecified; F17.290 Nicotine dependence, other tobacco product, uncomplicated; Z88.0 Allergy status to penicillin; Z88.5 Allergy status to narcotic agent; Z88.6 Allergy status to analgesic agent; Z79.51 Long term (current) use of inhaled steroids; Z79.899 Other long term (current) drug therapy; Z20.822 Contact with and (suspected) exposure to COVID-19
CPT/HCPCS: 93005; 87635; 71046; 99285; 96372; J1885

== ENCOUNTER 2021-12-03 03:02 | Emergency (ER) | payer OTHER ==
[2021-12-03 03:10] VITALS: RESP 16; TEMP 99.2
[2021-12-03 03:30] LABS: Basophils # (A) 0.1 k/uL (0-0.2); Basophils % (A) 1 %; Eosinophils # (A) 0.3 k/uL (0-0.7); Eosinophils % (A) 3 %; HCT 47.2 % (39.0-53.0); HGB 15.6 gm/dL (13.0-17.5); Lymphocytes # (A) 3.2 k/uL (1.0-4.8); Lymphocytes % (A) 32 %; MCV 90.8 fL (80.0-100.0); Mean Platelet Volume 7.8; Monocytes # (A) 0.6 k/uL (0-1.0); Monocytes % (A) 6 %; Neutrophils # (A) 5.8 k/uL (1.3-7.7); Neutrophils % (A) 57 %; Platelet Count 277 k/uL (150-450); WBC 10.2 k/uL (3.8-10.6)
[2021-12-03 03:50] LABS: ALT 33 U/L (4-49); AST 31 U/L (17-59); African American GFR (CKD) >90 (>60 ml/min/1.73 sqM); Albumin 4.5 g/dL (3.5-5.0); Alkaline Phosphatase 106 U/L (38-126); Anion Gap 13 mmol/L; Blood Urea Nitrogen 15 mg/dL (9-20); Calcium 9.3 mg/dL (8.4-10.2); Carbon Dioxide 21 mmol/L (22-30); Chloride 103 mmol/L (98-107); Glucose 146 mg/dL (74-99); Non-African American GFR(CKD) 86 (>60 ml/min/1.73 sqM); Potassium 3.9 mmol/L (3.5-5.1); Sodium 137 mmol/L (137-145); Total Bilirubin 0.7 mg/dL (0.2-1.3); Total Protein 6.9 g/dL (6.3-8.2)
--- NOTE | 2021-12-03 04:13 | ED ---
General Adult HPI - General Chief complaint: Chest Pain Stated complaint: Chest Pain Time Seen by Provider: 12/03/21 03:06 Source: patient, RN notes reviewed, old records reviewed Mode of arrival: EMS - History of Present Illness Initial comments: 26-year-old male presents for reevaluation of palpitations. patient had been discharged and went home when he went home he felt his heart racing. He became anxious. He does have a history of anxiety and is not currently on any med ication for anxiety because his primary care physician is unavailable.no prior history of CAD, no history of DVT or PE, - Related Data Home Medications Medication Instructions Recorded Confirmed Albuterol Sulfate [Proair Hfa] 2 puff INHALATION RT-QID PRN 06/20/21 06/20/21 Ergocalciferol [Vitamin D2 (1250 1,250 mcg PO MO 06/20/21 06/20/21 Mcg = [id number] Iu)] Pantoprazole [Protonix] 40 mg PO DAILY 06/20/21 06/20/21 Previous Rx's Medication Instructions Recorded atenoloL [Tenormin] 25 mg PO BID #28 tab 06/17/21 clindamycin HCL [Clindamycin HCl] 300 mg PO Q6HR #40 cap 06/17/21 diazePAM [Valium] 5 mg PO BID #6 tab 06/17/21 diazePAM [Valium] 10 mg PO Q8H PRN 3 Days #9 tab 06/22/21 LORazepam [Ativan] 0.5 mg PO DAILY PRN 3 Days #3 tab 09/09/21 predniSONE [Deltasone] 40 mg PO DAILY 5 Days #10 tab 09/09/21 Omeprazole [PriLOSEC] 20 mg PO DAILY #30 cap 09/15/21 busPIRone HCl [Buspar] 10 mg PO BID PRN #20 tab 09/16/21 Cyclobenzaprine [Flexeril] 10 mg PO TID PRN #15 tab 09/17/21 diazePAM [Valium] 10 mg PO HS 3 Days #3 tab 12/03/21 Allergies Allergy/AdvReac Type Severity Reaction Status Date / Time Penicillins Allergy Rash/Hives Verified 09/10/21 00:00 codeine AdvReac Hallucinati Verified 09/10/21 00:00 ons hydroxyzine [From Vistaril] AdvReac Seizures Verified 09/10/21 00:00 Review of Systems ROS Statement: Those systems with pertinent positive or pertinent negative responses have been documented in the HPI. ROS Other: All systems not noted in ROS Statement are negative. Past Medical History Past Medical History: Asthma, COPD, Hypertension, Seizure Disorder Additional Past Medical History / Comment(s): tooth abscess History of Any Multi-Drug Resistant Organisms: None Reported Past Surgical History: No Surgical Hx Reported, Hernia Repair Past Psychological History: No Psychological Hx Reported, Anxiety, Depression Smoking Status: Former smoker, Vaper Past Alcohol Use History: None Reported Past Drug Use History: None Reported General Exam General appearance: alert, in no apparent distress Head exam: Present: atraumatic, normocephalic Eye exam: Present: normal appearance, PERRL ENT exam: Present: mucous membranes dry Neck exam: Present: normal inspection. Absent: tenderness, meningismus Respiratory exam: Present: normal lung sounds bilaterally. Absent: respiratory distress, wheezes Cardiovascular Exam: Present: regular rate, normal rhythm GI/Abdominal exam: Present: soft. Absent: distended, tenderness, guarding Extremities exam: Present: normal inspection, normal capillary refill. Absent: pedal edema Neurological exam: Present: alert, oriented X3, CN II-XII intact. Absent: motor sensory deficit Psychiatric exam: Present: anxious Skin exam: Present: warm, dry, intact. Absent: cyanosis, diaphoretic Course Vital Signs 12/03/21 03:07 Temperature 99.2 F Pulse Rate 105 H Respiratory 16 Rate Blood Pressure 126/78 O2 Sat by Pulse 100 Oximetry EKG Findings - EKG Comments: EKG Findings:: sinus tachycardia with short IL rate of 100 IL interval 117, QRS duration 89, QTC 399. no st elevation Medical Decision Making - Medical Decision Making 46-year-old male with palpitations, anxiety. Patient is in sinus rhythm. Given the second visit I did perform laboratory testing, negative d-dimer, negative troponin. Normal CBC, CMP. - Lab Data Result diagrams: 12/03/21 03:19 12/03/21 03:19 Lab Results 12/03/21 12/03/21 12/03/21 Range/Units 03:19 03:19 03:19 WBC 10.2 (3.8-10.6) k/uL RBC 5.20 (4.30-5.90) m/uL Hgb 15.6 (13.0-17.5) gm/dL Hct 47.2 (39.0-53.0) % MCV 90.8 (80.0-100.0) fL MCH 30.0 (25.0-35.0) pg MCHC 33.0 (31.0-37.0) g/dL RDW 13.0 (11.5-15.5) % Plt Count 277 (150-450) k/uL MPV 7.8 Neutrophils % 57 % Lymphocytes % 32 % Monocytes % 6 % Eosinophils % 3 % Basophils % 1 % Neutrophils # 5.8 (1.3-7.7) k/uL Lymphocytes # 3.2 (1.0-4.8) k/uL Monocytes # 0.6 (0-1.0) k/uL Eosinophils # 0.3 (0-0.7) k/uL Basophils # 0.1 (0-0.2) k/uL D-Dimer (<0.60) mg/L FEU Sodium 137 (137-145) mmol/L Potassium 3.9 (3.5-5.1) mmol/L Chloride 103 (98-107) mmol/L Carbon Dioxide 21 L (22-30) mmol/L Anion Gap 13 mmol/L BUN 15 (9-20) mg/dL Creatinine 1.06 (0.66-1.25) mg/dL Est GFR (CKD-EPI)AfAm >90 (>60 ml/min/1.73 sqM) Est GFR (CKD-EPI)NonAf 86 (>60 ml/min/1.73 sqM) Glucose 146 H (74-99) mg/dL Calcium 9.3 (8.4-10.2) mg/dL Total Bilirubin 0.7 (0.2-1.3) mg/dL AST 31 (17-59) U/L ALT 33 (4-49) U/L Alkaline Phosphatase 106 (38-126) U/L Troponin I <0.012 (0.000-0.034) ng/mL Total Protein 6.9 (6.3-8.2) g/dL Albumin 4.5 (3.5-5.0) g/dL 12/03/21 Range/Units 04:31 WBC (3.8-10.6) k/uL RBC (4.30-5.90) m/uL Hgb (13.0-17.5) gm/dL Hct (39.0-53.0) % MCV (80.0-100.0) fL MCH (25.0-35.0) pg MCHC (31.0-37.0) g/dL RDW (11.5-15.5) % Plt Count (150-450) k/uL MPV Neutrophils % % Lymphocytes % % Monocytes % % Eosinophils % % Basophils % % Neutrophils # (1.3-7.7) k/uL Lymphocytes # (1.0-4.8) k/uL Monocytes # (0-1.0) k/uL Eosinophils # (0-0.7) k/uL Basophils # (0-0.2) k/uL D-Dimer 0.55 (<0.60) mg/L FEU Sodium (137-145) mmol/L Potassium (3.5-5.1) mmol/L Chloride (98-107) mmol/L Carbon Dioxide (22-30) mmol/L Anion Gap mmol/L BUN (9-20) mg/dL Creatinine (0.66-1.25) mg/dL Est GFR (CKD-EPI)AfAm (>60 ml/min/1.73 sqM) Est GFR (CKD-EPI)NonAf (>60 ml/min/1.73 sqM) Glucose (74-99) mg/dL Calcium (8.4-10.2) mg/dL Total Bilirubin (0.2-1.3) mg/dL AST (17-59) U/L ALT (4-49) U/L Alkaline Phosphatase (38-126) U/L Troponin I (0.000-0.034) ng/mL Total Protein (6.3-8.2) g/dL Albumin (3.5-5.0) g/dL Disposition Clinical Impression: Atypical chest pain, Panic attack Disposition: HOME SELF-CARE Condition: Fair Instructions (If sedation given, give patient instructions): Chest Pain (ED), Anxiety (ED) Is patient prescribed a controlled substance at d/c from ED?: No Referrals: None,Stated [Primary Care Provider] - 1-2 days Time of Disposition: 05:15
[2021-12-03] MEDS ORDERED: SODIUM CHLORIDE 0.9% 1,000 ML IV ONE (04:17)
[2021-12-03 05:42] VITALS: BP 120/68; PULSE 75
== END 2021-12-03 05:42 | disposition home or self-care (01) ==
LOC: EC 03:02
DX: R07.89 Other chest pain (principal); F41.0 Panic disorder [episodic paroxysmal anxiety]; J45.909 Unspecified asthma, uncomplicated; J44.9 Chronic obstructive pulmonary disease, unspecified; I10 Essential (primary) hypertension; F17.290 Nicotine dependence, other tobacco product, uncomplicated; Z88.0 Allergy status to penicillin; Z88.5 Allergy status to narcotic agent; Z88.6 Allergy status to analgesic agent; Z79.51 Long term (current) use of inhaled steroids; Z79.899 Other long term (current) drug therapy
CPT/HCPCS: 36415; 80053; 84484; 85025; 85379; 93005; 96360; 99285

== ENCOUNTER 2022-01-02 20:38 | Emergency (ER) | payer OTHER ==
[2022-01-02] MEDS ORDERED: SODIUM CHLORIDE 0.9% 1,000 ML IV STA (20:44)
[2022-01-02 20:52] VITALS: BP 129/91; PULSE 81; RESP 16; TEMP 98.7
[2022-01-02 21:08] LABS: Basophils # (A) 0.1 k/uL (0-0.2); Basophils % (A) 1 %; Eosinophils # (A) 0.4 k/uL (0-0.7); Eosinophils % (A) 4 %; HCT 46.5 % (39.0-53.0); HGB 16.3 gm/dL (13.0-17.5); Lymphocytes # (A) 2.4 k/uL (1.0-4.8); Lymphocytes % (A) 29 %; MCH 31.7 pg (25.0-35.0); MCHC 35.1 g/dL (31.0-37.0); MCV 90.4 fL (80.0-100.0); Mean Platelet Volume 8.3; Monocytes # (A) 0.5 k/uL (0-1.0); Monocytes % (A) 6 %; Neutrophils # (A) 4.7 k/uL (1.3-7.7); Neutrophils % (A) 58 %; Platelet Count 244 k/uL (150-450); RBC 5.15 m/uL (4.30-5.90); WBC 8.1 k/uL (3.8-10.6)
[2022-01-02 21:16] LABS: Partial Thromboplastin Time 26.8 sec (22.0-30.0); Prothrombin Time 10.5 sec (9.0-12.0)
[2022-01-02] MEDS ORDERED: IBUPROFEN 800 MG TAB PO STA (21:36)
[2022-01-02 21:40] LABS: ALT 37 U/L (4-49); AST 30 U/L (17-59); African American GFR (CKD) >90 (>60 ml/min/1.73 sqM); Albumin 4.1 g/dL (3.5-5.0); Alkaline Phosphatase 107 U/L (38-126); Anion Gap 12 mmol/L; Blood Urea Nitrogen 12 mg/dL (9-20); Calcium 9.1 mg/dL (8.4-10.2); Carbon Dioxide 23 mmol/L (22-30); Chloride 104 mmol/L (98-107); Glucose 106 mg/dL (74-99); Non-African American GFR(CKD) >90 (>60 ml/min/1.73 sqM); Potassium 3.9 mmol/L (3.5-5.1); Sodium 139 mmol/L (137-145); Total Bilirubin 0.7 mg/dL (0.2-1.3); Total Protein 6.6 g/dL (6.3-8.2)
--- NOTE | 2022-01-02 22:08 | XR ---
EXAMINATION TYPE: XR chest 2V DATE OF EXAM: 01/02/2022 COMPARISON: 12/02/2021 HISTORY: Cough TECHNIQUE: 2 views FINDINGS: Heart is normal. Lungs are clear of infiltrate. No heart failure. There are no hilar masses . Bony thorax is intact. There is flattening of the diaphragm. IMPRESSION: No active cardiopulmonary disease. No change. There is probably some COPD.
--- NOTE | 2022-01-02 22:21 | ED ---
Chest Pain HPI - General Chief Complaint: Chest Pain Stated Complaint: Chest Pain Time Seen by Provider: 01/02/22 20:42 Source: patient, EMS Mode of arrival: EMS Limitations: no limitations - History of Present Illness Initial Comments: Patient is a 46-year-old male who presents to the emergency department of hypertension and anxiety who presents to the emergency department with a chief complaint of chest pain. Patient states chest pain has been occurring for 2 days on the left side of the chest. Describes it as a constant aching. There are no arm or jaw symptoms. No dizziness, lightheadedness, shortness of breath, abdominal pain, nausea, vomiting. Patient was evaluated in our emergency department on 12/03 for similar concern however at this time it was on the right side of his chest. Acute coronary syndrome was ruled out. Patient had cardiology evaluation on 06/01/21 for chest pain. At this time echocardiogram unremarkable and he was cleared for discharge by cardiology. Patient very anxious that something is wrong with his heart during evaluation. He also expresses concern that he is in withdrawal of Valium. Patient states he took Valium regularly for several years. Does admit to not having a primary care provider to prescribe it to him for the past year. Patient states he was given a prescription of Valium last time he was here and ran out one week ago. Patient reports headache. He denies tremors, seizure, nausea, vomiting. - Related Data Home Medications Medication Instructions Recorded Confirmed Albuterol Sulfate [Proair Hfa] 2 puff INHALATION RT-QID PRN 06/20/21 01/02/22 Tiotropium [place] [Spiriva] 18 mcg INHALATION RT-DAILY 01/02/22 01/02/22 atenoloL [Tenormin] 50 mg PO DAILY 01/02/22 01/02/22 Allergies Allergy/AdvReac Type Severity Reaction Status Date / Time Penicillins Allergy Rash/Hives Verified 01/02/22 22:07 codeine AdvReac Hallucinati Verified 01/02/22 22:07 ons hydroxyzine [From Vistaril] AdvReac Seizures Verified 01/02/22 22:07 Review of Systems ROS Statement: Those systems with pertinent positive or pertinent negative responses have been documented in the HPI. ROS Other: All systems not noted in ROS Statement are negative. EKG Findings - EKG Comments: EKG Findings:: EKG taken at 20:47. sinus rhythm, no ST segment or T-wave abnormalities. Ventricular rate 75. VA interval 138. QRS duration 89. QTc 409 Past Medical History Past Medical History: Asthma, COPD, Hypertension, Seizure Disorder Additional Past Medical History / Comment(s): tooth abscess History of Any Multi-Drug Resistant Organisms: None Reported Past Surgical History: No Surgical Hx Reported, Hernia Repair Past Psychological History: No Psychological Hx Reported, Anxiety, Depression Smoking Status: Former smoker, Vaper Past Alcohol Use History: None Reported Past Drug Use History: None Reported General Exam Limitations: no limitations General appearance: alert, anxious Respiratory exam: Present: normal lung sounds bilaterally. Absent: respiratory distress, wheezes, rales, rhonchi, stridor, chest wall tenderness Cardiovascular Exam: Present: regular rate, normal rhythm, normal heart sounds. Absent: systolic murmur, diastolic murmur, rubs, gallop, clicks GI/Abdominal exam: Present: soft, normal bowel sounds. Absent: distended, tenderness, guarding, rebound, rigid Extremities exam: Present: other (No tremors ) Neurological exam: Present: alert, oriented X3, CN II-XII intact Psychiatric exam: Present: normal affect, anxious Skin exam: Present: warm, dry, intact, normal color. Absent: rash Course Vital Signs 01/02/22 20:48 Temperature 98.7 F Pulse Rate 81 Respiratory 16 Rate Blood Pressure 129/91 O2 Sat by Pulse 100 Oximetry Chest Pain MDM - MDM This is a 46-year-old male presenting with chest pain. Patient appears anxious. Vitals within normal limits. EKG shows sinus rhythm without ST or T wave abnormality. Laboratory studies obtained and are unremarkable. Troponin within normal limits. Chest x-ray shows no acute process. Results discussed with patient. Patient is most concerned that he needs a new Valium prescription. I did review [facility]. Patient has gotten several Valium prescriptions from various providers in the past year. He was prescribed 3 days of Valium on 12/03 which he verifies. Patient states he is withdrawing from this prescription however given that this was one month ago along with presentation and physical exam, I do not believe patient is in acute withdrawal. Patient continuously shows drug-seeking behavior. I declined prescribing him this medication. We discussed the importance of establishing a primary care provider or seeing mental health specialist who can prescribe this medication. Dr. Rosales is my attending. Disposition Clinical Impression: Chest pain, Headache, Drug-seeking behavior Disposition: HOME SELF-CARE Condition: Good Instructions (If sedation given, give patient instructions): Chest Pain (ED) Additional Instructions: Take Tylenol or Motrin for pain. It is important to establish care with a primary care provider. Return to the emergency department experience new, concerning, or worsening symptoms. Is patient prescribed a controlled substance at d/c from ED?: No Referrals: None,Stated [Primary Care Provider] - 1-2 days Time of Disposition: 22:21
== END 2022-01-02 22:40 | disposition home or self-care (01) ==
LOC: EC 20:38
DX: R07.9 Chest pain, unspecified (principal); R51.9 Headache, unspecified; J45.909 Unspecified asthma, uncomplicated; J44.9 Chronic obstructive pulmonary disease, unspecified; I10 Essential (primary) hypertension; G40.909 Epilepsy, unspecified, not intractable, without status epilepticus; F32.A Depression, unspecified; F41.9 Anxiety disorder, unspecified; Z87.891 Personal history of nicotine dependence; Z76.5 Malingerer [conscious simulation]; Z79.51 Long term (current) use of inhaled steroids; Z79.810 Long term (current) use of selective estrogen receptor modulators (SERMs); Z88.0 Allergy status to penicillin; Z88.5 Allergy status to narcotic agent; Z88.6 Allergy status to analgesic agent
CPT/HCPCS: 36415; 71046; 80053; 83735; 84484; 85025; 85610; 85730; 93005; 96360; 99285

== ENCOUNTER → 2022-07-18 | Outpatient (CLI) | payer OTHER ==
--- NOTE | 2022-07-19 08:41 | CT ---
EXAMINATION TYPE: CT abdomen pelvis wo/w con DATE OF EXAM: 07/18/2022 COMPARISON: 03/17/2019 HISTORY: 46-year-old male R63.4, abnormal weight loss, LLQ pain, bowel habit changes TECHNIQUE: Contiguous axial scanning of the abdomen and pelvis before and after administration of 100 ml Isovue-370 IV contrast. Delayed images through the kidneys and coronal/sagittal reconstructions performed. CT DLP: 1718.1 mGycm Automated exposure control for dose reduction was used. FINDINGS: Heart normal size without pericardial effusion. Lung bases clear without pleural effusion. No focal liver lesion or biliary ductal dilatation. Portal venous system is patent. Adrenal glands, kidneys, spleen, and pancreas within normal limits. No dilated small bowel, free fluid, or free air. No mesenteric or retroperitoneal lymphadenopathy. Appendix not well seen. No secondary findings of acute appendicitis in the right lower quadrant. Oral contrast progressed to the distal transverse colon. There is mild overall stool burden. No peric olonic inflammatory change. Bladder urine distended. Mild circumferential wall thickening. Prostate gland measures 4.3 cm wide. N o abnormal fluid collection in the pelvis or pelvic lymphadenopathy. Moderate degenerative disc disease L5-S1 and facet arthropathy lower lumbar spine. IMPRESSION: 1. NO ACUTE INFLAMMATORY PROCESS IDENTIFIED IN THE ABDOMEN OR PELVIS TO EXPLAIN THE PATIENT'S SYMPTOM S. 2. MILD CIRCUMFERENTIAL BLADDER WALL THICKENING COULD REFLECT CHRONIC BLADDER WALL HYPERTROPHY OR CYS TITIS. CLINICALLY CORRELATE. PROSTATE GLAND MILDLY ENLARGED AT 4.2 CM WIDE.
== END | disposition home or self-care (01) ==
LOC: RADCTMAIN 17:14
PROVIDERS: ATTEND Family Medicine
DX: R63.4 Abnormal weight loss (principal); R10.32 Left lower quadrant pain; R19.4 Change in bowel habit
CPT/HCPCS: 74178; Q9967

== ENCOUNTER 2023-01-28 14:25 | Emergency (ER) | payer OTHER ==
[2023-01-28] MEDS ORDERED: PROPRANOLOL 40 MG TAB PO STA (14:40)
[2023-01-28] MEDS ORDERED: FAMOTIDINE 20 MG/2 ML VIAL IV STA (14:43)
--- NOTE | 2023-01-28 14:58 | ED ---
Chest Pain HPI - General Chief Complaint: Anxiety Stated Complaint: Anxiety Time Seen by Provider: 01/28/23 14:33 Source: patient, RN notes reviewed Mode of arrival: EMS Limitations: no limitations - History of Present Illness Initial Comments: This is a 47 year old male who presents to the emergency department for chest pain and anxiety. States that last night he started to develop pain starting in the epigastric region spreading up into his chest. He then felt like he was being strangled and when he would lay down, felt like he cannot breathe. He was evaluated here for similar problems a year ago, however he said that this was related to Valium withdrawals. He is no longer experiencing Valium withdrawals and is concerned about a heart problem. Denies any nausea or vomiting. Denies any personal or family history of cardiac problems. He does also note that he is supposed to have outpatient tests, including a stress test, Holter monitor, colonoscopy, and cystoscopy, however he does not have transportation. MD Complaint: chest pain - Related Data Home Medications Medication Instructions Recorded Confirmed Albuterol Sulfate [Proair Hfa] 2 puff INHALATION RT-QID PRN 06/20/21 01/02/22 Tiotropium [place] [Spiriva] 18 mcg INHALATION RT-DAILY 01/02/22 01/02/22 atenoloL [Tenormin] 50 mg PO DAILY 01/02/22 01/02/22 Allergies Allergy/AdvReac Type Severity Reaction Status Date / Time Penicillins Allergy Rash/Hives Verified 01/02/22 22:07 codeine AdvReac Hallucinati Verified 01/02/22 22:07 ons hydroxyzine [From Vistaril] AdvReac Seizures Verified 01/02/22 22:07 Review of Systems ROS Statement: Those systems with pertinent positive or pertinent negative responses have been documented in the HPI. ROS Other: All systems not noted in ROS Statement are negative. Past Medical History Past Medical History: Asthma, COPD, Hypertension, Seizure Disorder Additional Past Medical History / Comment(s): tooth abscess History of Any Multi-Drug Resistant Organisms: None Reported Past Surgical History: No Surgical Hx Reported, Hernia Repair Past Psychological History: No Psychological Hx Reported, Anxiety, Depression Smoking Status: Former smoker, Vaper Past Alcohol Use History: None Reported Past Drug Use History: None Reported General Exam Limitations: no limitations General appearance: alert, anxious Head exam: Present: atraumatic, normocephalic, normal inspection Respiratory exam: Present: normal lung sounds bilaterally. Absent: respiratory distress, wheezes, rales, rhonchi, stridor Cardiovascular Exam: Present: normal rhythm, tachycardia GI/Abdominal exam: Present: soft, normal bowel sounds. Absent: distended, tenderness, guarding, rebound, rigid Neurological exam: Present: alert, oriented X3, CN II-XII intact Psychiatric exam: Present: agitated, anxious Skin exam: Present: warm, dry, intact, normal color. Absent: rash Course Vital Signs 01/28/23 01/28/23 01/28/23 14:26 16:28 17:47 Temperature 98.9 F Pulse Rate 103 H 79 72 Respiratory 18 18 16 Rate Blood Pressure 143/92 147/86 130/85 O2 Sat by Pulse 99 97 Oximetry Chest Pain MDM - MDM This is a 47-year-old male who presents to the emergency department for chest pain. Was pt. sent in by a medical professional or institution? @ -No Did you speak to anyone other than the patient for history? @ -No Did you review nursing and triage notes? @ -Yes, and I agree, it is accurate with regards to the patient's symptoms. Were old charts reviewed? @ -No Differential Diagnosis? @ -Differential Chest Pain: Stable Angina, Unstable Angina, STEMI, NSTEMI Aortic Dissection, Pneumothorax, Musculoskeletal, Esophageal Spasm GERD, Cholecystitis, Pancreatitis, Zoster, this is not meant to be an all-inclusive list. EKG interpreted by me (3pts min.)? @ -EKG interpreted by me demonstrating the following: Sinus rhythm. Ventricular rate 90 beats per minute, IN interval 149 ms, QRS duration 91 ms, QTC 372 ms. X-rays interpreted by me (1pt min.)? @ -Chest x-ray obtained, my interpretation identifies no localized consolidations or infiltrates. CT interpreted by me (1pt min.)? @ -CT angiogram of the chest obtained. My interpretation identifies no evidence of a pulmonary embolus. U/S interpreted by me (1pt. min.)? @ -Not obtained What testing was considered but not performed? (CT, X-rays, U/S, labs)? Why? @ -None What meds were considered but not given? Why? @ -None Did you discuss the management of the patient with other professionals? @ -No Did you reconcile home meds? @ -No Was smoking cessation discussed for >3mins.? @ -I discussed smoking cessation for greater than 3 minutes. The risk of smoking were discussed with the patient including but not limited to risks of cancer, stroke, coronary artery disease and COPD. Also discussed with patient were multiple methods of quitting smoking. Lastly we discussed the financial cost of smoking. Was critical care preformed (if so, how long)? @ -No Were there social determinants of health that impacted care today? How? (Homelessness, low income, unemployed, alcoholism, drug addiction, transportation, low edu. Level, literacy, decrease access to med. care, shelter, rehab)? @ -No Was there de-escalation of care discussed even if they declined? (Discuss DNR or withdrawal of care, Hospice)? @ -No What co-morbidities impacted this encounter? (DM, HTN, Smoking, COPD, CAD, Cancer, CVA, Hep., AIDS, mental health diagnosis, sleep apnea, morbid obesity)? @ -Anxiety Was patient admitted / discharged? @ -Discharged. Lab work obtained revealing an elevated D-dimer. Troponin indeterminate at 0.023. Chest x-ray reveals no acute process. We did obtain a CTA of the chest due to the elevated d-dimer. This revealed no evidence of a pulmonary embolus or other acute process. Given the indeterminate troponin level, a second troponin was obtained and the second troponin was also 0.023. Patient's cardiac score is 1-2. He appeared anxious in the emergency department, however he denied feeling this way. Discussed that the cause of his symptoms is not entirely clear. While he denies feeling anxious, it could be related to anxiety. I did recommend having EPS speak with him, however she was not available at the time and the patient did not want to wait for EPS evaluation, as he did not feel like this was the problem. I did advise that he needs to follow through on his outpatient testing with his primary care provider if he would like to get more answers as to his ongoing symptoms. He was given a tab let of Ativan to take at home if needed, but declined wanting to take this in the emergency department. He was otherwise discharged home in stable condition. Undiagnosed new problem with uncertain prognosis? @ -None Drug Therapy requiring intensive monitoring for toxicity (Heparin, Nitro, Insulin, Cardizem)? @ -None Were any procedures done? @ -None Diagnosis/symptom? @ -Chest pain, shortness of breath Acute, or Chronic, or Acute on Chronic? @ -Acute Uncomplicated (without systemic symptoms) or Complicated (systemic symptoms)? @ -Complicated Side effects of treatment? @ -None Exacerbation, Progression, or Severe Exacerbation] @ -Not applicable Poses a threat to life or bodily function? @ -Unlikely Return precautions reviewed in depth, the patient is instructed to return to the emergency department with any new, worsening, or concerning symptoms. Patient verbalized understanding. This case was discussed in detail with the attending ED physician, Dr. Kumar. Presentation, findings, and treatment plan discussed in detail as well. Disposition Clinical Impression: Chest pain, Shortness of breath, Nicotine dependence Disposition: HOME SELF-CARE Instructions (If sedation given, give patient instructions): Chest Pain (ED) Additional Instructions: Return to the emergency department with any new, worsening, or concerning symptoms. Try to follow through with outpatient testing as recommended and follow up with your primary care provider. Is patient prescribed a controlled substance at d/c from ED?: No Referrals: Corky Moreno MD [Primary Care Provider] - 1-2 days
[2023-01-28 15:24] LABS: Basophils # (A) 0.1 k/uL (0-0.2); Basophils % (A) 1 %; Eosinophils # (A) 0.6 k/uL (0-0.7); Eosinophils % (A) 8 %; HCT 48.5 % (39.0-53.0); HGB 16.2 gm/dL (13.0-17.5); Lymphocytes # (A) 2.1 k/uL (1.0-4.8); Lymphocytes % (A) 30 %; MCH 30.5 pg (25.0-35.0); MCHC 33.4 g/dL (31.0-37.0); MCV 91.1 fL (80.0-100.0); Mean Platelet Volume 8.1; Monocytes # (A) 0.4 k/uL (0-1.0); Monocytes % (A) 5 %; Neutrophils # (A) 3.8 k/uL (1.3-7.7); Neutrophils % (A) 54 %; Platelet Count 229 k/uL (150-450); RBC 5.32 m/uL (4.30-5.90); RDW 12.9 % (11.5-15.5); WBC 7.1 k/uL (3.8-10.6)
[2023-01-28 15:38] LABS: ALT 53 U/L (4-49); AST 44 U/L (17-59); African American GFR (CKD) >90 (>60 ml/min/1.73 sqM); Albumin 4.5 g/dL (3.5-5.0); Alkaline Phosphatase 79 U/L (38-126); Blood Urea Nitrogen 17 mg/dL (9-20); Calcium 9.4 mg/dL (8.4-10.2); Carbon Dioxide 23 mmol/L (22-30); Glucose 96 mg/dL (74-99); Non-African American GFR(CKD) >90 (>60 ml/min/1.73 sqM); Total Bilirubin 0.9 mg/dL (0.2-1.3); Total Protein 7.6 g/dL (6.3-8.2)
[2023-01-28 15:41] LABS: INR 0.9 (<1.2)
[2023-01-28 15:45] LABS: NT-Pro-B-Type Natriuretic Pept 179 pg/mL
[2023-01-28 15:52] LABS: Anion Gap 12 mmol/L; Chloride 104 mmol/L (98-107); Sodium 139 mmol/L (137-145)
[2023-01-28 15:59] LABS: Potassium 4.7 mmol/L (3.5-5.1)
[2023-01-28 16:05] LABS: Partial Thromboplastin Time 21.8 sec (22.0-30.0)
[2023-01-28] MEDS ORDERED: SODIUM CHLORIDE 0.9% 1,000 ML IV STA (16:11)
[2023-01-28 16:12] LABS: Cocaine Screen,Urine Not Detected (NotDetected); Phencyclidine Screen,Urine Not Detected (NotDetected); Urn Cannabinoid Scrn Not Detected (NotDetected)
[2023-01-28 16:13] LABS: Amphetamine Screen,Urine Not Detected (NotDetected); Barbiturate Screen,Urine Not Detected (NotDetected); Benzodiazepines Screen,Urine Not Detected (NotDetected); Methadone Screen, Urine Not Detected (NotDetected); Opiate Screen,Urine Not Detected (NotDetected); Oxycodone Screen, Urine Not Detected (NotDetected); Tricyclic Antidepressant,Urine Not Detected (NotDetected)
--- NOTE | 2023-01-28 16:13 | XR ---
EXAMINATION TYPE: XR chest 2V DATE OF EXAM: 01/28/2023 3:52 PM CLINICAL INDICATION:Male, 47 years old with history of Chest Pain; COMPARISON: Chest radiographs from 01/02/2022 TECHNIQUE: XR chest 2V Frontal and lateral views of the chest. FINDINGS: Lungs/Pleura: There is no evidence of pleural effusion, focal consolidation, or pneumothorax. Pulmonary vascularity: Unremarkable. Heart/mediastinum: Cardiomediastinal silhouette is unremarkable. Musculoskeletal: No acute osseous pathology. Other findings: None IMPRESSION: No acute cardiopulmonary disease/process.
--- NOTE | 2023-01-28 16:49 | CT ---
EXAMINATION TYPE: CT chest angio for PE CT DLP: 423.5 mGycm, Automated exposure control for dose reduction was used. DATE OF EXAM: 01/28/2023 4:28 PM COMPARISON: Chest radiograph from same day. Multiple CTs of the chest with most recent on 04/29/2010. CLINICAL INDICATION:Male, 47 years old with history of Chest pain, BRIANNA, elevated d-dimer; sob TECHNIQUE/CONTRAST: CTA scan of the thorax is performed with IV Contrast, patient injected with 65 mL of Isovue 370, MIP images are created and reviewed these are created on a separate workstation.. FINDINGS: Pulmonary Artery: There is no evidence for a filling defect within the pulmonary vasculature to sugge st acute pulmonary embolism. The pulmonary artery is of normal size. Lungs/Pleura: No evidence of focal consolidation, pleural effusion or pneumothorax. Left upper lobe c alcified granuloma series 406 image 50 Airway: Large airways are patent. Heart: Heart is within normal limits for size. Vasculature: No evidence of aortic aneurysm. Mediastinum: No gross evidence of adenopathy. Musculoskeletal: Mild degenerative disc disease changes are present throughout the thoracolumbar spin e. Hemostatic right rib fracture. Soft Tissues: Unremarkable. Lower neck: No significant findings. Upper Abdomen: No significant findings. IMPRESSION: No evidence of pulmonary embolism.
[2023-01-28] MEDS ORDERED: LORazepam 1 MG TAB PO STA (18:24)
[2023-01-28 19:02] VITALS: BP 121/80; PULSE 75; RESP 18; TEMP 98.8
[2023-01-28 19:08] LABS: C Reactive Protein 0.6 mg/dL (<1.0)
== END 2023-01-28 18:48 | disposition home or self-care (01) ==
LOC: EC 14:25
DX: R07.89 Other chest pain (principal); R06.02 Shortness of breath; F17.200 Nicotine dependence, unspecified, uncomplicated; I10 Essential (primary) hypertension; J44.89 Other specified chronic obstructive pulmonary disease; Z79.899 Other long term (current) drug therapy; Z88.0 Allergy status to penicillin; Z88.5 Allergy status to narcotic agent; Z88.8 Allergy status to other drugs, medicaments and biological substances
CPT/HCPCS: 36415; 93005; 85379; 83880; 80053; 84443; 83735; 84484; 85025; 85610; 85730; 86140; 82784; 86038; 80306; 71046; 71275; 99285; 96374; 96361; J3490; Q9967

== ENCOUNTER → 2024-02-22 | Outpatient (CLI) | payer OTHER ==
--- NOTE | 2024-02-23 10:12 | XR ---
EXAMINATION TYPE: XR shoulder complete 3 views RT DATE OF EXAM: 02/22/2024 4:48 PM COMPARISON: 09/13/2021 CLINICAL INDICATION: Male, 48 years old with history of M25.511 ACUTE PN RT SHOULDER, , FINDINGS: AC joint appears congruent and intact. Subacromial space is preserved. No tendinous or bursal calcifi cations. Small delineation to the greater tuberosity. No acute fracture, subluxation, or dislocation. IMPRESSION: No acute osseous abnormality seen. [facility], , 02/23/2024 10:10 AM
== END | disposition home or self-care (01) ==
LOC: RADXRMAIN 16:30
PROVIDERS: ATTEND Family Medicine
DX: M25.511 Pain in right shoulder (principal)